=== PATIENT | male | born 1990 | race Caucasian/White ===

== ENCOUNTER 2016-11-19 07:01 | Day surgery (SDC) | payer OTHER ==
[2016-11-19] MEDS ORDERED: LACTATED RINGERS 1,000 ML IV SCH ×2 (07:49→08:00)
[2016-11-19 07:57] VITALS: RESP 16; TEMP 97.6
[2016-11-19] MEDS ORDERED: LIDOCAINE 1% 20 ML VIAL (10MG/ML) FOR IV START INTRADERMA ONE (07:59)
[2016-11-19] MEDS ORDERED: TRIAMCINOLONE ACETONIDE 40 MG/ML 1 ML VIAL ONE (08:04)
[2016-11-19] MEDS ORDERED: fentaNYL (PF) 50 MCG/ML 2 ML AMP ONE (08:04)
[2016-11-19] MEDS ORDERED: BUPIVACAINE (PF) 0.25% 30 ML VIAL ONE (08:04)
[2016-11-19] MEDS ORDERED: MIDAZOLAM 2 MG/2 ML VIAL ONE (08:04)
[2016-11-19] MEDS ORDERED: IOHEXOL 180 MG/ML 1 ML ML ONE (08:04)
--- NOTE | 2016-11-19 08:25 | P.PCN ---
Date of Procedure: 11/19/16 Preoperative Diagnosis: Left lumbar radiculopathy Postoperative Diagnosis: Left lumbar radiculopathy Procedure(s) Performed: Lumbar epidural steroid injection under fluoroscopic guidance Anesthesia: MAC Surgeon: Rex Mcgrath Pathology: none sent Condition: stable Disposition: PACU Description of Procedure: The patient was seen in preop holding area consent was obtained then he was brought into the procedure room and placed in prone position. Skin was prepped with Betadine 3 and draped in a sterile manner. Lidocaine 1% was used to numb the skin above the target point that was at the L4 5 level in the left paramedian approach. I used 20-gauge 3-1/2 inch ToAllFreed epidural needle with loss -of-resistance to air to identify the epidural space. There was positive loss- of-resistance to air at about 9 cm from skin negative aspiration for any CSF or blood negative paresthesia. I then injected 1 mL of Isovue which showed typical epidurogram with AP and lateral views of fluoroscopy after that I injected 80 mg of Kenalog +2 MLS of Marcaine 0.25% +4 MLS of posterior free normal saline to a total volume of 7 MLS in epidural space. Pt tolerated procedure well. For his next procedure I think we should use the longer epidural needle ( a 5 or 6 inch needle).
[2016-11-19] MEDS ORDERED: IV FLUID CONTINUATION 1,000 ML IV ONE (08:31)
--- NOTE | 2016-11-19 08:32 | FL ---
EXAMINATION TYPE: FL guided pain mgmt statistic DATE OF EXAM: 11/19/2016 8:26 AM HISTORY: Flouroscopy time 6 seconds of fluoroscopy provided. IMPRESSION: 1. Fluoroscopy time.
[2016-11-19 09:03] VITALS: BP 105/68; PULSE 74
--- NOTE | 2016-11-22 17:42 | CDI ---
Dear Dr. Mcgrath, Per your procedure note MAC sedation is documented. The Pain Procedure Record, however, has nothing marked under Anesthesia Plan and Versed/Fentanyl with times documented in the section below. This is conflicting documentation that needs clarification for proper reporting purposes. Please clarify if the anesthesia provided for Odette Camejo was MAC (Monitored Anesthesia Care) or Conscious/Moderate Sedation> Please document this clarification on an addendum to the procedure note. Thank you for your time Evelin Abdi,[facility] Outpatient [employer] Architect Patricia Smith Liveroof [email or web address]
--- NOTE | 2017-01-02 11:43 | CE ---
ADDENDUM: Moderate sedation provided instead of MAC sedation.
== END 2016-11-19 09:04 | disposition home or self-care (01) ==
LOC: ORPAIN 07:01
PROVIDERS: ATTEND Anesthesiology
DX: M54.16 Radiculopathy, lumbar region (principal)
CPT/HCPCS: 62323; 99152; J2250; J3301; Q9965; J3010

== ENCOUNTER 2017-01-29 07:44 | Day surgery (SDC) | payer OTHER ==
[2017-01-26 15:10] VITALS: BMI 39.3
[~2017-01-29 07:44] MED LIST: LACTATED RINGERS 1,000 ML IV SCH
[2017-01-29 08:07] VITALS: RESP 16; TEMP 96.7
[2017-01-29] MEDS ORDERED: LIDOCAINE 1% 20 ML VIAL (10MG/ML) FOR IV START SQ ONE (08:16)
[2017-01-29] MEDS ORDERED: fentaNYL (PF) 50 MCG/ML 2 ML AMP ONE (09:06)
[2017-01-29] MEDS ORDERED: TRIAMCINOLONE ACETONIDE 40 MG/ML 1 ML VIAL ONE (09:06)
[2017-01-29] MEDS ORDERED: MIDAZOLAM 2 MG/2 ML VIAL ONE (09:06)
[2017-01-29] MEDS ORDERED: IOHEXOL 180 MG/ML 1 ML ML ONE (09:06)
[2017-01-29] MEDS ORDERED: IV FLUID CONTINUATION 1,000 ML IV ONE (09:32)
--- NOTE | 2017-01-29 09:32 | P.PCN ---
Date of Procedure: 01/29/17 Procedure(s) Performed: PREOPERATIVE DIAGNOSIS: 1- Lumbar Degenerative Disc Diseases 2-Lumbar radiculopathy. 3-lumbar disc herniation POSTOPERATIVE DIAGNOSIS: Same as preoperative diagnosis PROCEDURE 1. Lumbar epidural steroid injection under fluoroscopic guidance at the L4-5 level. 2. Lumbar epidurogram. ANESTHESIA: Local with 1% lidocaine 3 ml and IV sedation with Versed 2 mg , and [id number] Mcg EBL: Minimal PROCEDURE INDICATION: The patient with low back pain and radiculitis symptoms unresponsive to conservative treatment. Fluoroscopy was used to optimize visualization of the needle placement and to maximize safety. PROCEDURE DESCRIPTION / TECHNIQUE: The patient was seen and identified in the preoperative area. Risks, benefits , complications including but not limited to infections ,bleeding ,allergic reaction to the medications ,nerve damage and not complete pain releife , and alternatives were discussed with the patient. The patient agreed to proceed with the procedure and signed the consent. IV was started, and vital signs were stable. Patient was taken to the OR and time out was completed. The patient was placed in the prone position on procedure table and a pillow was placed under the abdomen to reduce lumbar lordosis. The lumbosacral area was prepped and draped in the usual sterile fashion.ere closely monitored during the procedure. Conscious sedation was used during the procedure to decrease patients anxiety. Vital signs was monitered during the entire procedure. Using anterior-posterior fluoroscopy, the L4-5 interlaminar space was identified and the skin over this site was marked and then infiltrated with 1% lidocaine subcutaneously. Subsequently, a 20-gauge Tuohy epidural needle was inserted and advanced toward the epidural space using the ``Loss of resistance technique and guided by AP and lateral fluoroscopy. The correct needle position in the epidural space was verified with the injection of 2 mL of the water soluble contrast dye Omnipaque 180 contrast and observing an excellent epidurogram with the epidural spread of the dye, after negative aspiration for blood and CSF and in the absence of paresthesias. Again after negative aspiration, a 6 ml mixture containing 80 mg of Kenalog and 2 ml of preservative free Normal Saline, and 2 ml of preservative free lidocaine 1% solution was injected and a washout of epidurogram was seen. Needle was withdrawn intact, skin was cleansed, and bandages were applied. COMPLICATIONS: None DISPOSITION / PLANS: The patient was placed in a supine position and transferred to the recovery area in a stable condition for observation. There was no evidence of lower extremity motor or sensory deficit after the procedure. Patient was discharged from the recovery room after meeting discharge criteria. Home discharge instructions were given to the patient by the staff. The patient was reexamined prior to discharge. The patient will schedule a follow up in the clinic in 2-4 weeks.
[2017-01-29 09:52] VITALS: BP 121/72; PULSE 87
--- NOTE | 2017-01-29 10:21 | FL ---
Fluoroscopy HISTORY: Pain 3 seconds fluoroscopy time supplied to the referring clinician. 1 intraoperative C-arm images docume nt the procedure. See dictated report from anesthesia.
== END 2017-01-29 10:11 | disposition home or self-care (01) ==
LOC: ORPAIN 07:44
PROVIDERS: ATTEND Specialist
DX: M51.16 Intervertebral disc disorders with radiculopathy, lumbar region (principal); Z91.030 Bee allergy status
CPT/HCPCS: 62323; J2250; J3301; Q9965; J3010

== ENCOUNTER → 2017-03-06 | Outpatient (CLI) | payer OTHER | END | disposition home or self-care (01) | LOC: LABWHC1 09:19 | PROVIDERS: ATTEND Psychiatry & Neurology Psychiatry | DX: Z51.81 Encounter for therapeutic drug level monitoring (principal); Z79.899 Other long term (current) drug therapy | CPT/HCPCS: 80306 ==

== ENCOUNTER → 2017-07-16 | Outpatient (CLI) | payer OTHER ==
[2017-07-16 12:57] VITALS: RESP 16
[2017-07-16 13:08] VITALS: BP 122/79; PULSE 84
--- NOTE | 2017-07-16 14:10 | P.CONS ---
History of Present Illness - Reason for Consult Consult date: 07/16/17 - History of Present Illness This is. This 26 years old male with a chronic history of severe low back pain, with lumbar herniated disc disease and lumbar disc desiccation and lumbar facet degeneration, we have done lumbar epidural steroid injection patient reported that he had some benefit but currently is complaining of increased severe low back and mid back pain, with radiation to the lower extremity associated with some numbness and tingling sensation with occasional weakness in the lower extremity, reported that occasionally he would lose control over his lower extremity , and also he is complaining of severe mid back pain localized in the mid back area, pain intensity increases with any movement Past Medical History Past Medical History: Asthma, Musculoskeletal Disorder Additional Past Medical History / Comment(s): HERNIATED DISCS, back pain radiates marissa legs History of Any Multi-Drug Resistant Organisms: None Reported Additional Past Surgical History / Comment(s): EAR TUBES. Pain Procedures. Past Anesthesia/Blood Transfusion Reactions: Motion Sickness Past Psychological History: ADD/ADHD, Bipolar, Depression Smoking Status: Former smoker Past Alcohol Use History: None Reported Additional Past Alcohol Use History / Comment(s): started smoking at age 14; quit 2 months ago; uses electric cigs with nicotine Past Drug Use History: None Reported - Past Family History Mother Family Medical History: No Reported History Son(s) Family Medical History: Cancer Father Family Medical History: Deep Vein Thrombosis (DVT) Medications and Allergies Home Medications Medication Instructions Recorded Confirmed Type Albuterol Inhaler [Ventolin 2 puff INHALATION Q4HR PRN 04/26/14 07/16/17 History Inhaler] Albuterol Nebulized [Ventolin 2.5 mg INHALATION QID PRN 04/26/14 07/16/17 History Nebulized] Beclomethasone Dipropionate [Qvar 2 puff INHALATION BID 04/26/14 07/16/17 History 80 mcg/puff] Fluticasone Propionate [Flonase] 1 spray EA NOSTRIL BID 04/26/14 07/16/17 History Ranitidine HCl [Zantac] 150 mg PO TID 04/26/14 07/16/17 History Naproxen [Naprosyn] 500 mg PO Q12HR #24 tab 05/17/14 07/16/17 Rx SUMAtriptan SUCCINATE [Imitrex] 100 mg PO DIRECTED PRN 02/27/15 10/05/17 History ARIPiprazole [Abilify] 5 mg PO DAILY 07/01/15 07/16/17 History Cyclobenzaprine [Flexeril] 10 mg PO BID PRN #60 tab 08/11/16 07/16/17 Rx Gabapentin [Neurontin] 400 mg PO TID #90 cap 10/01/16 07/16/17 Rx Lisdexamfetamine Dimesylate 1 tab PO DAILY 10/01/16 07/16/17 History [Vyvanse] lamoTRIgine [LaMICtal] 150 mg PO BID 01/26/17 07/16/17 History HYDROcodone/APAP 10-325MG [Walnut 1 tab PO BID PRN 07/16/17 07/16/17 History 10-325] traZODone HCL [TraZODone HCl] 200 mg PO HS PRN 07/16/17 07/16/17 History Allergies Allergy/AdvReac Type Severity Reaction Status Date / Time venom-honey bee Allergy extensive Verified 07/16/17 12:43 [bee venom (honey bee)] burning and itching mosquito bites Allergy Swelling Uncoded 07/16/17 12:43 Physical Exam Vitals: Vital Signs Pulse Resp BP Pulse Ox 07/16/17 12:47 84 16 122/79 97 Intake and Output 07/15/17 07/16/17 07/16/17 22:59 06:59 14:59 Other: Weight 127.006 kg Patient Weight 07/17/17 06:59 Weight 127.006 kg Physical Examinations : 1-Constitutiona : Cooperative , not in acute distress . 2-HEENT : nech ; supple , no Lymphadenopathy , normal thyroid size . eyes : no ptosis , no icterus, no photophobia . ENT : normal of hearing , normal oropharynx , no Thrush . 3- Respiratory : Chest clear to auscultations Bilaterally , no wheezing , no Rhonchi . 4- Cardiovascular : regular rate and rhythem , S1 , S2 , no S3 , no S4. 5- Gastrointestinal : abdomen soft no tenderness , bowel sounds positive all four quadrents , no organomegally . 6- Genitourinary : Defferred . 7- neurologic : Cranial nerve II to XII intact , no focal neurological deffecit . 8-psychatric : alert , oriented X 3 , appropriate affect , intact judgment and insight . 9-Lymphatic : no Lymphadenopathy . 10- musculoskeltal : Thoracic spine = flexion and extension of the mid back associated with severe pain Positive facet loading test thoracic area Positive anadenia in the thoracic area right side T7 -to T9 , Lumber spine = normal moter stegnth lower extremities ,thigh and legs .5/5 deep tendon reflexes : normal Knee Jerk , normal ankle Jerk . positive lumber facet Loading Test strait leg raising test positive at 30 degree , RT ,LT , Fabere test positive RT and positive LT . Assessment and Plan Plan: Assessment and plan= chronic low back pain secondary to lumbar degenerative disc disease , lumbar spondylosis with lumbar facet arthropathy , lumbar herniated disc disease Patient had a new complaint/mid back pain mostly secondary to thoracic herniated disc disease Status post lumbar epidural steroid injections patient continues to have severe low back pain and also mid back pain chronic and current use of high-risk medication (opioids) Patient denies any side effects of the current pain medication and the current treatment/medication ML and the patient to do activity of daily living , Diagnoses, prognosis, treatment options, including but not limited to physical therapy, medication management, interventional therapies, and surgery, were discussed with the patient All the questions answered Patient signed the narcotic agreement, and he was orally counseled, not to overuse, not to abuse, not to Divert , not tp sell pain medication, and to take it as prescribed only, Patient was counseled not to drive or operate heavy equipment while using narcotic medication, and advised not to use alcohol or any Illicit drugs while using the narcotis, the patient's verbalized understanding that lack of compliance with any of the above instructions and will likely to cause discharge from the pain service, not to renew his narcotic prescriptions Medication managements= patient will be given prescription refills for 1-Walnut every 6 hours dispense 30 with one refil Intervention = patient for reffered to have thoracic spine MRI and lumbar spine MRI to identify the etiology that causing the pain , Time with Patient: Less than 30
== END | disposition home or self-care (01) ==
LOC: PNWHC3 12:31
PROVIDERS: ATTEND Specialist
DX: M51.26 Other intervertebral disc displacement, lumbar region (principal); M51.36 Other intervertebral disc degeneration, lumbar region; M47.816 Spondylosis without myelopathy or radiculopathy, lumbar region; M46.86 Other specified inflammatory spondylopathies, lumbar region; Z79.899 Other long term (current) drug therapy; Z79.1 Long term (current) use of non-steroidal anti-inflammatories (NSAID); Z91.030 Bee allergy status; Z87.891 Personal history of nicotine dependence
CPT/HCPCS: 99211

== ENCOUNTER 2017-07-31 01:17 | Emergency (ER) | payer OTHER ==
[2017-07-31 01:31] VITALS: BP 158/91; PULSE 95; RESP 16; TEMP 98.3
[2017-07-31] MEDS ORDERED: SULFAMETH-TMP DS STARTER PACK 2 TAB BTL PO STA (01:38)
--- NOTE | 2017-07-31 01:57 | ED ---
Extremity Problem HPI - General Chief complaint: Extremity Problem,Nontraumatic Stated complaint: Poss infection left foot Time Seen by Provider: 07/31/17 01:33 Source: patient, RN notes reviewed, old records reviewed Mode of arrival: ambulatory Limitations: no limitations - History of Present Illness Initial comments: 26-year-old male presents emergency Department chief complaint of after great toe infection. Patient reports that he thought he had an ingrown toenail last week and did try to partially remove his nail. Patient reports that he seemed to get the majority of the suction out over the past 2 days it seemed to recur. At he reports it got worse after he wears boots. Patient reports that previous ingrown toenails. Patient states he's never saw a employment office clerk before. He's had ingrown toenails removed by his primary care physician. At this time patient states he is not diabetic. He has not been on any recent antibiotics. Denies any fever or chills, or difficulty with range of motion of his foot or toes. Denies any peripheral paresthesias. - Related Data Home Medications Medication Instructions Recorded Confirmed Albuterol Inhaler [Ventolin 2 puff INHALATION Q4HR PRN 04/26/14 07/16/17 Inhaler] Albuterol Nebulized [Ventolin 2.5 mg INHALATION QID PRN 04/26/14 07/16/17 Nebulized] Beclomethasone Dipropionate [Qvar 2 puff INHALATION BID 04/26/14 07/16/17 80 mcg/puff] Fluticasone Propionate [Flonase] 1 spray EA NOSTRIL BID 04/26/14 07/16/17 Ranitidine HCl [Zantac] 150 mg PO TID 04/26/14 07/16/17 SUMAtriptan SUCCINATE [Imitrex] 100 mg PO DIRECTED PRN 12/08/14 07/16/17 ARIPiprazole [Abilify] 5 mg PO DAILY 07/01/15 07/16/17 Lisdexamfetamine Dimesylate 1 tab PO DAILY 10/01/16 07/16/17 [Vyvanse] lamoTRIgine [LaMICtal] 150 mg PO BID 01/26/17 07/16/17 HYDROcodone/APAP 10-325MG [Sherman 1 tab PO BID PRN 07/16/17 07/16/17 10-325] traZODone HCL [TraZODone HCl] 200 mg PO HS PRN 07/16/17 07/16/17 Previous Rx's Medication Instructions Recorded Naproxen [Naprosyn] 500 mg PO Q12HR #24 tab 05/17/14 Cyclobenzaprine [Flexeril] 10 mg PO BID PRN #60 tab 08/11/16 Gabapentin [Neurontin] 400 mg PO TID #90 cap 10/01/16 Sulfamethox-Tmp 800-160Mg [Bactrim 2 tab PO Q12HR #40 tab 07/31/17 DS 800-160 mg] Allergies Allergy/AdvReac Type Severity Reaction Status Date / Time venom-honey bee Allergy extensive Verified 07/31/17 01:31 [bee venom (honey bee)] burning and itching mosquito bites Allergy Swelling Uncoded 07/31/17 01:31 Review of Systems ROS Statement: Those systems with pertinent positive or pertinent negative responses have been documented in the HPI. ROS Other: All systems not noted in ROS Statement are negative. Past Medical History Past Medical History: Asthma, Musculoskeletal Disorder Additional Past Medical History / Comment(s): HERNIATED DISCS, back pain radiates marissa legs History of Any Multi-Drug Resistant Organisms: None Reported Additional Past Surgical History / Comment(s): EAR TUBES. Pain Procedures. Past Anesthesia/Blood Transfusion Reactions: Motion Sickness Past Psychological History: ADD/ADHD, Bipolar, Depression Smoking Status: Former smoker Past Alcohol Use History: None Reported Past Drug Use History: None Reported - Past Family History Mother Family Medical History: No Reported History Son(s) Family Medical History: Cancer Father Family Medical History: Deep Vein Thrombosis (DVT) General Exam - General Exam Comments Initial Comments: 26-year-old male. No acute distress. Limitations: no limitations General appearance: alert, in no apparent distress Head exam: Present: atraumatic, normocephalic, normal inspection Eye exam: Present: normal appearance, PERRL, EOMI. Absent: scleral icterus, conjunctival injection, periorbital swelling ENT exam: Present: normal exam, mucous membranes moist Neck exam: Present: normal inspection. Absent: tenderness, meningismus, lymphadenopathy Respiratory exam: Present: normal lung sounds bilaterally. Absent: respiratory distress, wheezes, rales, rhonchi, stridor Cardiovascular Exam: Present: regular rate, normal rhythm, normal heart sounds. Absent: systolic murmur, diastolic murmur, rubs, gallop, clicks GI/Abdominal exam: Present: soft, normal bowel sounds. Absent: distended, tenderness, guarding, rebound, rigid Extremities exam: Present: normal inspection, full ROM, normal capillary refill. Absent: tenderness, pedal edema, joint swelling, calf tenderness Left Foot/Toe exam: Present: tenderness, swelling, erythema (Is tenderness swelling and erythema over the medial aspect of his great toenail. Evidence of a skin flap area. There is pus draining from the toenail.). Absent: normal inspection Neurovascular tendon exam: Present: no vascular compromise Gait: observed and normal Back exam: Present: normal inspection Neurological exam: Present: alert, oriented X3, CN II-XII intact Psychiatric exam: Present: normal affect, normal mood Course Vital Signs 07/31/17 01:28 Temperature 98.3 F Pulse Rate 95 Respiratory 16 Rate Blood Pressure 158/91 O2 Sat by Pulse 98 Oximetry Medical Decision Making - Medical Decision Making 26-year-old male since emergency Department chief complaint infected left toenail. He did try to remove the toenail one week ago. He was doing okay for the first few days but then over the past after wearing the bleeding became worse. Patient is not diabetic. He does have some pus draining from the medial aspect of the toenail. Aerobic wound culture obtained. I discussed that the toenail is be removed. He reports he does not have the toenail removed tonight. Patient's wound was somewhat open and there was pus draining from it. I discussed doing Epsom salts soaks. I will place the patient on Bactrim DS. Given first dose in emergency department. Discussed close follow- up with his primary care physician to have the toenail removed when he is okay with this. Patient advised to call paged primary care provider tomorrow. Patient nurse's treatment plan will comply. Return parameters were discussed. Disposition Clinical Impression: Ingrowing toenail with infection Disposition: HOME SELF-CARE Condition: Good Instructions: Ingrown Nail (ED) Additional Instructions: Is to do frequent Epsom salts soaks with the toe. Follow-up with her primary care provider. Call them tomorrow for an appointment for toenail removal. Return to the emergency department if any alarming signs or symptoms occur. Prescriptions: Sulfamethox-Tmp 800-160Mg [Bactrim DS 800-160 mg] 2 tab PO Q12HR #40 tab Referrals: Regina Martin MD [Primary Care Provider] - 1-2 days Raza Campbell DPM [STAFF PHYSICIAN] - 1-2 days Time of Disposition: 01:56
== END 2017-07-31 02:08 | disposition home or self-care (01) ==
LOC: EC 01:17
DX: L60.0 Ingrowing nail (principal); J45.909 Unspecified asthma, uncomplicated; F90.9 Attention-deficit hyperactivity disorder, unspecified type; F32.9 Major depressive disorder, single episode, unspecified; Z87.891 Personal history of nicotine dependence; Z79.51 Long term (current) use of inhaled steroids; Z79.899 Other long term (current) drug therapy; Z91.030 Bee allergy status; Z91.038 Other insect allergy status
CPT/HCPCS: 87070; 87077; 87186; 87205; 99284

== ENCOUNTER → 2017-08-27 | Outpatient (CLI) | payer OTHER ==
[2017-08-27 12:24] VITALS: BP 139/64; PULSE 90; RESP 20
--- NOTE | 2017-08-27 19:48 | P.PN ---
Subjective Progress Note Date: 08/27/17 This is a follow-up visit for this 27 years old male with a chronic history of severe low back pain, nausea with lumbar degenerative disc disease and lumbar spondylosis with lumbar facet arthropathy without myelopathy, lumbar epidural steroid injection in the past patient had short-term benefit from it, he continued to have severe low back pain, no radiation to the lower extremity but most of the pain localized in the low back area, the patient complaining of severe mid/upper back pain and we ordered MRI of the lumbar spine and annual MRI of the thoracic spine, the thoracic spine showed patient had herniated disc disease at T5 6, rile the lumbar spine showed patient had lumbar facet arthropathy and lumbar degenerative disc disease, he should continue to use the Neurontin 400 mg 3 times a day and [place] 10/[id number] 12 hours and Flexeril 10 mg twice a day he denies any side effect of the medication, he denies any excessive drowsiness or sleepiness and he denies any motor or sensory deficit Objective - Vital Signs Vital signs: Vital Signs Temp Pulse 90 08/27/17 12:18 Resp 20 08/27/17 12:18 BP 139/64 08/27/17 12:18 Pulse Ox 97 08/27/17 12:18 Intake & Output 08/27/17 08/27/17 08/28/17 06:59 18:59 06:59 Weight 129.727 kg - Exam Physical Examinations : 1-Constitutiona : Cooperative , not in acute distress . 2-HEENT : nech ; supple , no Lymphadenopathy , normal thyroid size . eyes : no ptosis , no icterus, no photophobia . ENT : normal of hearing , normal oropharynx , no Thrush . 3- Respiratory : Chest clear to auscultations Bilaterally , no wheezing , no Rhonchi . 4- Cardiovascular : regular rate and rhythem , S1 , S2 , no S3 , no S4. 5- Gastrointestinal : abdomen soft no tenderness , bowel sounds positive all four quadrents , no organomegally . 6- Genitourinary : Defferred . 7- neurologic : Cranial nerve II to XII intact , no focal neurological deffecit . 8-psychatric : alert , oriented X 3 , appropriate affect , intact judgment and insight . 9-Lymphatic : no Lymphadenopathy . 10- musculoskeltal : cervical spine = motor stregnth in the deltoid and biceps, motor stregnth biceps and the wrist extensors (C6) . motor stregnth in the triceps muscle . deep tendon reflexes normal at the biceps , normal at Brachioradialis , normal at the Triceps positive cervical facet loading test . Thoracic spine= positive facet loading test upper thoracic area at T5 6/ to T8 , Lumber spine = normal moter stegnth lower extremities ,thigh and legs .5/5 deep tendon reflexes : normal Knee Jerk , normal ankle Jerk . positive lumber facet Loading Test strait leg raising test positive at 30 degree , RT ,LT , Fabere test positive RT and positive LT . Assessment and Plan Plan: Assessment and plan= chronic low back pain secondary to lumbar degenerative disc disease , lumbar spondylosis with lumbar facet arthropathy , Upper/mid back pain secondary to thoracic herniated disc disease had partial and short-term benefit after the lumbar epidural steroid injections chronic and current use of high-risk medication (opioids) Patient denies any side effects of the current pain medication and the current treatment/medication ML and the patient to do activity of daily living , Diagnoses, prognosis, treatment options, including but not limited to physical therapy, medication management, interventional therapies, and surgery, were discussed with the patient All the questions answered Patient signed the narcotic agreement, and he was orally counseled, not to overuse, not to abuse, not to Divert , not tp sell pain medication, and to take it as prescribed only, Patient was counseled not to drive or operate heavy equipment while using narcotic medication, and advised not to use alcohol or any Illicit drugs while using the narcotis, the patient's verbalized understanding that lack of compliance with any of the above instructions and will likely to cause discharge from the pain service, not to renew his narcotic prescriptions Medication managements= patient will be given prescription refills for 1-Neurontin 400 mg 3 times a day (from PCP ) 2-Flexeril 10 mg twice a day 3-[place] 10/325 2 Interventional pain management= Will schedule patient to have diagnostic medial branch block lumbar area is L3-4 /L4 5/L5-S1 and successful request we will proceed with the radiofrequency ablation of the medial branch lumbar area Refferal = S with the patient the option of referring him for surgical evaluation patient reported that he doesn't want to have surgery,, does not want to have any surgery at this age and is concerned about the side effects of the surgery Follow-up= medications refill in 2 months , Time with Patient: Less than 30
== END | disposition home or self-care (01) ==
LOC: PNWHC3 11:56
PROVIDERS: ATTEND Specialist
DX: M51.36 Other intervertebral disc degeneration, lumbar region (principal); M51.24 Other intervertebral disc displacement, thoracic region; M47.816 Spondylosis without myelopathy or radiculopathy, lumbar region; M46.86 Other specified inflammatory spondylopathies, lumbar region
CPT/HCPCS: 99211

== ENCOUNTER 2017-10-01 06:09 | Day surgery (SDC) | payer OTHER ==
[2017-09-29 15:24] VITALS: BMI 38.0
[2017-10-01 06:48] VITALS: RESP 16; TEMP 97.1
[2017-10-01] MEDS ORDERED: LACTATED RINGERS 1,000 ML IV ONE (06:54)
[2017-10-01] MEDS ORDERED: LACTATED RINGERS 1,000 ML IV SCH (07:15)
--- NOTE | 2017-10-01 08:01 | P.PCN ---
Date of Procedure: 10/01/17 Surgeon: Terence Lopez Pathology: none sent Condition: stable Disposition: PACU Description of Procedure: PREOPERATIVE DIAGNOSIS: Lumbar spondylosis without myelopathy and facet arthropathy. POSTOPERATIVE DIAGNOSIS: Lumbar spondylosis without myelopathy and facet arthropathy. PROCEDURE DESCRIPTION: Patient presents for L3-L4, L4-L5 and L5-S1 diagnostic medial branch blocks under fluoroscopic guidance. The procedure is performed using fluoroscopic guidance during needle placement to assure proper position and maximize safety. ANESTHESIA: Local with 1% lidocaine; conscious sedation EBL: Minimal PROCEDURE INDICATION: Patient with lumbar facet arthropathy signs and symptoms, failed conservative tx, here for diagnostic medial branch block #1 today. Pt does not take any blood thinning medications. PROCEDURE DESCRIPTION: The patient was seen and identified in the preoperative area. Risks, benefits, complications, and alternatives were discussed with the patient (including but not limited to incomplete pain relief, bleeding, infection, nerve damage, and allergies to medications), the patient agreed to proceed with the procedure and signed the consent after all questions were answered. Patient was taken to the OR and time out was completed to verify proper patient, position, laterality of pain, and allergies. Pt was placed in the prone position and a pillow was placed under the abdomen to reduce lumbar lordosis. The lumbosacral area was prepped and draped in the usual sterile fashion. Using oblique fluoroscopy, the eye of the "Jose dog" of right L4 vertebral body, which corresponds to the path of the medial branch originating from the level above, which is L3 in this case, was identified. Subsequently, a 22-gauge 3.5-inch spinal needle was inserted under fluoroscopic guidance toward the eye of the "Jose dog" of the right L4 vertebral body, corresponding to the junction of the superior articular process and the transverse process of the pedicle of the same level. After needle tip confirmation on lateral view and after negative aspiration for CSF and blood and without paresthesias, 1 mL of a 6 ml solution of 0.5% preservative-free bupivacaine and 40 mg Kenalog was injected. Subsequently the needle was withdrawn intact and the same procedure was repeated for the right L4, right L5, left L3, left L4, and left L5 medial branches which together with right L3 medial branch correspond to the sensory innervation of the bilateral L3-L4, L4-L5, and L5-S1 facet joints. Needle was withdrawn intact after each injection. At the end of the procedure, the skin was cleansed and bandages were applied. COMPLICATIONS: None. DISPOSITION/PLAN: The patient taken to the recovery area after the procedure in a stable condition for observation. Patient was reexamined prior to discharge and there were no issues. Patient was discharged home, accompanied by an adult, after meeting discharged criteria. Discharge instructions were give to the patient by the staff. Patient was specifically instructed not to drive today and to rest for the rest of the day. Patient will follow up for repeat LMBB in approximately 4 weeks.
[2017-10-01] MEDS ORDERED: IV FLUID CONTINUATION 1,000 ML IV ONE (08:05)
--- NOTE | 2017-10-01 08:24 | FL ---
EXAMINATION TYPE: FL guided pain mgmt statistic DATE OF EXAM: 10/01/2017 HISTORY: Flouroscopy time 19 seconds of fluoroscopy provided. IMPRESSION: 1. Fluoroscopy time.
[2017-10-01 08:58] VITALS: BP 133/63; PULSE 68
== END 2017-10-01 09:08 | disposition home or self-care (01) ==
LOC: ORPAIN 06:09
PROVIDERS: ATTEND Anesthesiology
DX: G89.29 Other chronic pain (principal); M51.16 Intervertebral disc disorders with radiculopathy, lumbar region; M47.26 Other spondylosis with radiculopathy, lumbar region; M46.96 Unspecified inflammatory spondylopathy, lumbar region; F31.9 Bipolar disorder, unspecified; Z91.030 Bee allergy status; Z79.891 Long term (current) use of opiate analgesic; Z79.1 Long term (current) use of non-steroidal anti-inflammatories (NSAID); Z79.51 Long term (current) use of inhaled steroids; Z79.899 Other long term (current) drug therapy
CPT/HCPCS: 64493; 64494; 64495; J2250; J3301; J3010; 99152

== ENCOUNTER 2017-11-03 07:39 | Day surgery (SDC) | payer OTHER ==
[2017-11-02 08:34] VITALS: BMI 38.0
[2017-11-03 08:54] VITALS: TEMP 97.6
[2017-11-03] MEDS ORDERED: LIDOCAINE 1% 20 ML VIAL (10MG/ML) FOR IV START INTRADERMA ONE (08:54)
[2017-11-03] MEDS ORDERED: KETOROLAC 30 MG/ML 1 ML VIAL IVP STA (09:32)
[2017-11-03 09:38] VITALS: RESP 18
--- NOTE | 2017-11-03 09:39 | P.PN ---
Progress Note - Text Progress Note Date: 11/03/17 PREOPERATIVE DIAGNOSIS: Lumbar spondylosis without myelopathy and facet arthropathy. POSTOPERATIVE DIAGNOSIS: Lumbar spondylosis without myelopathy and facet arthropathy. PROCEDURE DESCRIPTION: Patient presents for L3-L4, L4-L5 and L5-S1 diagnostic medial branch blocks under fluoroscopic guidance. The procedure is performed using fluoroscopic guidance during needle placement to assure proper position and maximize safety. ANESTHESIA: Local with 1% lidocaine; conscious sedation EBL: Minimal PROCEDURE INDICATION: Patient with lumbar facet arthropathy signs and symptoms, failed conservative tx, here for diagnostic medial branch block #2 today after 3 -4 days' near-complete relief from first procedure. Pt does not take any blood thinning medications. PROCEDURE DESCRIPTION: The patient was seen and identified in the preoperative area. Risks, benefits, complications, and alternatives were discussed with the patient (including but not limited to incomplete pain relief, bleeding, infection, nerve damage, and allergies to medications), the patient agreed to proceed with the procedure and signed the consent after all questions were answered. Patient was taken to the OR and time out was completed to verify proper patient, position, laterality of pain, and allergies. Pt was placed in the prone position and a pillow was placed under the abdomen to reduce lumbar lordosis. The lumbosacral area was prepped and draped in the usual sterile fashion. Using oblique fluoroscopy, the eye of the "Jose dog" of right L4 vertebral body, which corresponds to the path of the medial branch originating from the level above, which is L3 in this case, was identified. Subsequently, a 22-gauge 3.5-inch spinal needle was inserted under fluoroscopic guidance toward the eye of the "Jose dog" of the right L4 vertebral body, corresponding to the junction of the superior articular process and the transverse process of the pedicle of the same level. After needle tip confirmation on lateral view and after negative aspiration for CSF and blood and without paresthesias, 1 mL of a 6 ml solution of 0.5% preservative-free bupivacaine and 40 mg Kenalog was injected. Subsequently the needle was withdrawn intact and the same procedure was repeated for the right L4, right L5, left L3, left L4, and left L5 medial branches which together with right L3 medial branch correspond to the sensory innervation of the bilateral L3-L4, L4-L5, and L5-S1 facet joints. Needle was withdrawn intact after each injection. At the end of the procedure, the skin was cleansed and bandages were applied. COMPLICATIONS: None. DISPOSITION/PLAN: The patient taken to the recovery area after the procedure in a stable condition for observation. Patient was reexamined prior to discharge and there were no issues. Patient was discharged home, accompanied by an adult, after meeting discharged criteria. Discharge instructions were give to the patient by the staff. Patient was specifically instructed not to drive today and to rest for the rest of the day. Patient will follow up in clinic in approximately 3-4 weeks to discuss efficacy.
[2017-11-03 09:50] VITALS: BP 102/63; PULSE 66
[2017-11-03] MEDS ORDERED: IV FLUID CONTINUATION 1,000 ML IV ONE (10:19)
--- NOTE | 2017-11-03 11:16 | FL ---
EXAMINATION TYPE: FL guided pain mgmt statistic DATE OF EXAM: 11/03/2017 HISTORY: Flouroscopy time 10 seconds of fluoroscopy provided. IMPRESSION: 1. Fluoroscopy time.
== END 2017-11-03 10:21 | disposition home or self-care (01) ==
LOC: ORPAIN 07:39
PROVIDERS: ATTEND Anesthesiology
DX: G89.29 Other chronic pain (principal); M47.816 Spondylosis without myelopathy or radiculopathy, lumbar region; Z91.030 Bee allergy status; F32.9 Major depressive disorder, single episode, unspecified
CPT/HCPCS: 64493; 64494; 64495; J2250; J3301; J2001; J3010; 99152

== ENCOUNTER 2017-11-11 01:19 | Emergency (ER) | payer OTHER ==
[2017-11-11 01:34] VITALS: RESP 16
[2017-11-11] MEDS ORDERED: ACETAMINOPHEN TAB 325 MG TAB PO STA (01:34)
--- NOTE | 2017-11-11 01:41 | ED ---
ENT HPI - General Chief complaint: ENT Stated complaint: sore throat Time Seen by Provider: 11/11/17 01:29 Source: patient Mode of arrival: ambulatory Limitations: no limitations - History of Present Illness Initial comments: 27-year-old male patient presented to the emergency department today for evaluation of sore throat and cough. Patient states that sore throat started approximately 3 days ago with a scratchy sensation. He states that over the last couple of days the pain has been increasing. He states that he has painful swallowing. He states the pain is mostly located on the right side. He states he is also coughing with clear sputum production. He denies any shortness of breath or wheezing. He states he has been taking naproxen twice a day for chronic pain issues. He states this medication does not help his sore throat. He denies any fever or chills. Denies any nausea or vomiting. Patient denies any recent rash, chest pain, abdominal pain, diarrhea, constipation, back pain, numbness, tingling, dizziness, weakness, hematuria, dysuria, urinary urgency, urinary frequency, headache, visual changes, or any other complaints. - Related Data Home Medications Medication Instructions Recorded Confirmed Albuterol Inhaler [Ventolin 2 puff INHALATION Q4HR PRN 04/26/14 11/03/17 Inhaler] Albuterol Nebulized [Ventolin 2.5 mg INHALATION QID PRN 04/26/14 11/03/17 Nebulized] Beclomethasone Dipropionate [Qvar 2 puff INHALATION BID 04/26/14 11/03/17 80 mcg/puff] Fluticasone Propionate [Flonase] 1 spray EA NOSTRIL BID 04/26/14 11/03/17 Ranitidine HCl [Zantac] 150 mg PO BID 04/26/14 11/03/17 ARIPiprazole [Abilify] 5 mg PO DAILY 07/01/15 11/03/17 Lisdexamfetamine Dimesylate 40 mg PO DAILY 10/01/16 11/03/17 [Vyvanse] lamoTRIgine [LaMICtal] 150 mg PO BID 01/26/17 11/03/17 traZODone HCL [TraZODone HCl] 200 mg PO HS PRN 07/16/17 11/03/17 Loratadine [Claritin] 10 mg PO DAILY 11/02/17 11/03/17 Previous Rx's Medication Instructions Recorded Naproxen [Naprosyn] 500 mg PO Q12HR #24 tab 05/17/14 Gabapentin [Neurontin] 400 mg PO TID #90 cap 10/01/16 Cyclobenzaprine [Flexeril] 10 mg PO BID PRN #60 tab 08/27/17 HYDROcodone/APAP 10-325MG [[place] 1 tab PO Q6H PRN #30 tab 08/27/17 10-325] Allergies Allergy/AdvReac Type Severity Reaction Status Date / Time venom-honey bee Allergy extensive Verified 11/11/17 01:29 [bee venom (honey bee)] burning and itching mosquito bites Allergy Swelling Uncoded 11/11/17 01:29 Review of Systems ROS Statement: Those systems with pertinent positive or pertinent negative responses have been documented in the HPI. ROS Other: All systems not noted in ROS Statement are negative. Past Medical History Past Medical History: Asthma, Musculoskeletal Disorder Additional Past Medical History / Comment(s): HERNIATED DISCS, back pain radiates marissa legs, lingrown toenail left foot ( infected ) History of Any Multi-Drug Resistant Organisms: None Reported Additional Past Surgical History / Comment(s): EAR TUBES. Pain Procedures. Past Anesthesia/Blood Transfusion Reactions: Motion Sickness Past Psychological History: ADD/ADHD, Bipolar, Depression Smoking Status: Current every day smoker Past Alcohol Use History: Occasional Past Drug Use History: None Reported - Past Family History Mother Family Medical History: No Reported History Son(s) Family Medical History: Cancer Father Family Medical History: Deep Vein Thrombosis (DVT) General Exam Limitations: no limitations General appearance: alert, in no apparent distress, other (Physical well- developed, well-nourished adult male patient in no acute distress. Vital signs upon presentation are temperature 98.8F, pulse 82, respirations 16, blood pressure 154/89, pulse ox 98% on room air.) Eye exam: Present: normal appearance, PERRL, EOMI. Absent: scleral icterus, conjunctival injection, periorbital swelling ENT exam: Present: normal exam, mucous membranes moist, TM's normal bilaterally , other (Tonsils appears similar in size). Absent: normal oropharynx ( Oropharyngeal erythema, bilateral tonsillar hypertrophy, no tonsillar exudate) Respiratory exam: Present: normal lung sounds bilaterally. Absent: respiratory distress, wheezes, rales, rhonchi, stridor Cardiovascular Exam: Present: regular rate, normal rhythm, normal heart sounds. Absent: systolic murmur, diastolic murmur, rubs, gallop, clicks GI/Abdominal exam: Present: soft, normal bowel sounds. Absent: distended, tenderness, guarding, rebound, rigid Neurological exam: Present: alert, oriented X3, CN II-XII intact Psychiatric exam: Present: normal affect, normal mood Skin exam: Present: warm, dry, intact, normal color. Absent: rash Course Vital Signs 11/11/17 01:24 Temperature 98.8 F Pulse Rate 82 Respiratory 16 Rate Blood Pressure 154/89 O2 Sat by Pulse 98 Oximetry Medical Decision Making - Medical Decision Making 27-year-old male patient percents to the emergency department today with complaints of sore throat and cough. Physical examination did reveal oropharyngeal erythema and mild tonsillar hypertrophy. There is no tonsillar exudate noted, tonsils are similar in size. There is no lymphadenopathy or neck swelling noted. Chest x-ray showed no acute cardiopulmonary process. Patient was negative for strep and influenza. I did discuss findings with the patient and informed him he is most likely suffering from a viral upper respiratory including pharyngitis. He is instructed to continue taking anti- inflammatory pain medications. He is educated regarding nonpharmacological pain measures. He is instructed to follow-up with his primary care physician for recheck in 1-2 days. He is instructed to return here immediately for any new, worsening, or concerning symptoms. He verbalizes understanding and agrees with this - Lab Data Lab Results 11/11/17 11/11/17 Range/Units 01:59 01:59 Influenza Type A RNA Not Detected (Not Detectd) Influenza Type B (PCR) Not Detected (Not Detectd) Group A Strep Rapid Negative (Negative) - Radiology Data Radiology results: report reviewed, image reviewed Two-view x-ray of the chest shows a heart and mediastinum are normal. Lungs are clear. Diaphragm is normal. Bony thorax is intact. Impression by Dr. Kirby shows normal chest with no change. Disposition Clinical Impression: Viral pharyngitis Disposition: HOME SELF-CARE Condition: Good Instructions: Pharyngitis (ED) Additional Instructions: Gargle with warm saltwater solutions. Continue taking home pain medications as directed. Eat soothing foods like warm teas, broths, or cool foods like ice creams. Follow-up with your primary care physician for recheck in 1-2 days. Return here immediately for any new, worsening, or concerning symptoms. Referrals: Regina Martin MD [Primary Care Provider] - 1-2 days Time of Disposition: 02:35
--- NOTE | 2017-11-11 02:23 | XR ---
EXAMINATION TYPE: XR chest 2V DATE OF EXAM: 11/11/2017 COMPARISON: 07/01/2012 HISTORY: Sore throat TECHNIQUE: Frontal and lateral views of the chest are obtained. FINDINGS: The heart and mediastinum are normal. Lungs are clear. Diaphragm is normal. Bony thorax is intact. IMPRESSION: Normal chest. No change.
[2017-11-11 03:17] VITALS: BP 146/71; PULSE 72; TEMP 99
== END 2017-11-11 03:17 | disposition home or self-care (01) ==
LOC: EC 01:19
DX: J02.9 Acute pharyngitis, unspecified (principal); J45.909 Unspecified asthma, uncomplicated; F90.9 Attention-deficit hyperactivity disorder, unspecified type; F31.9 Bipolar disorder, unspecified; F17.200 Nicotine dependence, unspecified, uncomplicated; Z79.51 Long term (current) use of inhaled steroids; Z79.899 Other long term (current) drug therapy; Z91.030 Bee allergy status; Z91.038 Other insect allergy status
CPT/HCPCS: 71046; 87081; 87430; 87502; 99283

== ENCOUNTER → 2017-12-07 | Outpatient (CLI) | payer OTHER ==
[2017-12-07 12:23] VITALS: BP 113/73; PULSE 75; RESP 16
--- NOTE | 2017-12-07 13:05 | P.PN ---
Subjective Progress Note Date: 12/07/17 This is follow-up visit for this patient with a history of severe and chronic low back pain secondary to lumbar degenerative disc disease, lumbar facet arthropathy, we have done diagnostic medial branch block lumbar area x2 , and he got more than 70% decrease in his pain level after each diagnostic medial branch block , and he reported that his functional Mobility improved after each block , and he is here today to discuss the results of the block and also to discuss with him the next step , patient currently on [place] 7.5/325 when necessary Patient denies any side effects of the medication, denies excessive drowsiness or sleepiness, denies suicidal ideation, and reports that the current pain medication is NOT helping To control the pain and improve activity of daily living . Patient denies any motor or sensory deficit, denies change in bowel movement or urination, patient denies any fever or night sweats and patient here for follow-up visit and medication refill Objective - Vital Signs Vital signs: Vital Signs Temp Pulse 75 12/07/17 12:16 Resp 16 12/07/17 12:16 BP 113/73 12/07/17 12:16 Pulse Ox 97 12/07/17 12:16 Intake & Output 12/06/17 12/07/17 12/07/17 18:59 06:59 18:59 Weight 129.274 kg - Exam Physical Examinations : 1-Constitutiona : Cooperative , not in acute distress . 2-HEENT : nech ; supple , no Lymphadenopathy , normal thyroid size . eyes : no ptosis , no icterus, no photophobia . ENT : normal of hearing , normal oropharynx , no Thrush . 3- Respiratory : Chest clear to auscultations Bilaterally , no wheezing , no Rhonchi . 4- Cardiovascular : regular rate and rhythem , S1 , S2 , no S3 , no S4. 5- Gastrointestinal : abdomen soft no tenderness , bowel sounds positive all four quadrents , no organomegally . 6- Genitourinary : Defferred . 7- neurologic : Cranial nerve II to XII intact , no focal neurological deffecit . 8-psychatric : alert , oriented X 3 , appropriate affect , intact judgment and insight . 9-Lymphatic : no Lymphadenopathy . 10- musculoskeltal : , Lumber spine = normal moter stegnth lower extremities ,thigh and legs .5/5 deep tendon reflexes : normal Knee Jerk , normal ankle Jerk . lumber facet Loading Test positive Assessment and Plan Plan: Assessment and plan= chronic low back pain secondary to , lumbar spondylosis with lumbar facet arthropathy , he had excellent pain relief after the diagnostic medial branch block which was done on 2 different occasions chronic and current use of high-risk medication (opioids) Patient denies any side effects of the current pain medication and the current treatment/medication ML and the patient to do activity of daily living , Diagnoses, prognosis, treatment options, including but not limited to physical therapy, medication management, interventional therapies, and surgery, were discussed with the patient All the questions answered Patient signed the narcotic agreement, and he was orally counseled, not to overuse, not to abuse, not to Divert , not tp sell pain medication, and to take it as prescribed only, Patient was counseled not to drive or operate heavy equipment while using narcotic medication, and advised not to use alcohol or any Illicit drugs while using the narcotis, the patient's verbalized understanding that lack of compliance with any of the above instructions and will likely to cause discharge from the pain service, not to renew his narcotic prescriptions Medication managements= patient will be given prescription refills for [place] 7.5/325 every 6 hours when necessary dispensed 30 with one refill. The patient could benefit from radiofrequency ablation of the medial branch lumbar area is L 3-4 /L4 5/L5-S1 with fluoroscopy guidance , and if it is approved by his insurance,. we can do both sides at the same time because patient had consent about taking times off work . , Time with Patient: Less than 30
== END | disposition home or self-care (01) ==
LOC: PNWHC3 11:56
PROVIDERS: ATTEND Specialist
DX: G89.29 Other chronic pain (principal); M54.5 Low back pain; M51.36 Other intervertebral disc degeneration, lumbar region; M46.86 Other specified inflammatory spondylopathies, lumbar region; Z79.891 Long term (current) use of opiate analgesic
CPT/HCPCS: 99211

== ENCOUNTER 2018-01-04 08:54 | Day surgery (SDC) | payer OTHER ==
[2017-12-30 13:44] VITALS: BMI 38.9
[2018-01-04] MEDS: LACTATED RINGERS 1,000 ML IV SCH ×2 (10:46→10:47)
--- NOTE | 2018-01-04 11:25 | P.PCN ---
Date of Procedure: 01/04/18 Surgeon: Rex Mcgrath Description of Procedure: PREOPERATIVE DIAGNOSIS: Lumbar spondylosis without myelopathy, morbid obesity POSTOPERATIVE DIAGNOSIS: Lumbar spondylosis without myelopathy,morbid obesity PROCEDURES : Bilateral Radiofrequency thermocoagulation L3-L4, L4-L5, and L5- S1 medial branch, with fluoroscopic guidance ANESTHESIA: IV moderate conscious sedation with versed and fentanyl and local infiltration with lidocaine 1% 5 ml EBL: Minimal PROCEDURE INDICATION: The patient with low back pain secondary to lumbar facet arthropathy who had more than 50% relief of her pain with previous diagnostic lumbar medial branch block with bupivacaine. PROCEDURE DESCRIPTION / TECHNIQUE: The patient was seen and identified in the preoperative area. Risks, benefits, complications, including but not limited to risk of infection ,bleeding , allergic reactions to the medications and no complete pain relief , and alternatives were discussed with the patient, the patient agreed to proceed with the procedure and signed the consent. IV was started. Vital signs remained stable throughout the procedure. The patient requested to have both sides done at the same time because of his inability to take time off work easily. Patient was taken to the OR and time out was completed. The patient was placed in the prone position on the procedure table. The lumber area was prepped and draped in the usual sterile fashion. . Vital signs were closely monitored during the procedure .IV sedation was used during the procedure to decrease patients anxiety. The target points were identified as follows: For the L5-S1 level which corresponds to the dorsal ramus of L5 the target point was at the superior medial aspect of the sacral ala on both sides of the spine on the AP view of fluoroscopy and for the L3, and L4 medial branches the target points were at the connection between the transverse process and the superior articular process of L4, and L5 vertebra respectively on the left oblique view of fluoroscopy. skin was marked, and localized with 1% lidocaineat these points. Subsequently, an 18 -lq radiofrequency needles with a 10-mm curved active tips were advanced guided by fluoroscopy to each of the target points mentioned above in a superior medial direction to get the active tips as parallel as possible to the medial branches tracks. AP, oblique, and lateral views of fluoroscopy were used to verify needle tips position. Each level then underwent motor testing at 2.5 Hz and 0 to 3 volt with local stimulation, but no radicular symptoms down the legs. Thereafter radiofrequency thermocoagulation at 80 degrees celsius for 90 seconds after injecting 1 ml of PF Marcaine 0.5%(3 mls) with 20 mg of Kenalog. The same procedure was repeated on the right side using 20 mg of Kenalog. At the end of the procedure, the skin was cleansed and bandages were applied. COMPLICATIONS: No acute complications. DISPOSITION / PLANS: The patient was placed in a supine position and transferred to the recovery area in a stable condition for observation and was discharged from the recovery room after meeting discharge criteria. Home discharge instructions given to the patient by the staff. The patient was reexamined prior to discharge. The patient will schedule a follow up in the clinic in 2-4 weeks.
[2018-01-04 11:39] VITALS: RESP 16
[2018-01-04 11:56] VITALS: BP 116/67; PULSE 59
[2018-01-04] MEDS ORDERED: IV FLUID CONTINUATION 1,000 ML IV ONE (11:56)
--- NOTE | 2018-01-04 14:00 | FL ---
Fluoroscopy HISTORY: Pain 41 seconds fluoroscopy time supplied to the referring clinician. 2 intraoperative C-arm images docum ent the procedure. See dictated report from anesthesia.
== END 2018-01-04 12:08 | disposition home or self-care (01) ==
LOC: ORPAIN 08:54
PROVIDERS: ATTEND Anesthesiology
DX: M47.816 Spondylosis without myelopathy or radiculopathy, lumbar region (principal); E66.01 Morbid (severe) obesity due to excess calories; Z68.38 Body mass index [BMI] 38.0-38.9, adult
CPT/HCPCS: 64635; 64636 ×2; J2250; J3301; J3010; 99152; 99153

== ENCOUNTER → 2018-02-01 | Outpatient (CLI) | payer BC ==
[2018-02-01 12:38] VITALS: BP 125/82; PULSE 72; RESP 16
--- NOTE | 2018-02-01 13:30 | P.PN ---
Subjective Progress Note Date: 02/01/18 This is follow-up visit for this patient with a history of severe and chronic low back pain secondary to lumbar degenerative spondylosis with lumbar facet arthropathy, we have done The frequency ablation of the median branch lumbar area , and the pain improved significantly after the radiofrequency patient currently on [place] 10/325 every 6 hours and he uses 1 tablet every 2-3 days , Neurontin 400 mg 3 times a day , Flexeril 10 mg twice a day Patient denies any side effects of the medication, denies excessive drowsiness or sleepiness, denies suicidal ideation, and reports that the current pain medication is NOT helping To control the pain and improve activity of daily living . Patient denies any motor or sensory deficit, denies change in bowel movement or urination, patient denies any fever or night sweats and patient here for follow-up visit and medication refill Objective - Vital Signs Vital signs: Vital Signs Temp Pulse 72 02/01/18 12:29 Resp 16 02/01/18 12:29 BP 125/82 02/01/18 12:29 Pulse Ox Intake & Output 01/31/18 02/01/18 02/01/18 18:59 06:59 18:59 Weight 130.181 kg - Exam Physical Examinations : 1-Constitutiona : Cooperative , not in acute distress . 2-HEENT : nech ; supple , no Lymphadenopathy , normal thyroid size . eyes : no ptosis , no icterus, no photophobia . ENT : normal of hearing , normal oropharynx , no Thrush . 3- Respiratory : Chest clear to auscultations Bilaterally , no wheezing , no Rhonchi . 4- Cardiovascular : regular rate and rhythem , S1 , S2 , no S3 , no S4. 5- Gastrointestinal : abdomen soft no tenderness , bowel sounds positive all four quadrents , no organomegally . 6- Genitourinary : Defferred . 7- neurologic : Cranial nerve II to XII intact , no focal neurological deffecit . 8-psychatric : alert , oriented X 3 , appropriate affect , intact judgment and insight . 9-Lymphatic : no Lymphadenopathy . 10- musculoskeltal : , Lumber spine = normal moter stegnth lower extremities ,thigh and legs .5/5 Assessment and Plan Plan: Assessment and plan= chronic low back pain secondary to lumbar spondylosis with lumbar facet arthropathy , status post radiofrequency ablation of the medial branch lumbar area Name Jaye significantly after the radiofrequency chronic and current use of high-risk medication (opioids) Patient denies any side effects of the current pain medication and the current treatment/medication ML and the patient to do activity of daily living , Diagnoses, prognosis, treatment options, including but not limited to physical therapy, medication management, interventional therapies, and surgery, were discussed with the patient All the questions answered Patient signed the narcotic agreement, and he was orally counseled, not to overuse, not to abuse, not to Divert , not tp sell pain medication, and to take it as prescribed only, Patient was counseled not to drive or operate heavy equipment while using narcotic medication, and advised not to use alcohol or any Illicit drugs while using the narcotis, the patient's verbalized understanding that lack of compliance with any of the above instructions and will likely to cause discharge from the pain service, not to renew his narcotic prescriptions Medication managements= patient will be given prescription refills for [place] 10/325 every 6 hours dispensed 30 with 2 refills Patient will continue to use the Neurontin 400 mg 3 times a day and Flexeril 10 mg twice a day she is getting prescription refills from his primary care , Time with Patient: Less than 30
== END | disposition home or self-care (01) ==
LOC: PNWHC3 12:21
PROVIDERS: ATTEND Specialist
DX: G89.29 Other chronic pain (principal); M47.816 Spondylosis without myelopathy or radiculopathy, lumbar region; M46.96 Unspecified inflammatory spondylopathy, lumbar region; Z98.890 Other specified postprocedural states; Z79.891 Long term (current) use of opiate analgesic; Z79.899 Other long term (current) drug therapy
CPT/HCPCS: 99211

== ENCOUNTER → 2018-08-04 | Outpatient (CLI) | payer BC ==
[2018-08-04 12:06] VITALS: BP 136/87; PULSE 65; RESP 14
--- NOTE | 2018-08-04 13:41 | P.PAINPG ---
Subjective Progress Note Date: 08/04/18 This is follow-up visit for this patient with a history of severe and chronic low back pain secondary to lumbar degenerative disc disease, lumbar facet arthropathy, We have done an interventional pain procedure radiofrequency ablation of the medial branch lumbar area L3 to S1 bilaterally which was done in December 2017 The patient currently on the [place] 10/325 every 6 hours when necessary, naproxen 500 mg every 12 when necessary, Neurontin 400 mg 3 times a day Patient denies any side effect of the medication , patient denies any excessive drowsiness or sleepiness, patient denies any suicidal ideation, Patient reported that the current medication is helping to control the pain and improve the activity of daily livings, Patient denies any motor or sensory deficit, denies any change in the bowel movement or urination, patient denies any fever or night sweats. Patient here today for follow-up visit and medication refill Objective - Vital Signs Vital signs: Vital Signs Temp Pulse 65 08/04/18 11:59 Resp 14 08/04/18 11:59 BP 136/87 08/04/18 11:59 Pulse Ox 96 08/04/18 11:59 Intake & Output 08/03/18 08/04/18 08/04/18 18:59 06:59 18:59 Weight 131.542 kg - Exam Physical Examinations : 1-Constitutiona : Cooperative , not in acute distress . 2-HEENT : nech ; supple , no Lymphadenopathy , normal thyroid size . eyes : no ptosis , no icterus, no photophobia . ENT : normal of hearing , normal oropharynx , no Thrush . 3- Respiratory : Chest clear to auscultations Bilaterally , no wheezing , no Rhonchi . 4- Cardiovascular : regular rate and rhythem , S1 , S2 , no S3 , no S4. 5- Gastrointestinal : abdomen soft no tenderness , bowel sounds , no organomegally . 6- Genitourinary : Defferred . 7- neurologic : Cranial nerve II to XII intact , no focal neurological deffecit . 8-psychatric : alert , oriented X 3 , appropriate affect , intact judgment and insight . 9-Lymphatic : no Lymphadenopathy . 10- musculoskeltal : Lumber spine moter stegnth lower extremities , thigh and legs 5/5 Right side , 5/5 Left side deep tendon reflexes : normal Knee Jerk , normal ankle Jerk positive lumber facet Loading Test Assessment and Plan Plan: Assessment and plan= chronic low back pain secondary to lumbar degenerative disc disease , lumbar spondylosis with lumbar facet arthropathy . Pain improved significantly after we did the radiofrequency ablation medial branch lumbar area in December 2017 chronic and current use of high-risk medication (opioids) Patient denies any side effects of the current pain medication and the current treatment/medication helping the patient to do activity of daily living , Diagnoses, prognosis, treatment options, including but not limited to physical therapy, medication management, interventional therapies, and surgery, were discussed with the patient All the questions answered The narcotic consent was signed and patient agreed and understood the side effects and complications of opioid treatment. Patient signed the narcotic agreement, and was orally counseled, not to overuse, not to abuse, not to Divert , not tp sell pain medication, and to take it as prescribed only, Patient was counseled not to drive or operate heavy equipment while using narcotic medication, and advised not to use alcohol or any Illicit drugs while using the narcotis. understanding that lack of compliance with any of the above instructions, will likely to cause discharge from, the pain service, not to renew his narcotic prescriptions MAPS Reviwed and it was apropriate . Medication managements= patient will be given prescription refills for [place] 10/325 every 6 hours dispense 30 with 2 refills He will follow up with the pain clinic in 3 months, Next visit if he continued to have pain we will consider doing a repeat radiofrequency ablation of the medial branch lumbar area , Time with Patient: Less than 30 PQRS Measure Charge Sheet Measure #130: Documentation of Current Meds in Medical Chart: Patient's medications documented in chart Measure #226: Tobacco Use: Screen & Cessation Intervention: Pt screened for tobacco use AND intervention given Measure #111: Pneumonia Vaccination: Pneumococcal vaccine NOT administered or previously given Measure #47: Advance Care Plan: Advance care planning discussed & documented, pt chose/unable to give Measure #412: Opioid Treatment Agreement: Documented signed opioid trtmnt agreemnt min once during opioid trtmnt Measure #408: Opioid Therapy Follow-up Evaluation: Patient had f/u eval minimum every 3 months during opioid therapy Measure #317: Preventitive Care & Scrn High Bld Press & F/U: Normal blood pressure, f/u not required Measure #128: Body Mass Index (BMI) Screening & Follow-up: BMI documented ABOVE normal parameters - f/u documented Measure #131: Pain Assessment & Follow-up: Pain positive & plan documented, Follow-up scheduled Measure #431: Unhealthy Alcohol Use Preventative Care & Scrn: Patient not identified as an unhealthy alcohol user PQRS Narrative: Smoking Status Current every day smoker Do You Want the Pneumonia No Vaccine AT THIS TIME? Narcotic Agreement Date Signed 02/01/18 Blood Pressure 136/87 Pain Intensity [Lower Back] 0 Scale Used Numeric (1 - 10) Hx Alcohol Use (MH) No Home Medications: Ambulatory Orders Albuterol Inhaler [Ventolin Inhaler] 2 puff INHALATION Q4HR PRN 04/26/14 Albuterol Nebulized [Ventolin Nebulized] 2.5 mg INHALATION QID PRN 04/26/14 Beclomethasone Dipropionate [Qvar 80 mcg/puff] 2 puff INHALATION BID 04/26/14 Fluticasone Propionate [Flonase] 1 spray EA NOSTRIL BID 04/26/14 Ranitidine HCl [Zantac] 150 mg PO BID 04/26/14 Naproxen [Naprosyn] 500 mg PO Q12HR #24 tab 05/17/14 Gabapentin [Neurontin] 400 mg PO TID #90 cap 10/01/16 lamoTRIgine [LaMICtal] 150 mg PO BID 01/26/17 Loratadine [Claritin] 10 mg PO DAILY 11/02/17 HYDROcodone/APAP 10-325MG [[place] 10-325] 1 tab PO Q6H PRN #30 tab 02/01/18 Controlled Substance Measures - Controlled Substance Measures Is patient prescribed a controlled substance at discharge?: Yes When asked, does pt state using other controlled substances?: No If prescribed controlled substance>3 days was MAPS reviewed?: Yes If Rx opioid, was Start Talking consent form obtained?: Yes If opioid is for acute pain is fill amount 7 days or less?: No Was information provided regarding opioid addiction?: Yes
== END | disposition home or self-care (01) ==
LOC: PNWHC3 11:42
PROVIDERS: ATTEND Specialist
DX: G89.29 Other chronic pain (principal); M51.36 Other intervertebral disc degeneration, lumbar region; M47.816 Spondylosis without myelopathy or radiculopathy, lumbar region; M46.96 Unspecified inflammatory spondylopathy, lumbar region; F17.200 Nicotine dependence, unspecified, uncomplicated; Z79.899 Other long term (current) drug therapy; Z79.1 Long term (current) use of non-steroidal anti-inflammatories (NSAID); Z79.891 Long term (current) use of opiate analgesic
CPT/HCPCS: 99211

== ENCOUNTER → 2018-10-27 | Outpatient (CLI) | payer BC ==
[2018-10-27 13:45] VITALS: BP 120/78; PULSE 68; RESP 18
--- NOTE | 2018-10-27 13:53 | P.PN ---
Progress Note - Text Progress Note Date: 10/27/18 Patient returns for followup for chronic back pain with radiation to LLE, patient had recent radio frequency ablation bilateral L3-L4, L4-L5, L5-S1 in December 2017. He noted excellent relief for greater than 8 months of greater than 80%. VAS today is a 4-10 in severity at its worse and gets about a 7-8 out of 10 in severity. He takes medication when necessary and rarely runs out of prescription. Pain is worse with movement exercise and work. It's better with rest and medication. Patient is interested in repeating radio frequency ablation because of excellent results. No complications with medication Today, pt denies new-onset weakness, bowel/bladder incontinence, or any other signs or symptoms of cauda equina syndrome. There are no signs of acute intoxication, and no indications of medication diversion or overuse. In addition to above, 13-point review of systems is also negative for chest pain , shortness of breath, changes in vision, changes in hearing, new onset weakness , abdominal pain, diarrhea, extreme fatigue, malaise, fever, skin changes, homicidal or suicidal ideation, or bowel or bladder incontinence. Vital Signs: Reviewed in EMR Gen: WDWN, AAOx3, NAD, obese HEENT: NCAT, EOMI, hearing grossly normal Pulm: resp unlabored Abd: soft, NT, ND Neck: supple, trachea midline Lumbar paravertebral tenderness: + Facet loading: + +left side> right side SI joint tenderness: + L side Gerry's test: + L > R Straight leg raise: + LLE at 35 degrees Neuro: No sensory or muscle strength deficits Imaging: Reviewed in EMR Assessment: 1. lumbar herniated disc 2. lumbar radiculopathy 3. lumbar spondylosis without myelopathy Plan: 1. Medications: No medication returns today. 2. Investigation: Maps reviewed and appropriate with patient's history. 3. Intervention: We'll schedule patient for lumbar radio frequency ablation L3- L4, L4-L5, L5-S1. 4. Disposition: Return to clinic for radio frequency ablation PQRS measures: 1-Patient's medications are documented in the chart. 2-Tobacco use is positive, counseling given 3-Patient has not had a pneumococcal vaccine. 4-Advanced care planning discussed, patient unable to give. 5-Opioid contract signed with the patient. 6-Pain positive, follow-up visit or procedure scheduled 7-Patient's blood pressure measured and documented, and patient will follow up with the primary care due to hypertension. 8-Patient's weight was measured, and body mass index ABOVE the normal limits, and counseling was done. Patient instructed to follow up with PCP. 9-Patient WAS NOT identified as an unhealthy alcohol user.
== END | disposition home or self-care (01) ==
LOC: PNWHC3 12:19
PROVIDERS: ATTEND Anesthesiology
DX: G89.29 Other chronic pain (principal); M51.16 Intervertebral disc disorders with radiculopathy, lumbar region; M47.26 Other spondylosis with radiculopathy, lumbar region; Z98.890 Other specified postprocedural states
CPT/HCPCS: 99211

== ENCOUNTER 2018-11-08 08:54 | Day surgery (SDC) | payer BC ==
[~2018-11-08 08:54] MED LIST changes: -LACTATED RINGERS 1,000 ML IV SCH; +SODIUM CHLORIDE 0.9% 500 ML 500 ML IV SCH
[2018-11-08 09:42] VITALS: RESP 18; TEMP 98.2
[2018-11-08] MEDS ORDERED: LACTATED RINGERS 1,000 ML IV ONE (09:53)
[2018-11-08] MEDS ORDERED: LIDOCAINE 1% 20 ML VIAL (10MG/ML) FOR IV START INTRADERMA ONE (09:54)
--- NOTE | 2018-11-08 10:55 | P.PCN ---
Date of Procedure: 11/08/18 Procedure(s) Performed: PREOPERATIVE DIAGNOSIS: 1-Lumbar Spondylosis with Facet Arthropathy without myelopathy. POSTOPERATIVE DIAGNOSIS: 1- Lumbar Spondylosis with Facet Arthropathy without myelopathy. PROCEDURES : Right Radiofrequency thermocoagulation, L3-L4, L4-L5, and L5-S1 medial branch, with fluoroscopic guidance. ANESTHESIA: Moderate sedation with intravenous versed 2 mg and fentaneyl 100 mcg, and local infiltration with Ropivacaine 0.5 % . EBL: Minimal PROCEDURE INDICATION: The patient with low back pain secondary to lumbar facet arthropathy who had more than 50% relief of her pain with previous diagnostic lumbar medial branch block with bupivacaine. PROCEDURE DESCRIPTION / TECHNIQUE: The patient was seen and identified in the preoperative area. Risks, benefits, complications, including but not limited to risk of infection ,bleeding , allergic reactions to the medications and no complete pain releife , and alternatives were discussed with the patient, the patient agreed to proceed with the procedure and signed the consent. IV was started. Vital signs remained stable throughout the procedure. Patient was taken to the OR and time out was completed. The patient was placed in the prone position on the procedure table. The lumber area was prepped and draped in the usual sterile fashion. . Vital signs were closely monitored during the procedure .IV sedation was used during the procedure to decrease patients anxiety. Using AP and then oblique fluoroscopy, the ``eye of the Jose dog corresponding to the connection between the superior and transverse articular processes of right L3, L4, and L5 were identified, marked, and localized with 1% lidocaine. Subsequently, a 18 -hz radiofrequency cannula with a 10- mm active tip was advanced guided by fluoroscopy to each of the``eyes of the Jose dog at right L3, L4, and L5. Each site then underwent sensory testing at 50 Hz and 0 to 1 volt and motor testing at 2.5 Hz and 0 to 3 volt with local stimulation, but no radicular symptoms down the legs. Thereafter the right L3-4, L4-5, and L5-S1 sites underwent radiofrequency thermocoagulation at 80 degrees celsius for 90 seconds after injecting 0.5 ml of PF Ropivacaine 1ml, then after the thermocoagulation done , 1 ml of the block solution containing Depo-medrol 40 mg and 3 ml of Ropivacaine 0.5% was injected at the right L3-4 , L4-5 , and L5-S1, levels after negative aspiration of CSF and blood and with no paresthesias. Cannulas were retracted while injecting lidocaine 1% until the needle is out. At the end of the procedure, the skin was cleansed and bandages were applied. COMPLICATIONS: No acute complications. DISPOSITION / PLANS: The patient was placed in a supine position and transferred to the recovery area in a stable condition for observation and was discharged from the recovery room after meeting discharge criteria. Home discharge instructions given to the patient by the staff. The patient was reexamined prior to discharge. The patient will schedule a follow up in the clinic in 2-4 weeks.
--- NOTE | 2018-11-08 11:01 | FL ---
EXAMINATION TYPE: FL guided pain mgmt statistic DATE OF EXAM: 11/08/2018 HISTORY: Flouroscopy time 28 seconds of fluoroscopy provided. IMPRESSION: 1. Fluoroscopy time.
[2018-11-08] MEDS ORDERED: IV FLUID CONTINUATION 1,000 ML IV ONE (11:02)
[2018-11-08 11:08] VITALS: PULSE 54
[2018-11-08 11:23] VITALS: BP 117/66
== END 2018-11-08 11:50 | disposition home or self-care (01) ==
LOC: ORPAIN 08:54
PROVIDERS: ATTEND Specialist
DX: M47.816 Spondylosis without myelopathy or radiculopathy, lumbar region (principal)
CPT/HCPCS: 64636 ×2; 64635; J2250; J1030; J3010; 99152; 99153

== ENCOUNTER 2018-11-30 08:18 | Day surgery (SDC) | payer BC ==
[2018-11-30] MEDS ORDERED: LACTATED RINGERS 1,000 ML IV ONE (08:36)
[2018-11-30 08:37] VITALS: RESP 18; TEMP 98.9
[2018-11-30] MEDS ORDERED: LIDOCAINE 1% 20 ML VIAL (10MG/ML) FOR IV START INTRADERMA ONE (08:37)
--- NOTE | 2018-11-30 09:14 | P.PCN ---
Date of Procedure: 11/30/18 Anesthesia: MAC (Conscious sedation) Description of Procedure: PREOPERATIVE DIAGNOSIS: Lumbar Facet Arthropathy. POSTOPERATIVE DIAGNOSIS: Lumbar Facet Arthropathy. PROCEDURES : LEFT Radiofrequency thermocoagulation, L3, L4, medial branch, with fluoroscopic guidance- L5-S1 is not visualized secondary to sacralization of the L5 vertebra and was not attempted ANESTHESIA: IV sedation with versed 2 mg and fentanyl 100 g and local infiltration with lidocaine 1% 10 ml EBL: Minimal PROCEDURE INDICATION: The patient with low back pain secondary to lumbar facet arthropathy who had more than 50% relief of pain with previous diagnostic lumbar medial branch block with local anesthetic. PROCEDURE DESCRIPTION / TECHNIQUE: The patient was seen and identified in the preoperative area. Risks, benefits, complications, including but not limited to risk of infection ,bleeding , allergic reactions to the medications and no complete pain relief , and alternatives were discussed with the patient, the patient agreed to proceed with the procedure and signed the consent. IV was started. Vital signs remained stable throughout the procedure. Patient was taken to the OR and time out was completed. The patient was placed in the prone position on the procedure table. The lumber area was prepped and draped in the usual sterile fashion. . Vital signs were closely monitored during the procedure .IV sedation was used during the procedure to decrease patient anxiety. Using AP and then oblique fluoroscopy, the eye of the Jose dog corresponding to the connection between the superior and transverse articular processes of left L3, L4, and L5 were identified, marked, and localized with 1% lidocaine. Subsequently, a 20 [id number] radiofrequency cannula with a 10-mm active tip was advanced guided by fluoroscopy to each of the eyes of the Jose dog at L3 , L4, and L5. Each site then underwent sensory testing at 50 Hz and 0 to 1 volt and motor testing at 2.5 Hz and 0 to 3 volt with local stimulation, but no radicular symptoms down the legs. Thereafter the L3, L4, and L5 sites underwent radiofrequency thermocoagulation at 80 degrees celsius for 90 seconds after injecting 0.5 ml of PF lidocaine 1%. Then after the thermocoagulation was done , 1 ml of the block solution containing marcaine 0.5 % was injected at the left L3 , L4 , and L5, levels after negative aspiration of CSF and blood and with no paresthesias. Cannulas were retracted. At the end of the procedure, the skin was cleansed and bandages were applied. COMPLICATIONS: No acute complications. DISPOSITION / PLANS: The patient was placed in a supine position and transferred to the recovery area in a stable condition for observation and was discharged from the recovery room after meeting discharge criteria. Home discharge instructions given to the patient by the staff. The patient was reexamined prior to discharge. Follow-up in the clinic in one week for medication refill
[2018-11-30] MEDS ORDERED: IV FLUID CONTINUATION 875 ML IV ONE (09:18)
--- NOTE | 2018-11-30 09:27 | FL ---
EXAMINATION TYPE: FL guided pain mgmt statistic DATE OF EXAM: 11/30/2018 HISTORY: Flouroscopy time 23 seconds of fluoroscopy provided. IMPRESSION: 1. Fluoroscopy time.
[2018-11-30 09:39] VITALS: BP 123/77; PULSE 76
== END 2018-11-30 09:56 | disposition home or self-care (01) ==
LOC: ORPAIN 08:18
PROVIDERS: ATTEND Hospitalist
DX: M47.816 Spondylosis without myelopathy or radiculopathy, lumbar region (principal)
CPT/HCPCS: 64635; 64636; J2250; J3010; 99152

== ENCOUNTER → 2018-12-08 | Outpatient (CLI) | payer BC ==
[2018-12-08 12:25] VITALS: BP 131/93; PULSE 92; RESP 16
--- NOTE | 2018-12-08 12:42 | P.PN ---
Subjective Progress Note Date: 12/08/18 This is follow-up visit for this patient with a history of severe and chronic low back pain secondary to lumbar spondylosis with facet arthropathy, We have done interventional pain procedures radiofrequency ablation of the medial branch lumbar area L3 to S1, and the procedure helped his low back pain significantly Patients currently on [place] 10/325 every 6 hours when necessary , he used the pain medication very rarely, he prescription for 30 tablets per months Patient denies any side effects of the medication, denies excessive drowsiness or sleepiness, denies suicidal ideation, and reports that the current pain medication is helping to control the pain ,and improve activity of daily living , 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 Patient denies any motor or sensory deficit , patient denies any fever or night sweats, denies any change in the bowel movements or urination Physical Examinations : -Constitutional : Cooperative , not in acute distress . -HEENT : nech ; supple , no Lymphadenopathy , no Thyromegaly , normal thyroid size . eyes : no ptosis , no icterus, no photophobia . - Musculoskeltal : exams of the Lumber spine =motor strength lower extremities ,thigh and legs .02/13 Assessment and plan = Chronic low back pain secondary to lumbar spondylosis with facet arthropathy without myelopathy Pain improved after the radiofrequency ablation of the medial branch lumbar area L3 to S1 chronic and current use of high-risk medication (Opioids). The patient was counseled about risk of opioid use, psychological risk associated with opioids and was orally counseled to not overuse , divert,or sell dictations to take medications as prescribed only , and to restore medication in safe location , the patient counseled against driving while using narcotic medications , and also not to use alcohol or any illicit recreational drugs, patient's verbalized understanding that the lack of compliance will result in failure to renew narcotic prescription and possible discharge from the clinic - diagnoses, prognosis, and treatment options including but not limited to physical therapy, surgical interventions, interventional therapies , and medication management including narcotics and adjuvant medication were discussed with the patient and all the questions answered MAPS reviewed and it was apropriate Prescription refill for [place] 10/325 every 6 hours dispensed 30 with 1 refill and he will follow up with the pain clinic in 3 months - PQRS measures = - Patient's medications are documented in the chart. -Tobacco use is positive ,and counseling.Given.( Electronic cigarette ) -Patient's has not received pneumococcal vaccine. -Advanced care planning discussed, patient not eligible. -Opiate contract signed. -Pain positive and follow-up visit/procedure is scheduled. -Patient's blood pressure measured [ 131/93 ] , and documented in the record ,and patient will follow up with the primary care. -Patient's weight was measured and body mass index [43.4 ] above the, and patient instructed to follow-up with the primary care physician. -Patient was not identified as an unhealthy alcohol user Objective - Vital Signs Vital signs: Vital Signs Temp Pulse 92 12/08/18 12:17 Resp 16 12/08/18 12:17 BP 131/93 12/08/18 12:17 Pulse Ox 96 12/08/18 12:17 Intake & Output 12/07/18 12/08/18 12/08/18 18:59 06:59 18:59 Weight 145.15 kg
== END ==
LOC: PNWHC3 12:09
PROVIDERS: ATTEND Specialist
DX: G89.29 Other chronic pain (principal); M47.816 Spondylosis without myelopathy or radiculopathy, lumbar region; M46.96 Unspecified inflammatory spondylopathy, lumbar region; Z79.891 Long term (current) use of opiate analgesic; Z79.899 Other long term (current) drug therapy
CPT/HCPCS: 99211

== ENCOUNTER → 2018-12-29 | Outpatient (CLI) | payer BC ==
--- NOTE | 2018-12-29 14:14 | CT ---
EXAMINATION TYPE: CT abdomen pelvis w con DATE OF EXAM: 12/29/2018 COMPARISON: None. HISTORY: Abdominal pain, nausea and vomiting x2 weeks. Rule out appendicitis per order. CT DLP: 2456. 6 mGycm, Automated Exposure Control for Dose Reduction was Utilized. CONTRAST: CT scan of the abdomen and pelvis is performed with oral and with IV Contrast, patient injected with 100ml mL of Isovue 300. FINDINGS: LUNG BASES: No significant abnormality is appreciated. LIVER/GB: No significant abnormality is appreciated. PANCREAS: No significant abnormality is seen. SPLEEN: No significant abnormality is seen. ADRENALS: No significant abnormality is seen. KIDNEYS: No significant abnormality is seen. BOWEL: Oral contrast reaches level of terminal ileum. There is no suspicious small or large bowel dil atation present. Evaluation of distal bowel is slightly suboptimal due to lack of enteric contrast. M ild wall thickening in the transverse and left colon extending through sigmoid colon is present. Find ing presumed product of nondistention, mild colitis should be excluded clinically. Base of cecum appe ndix is not well visualized but no inflammatory changes present to suggest acute appendicitis. Portio n of normal-appearing appendix likely present coronal image 57. PROSTATE/SEMINAL VESICLES: No gross abnormality seen. LYMPH NODES: No greater than 1cm abdominal or pelvic lymph nodes are appreciated. OSSEOUS STRUCTURES: Transitional-type vertebra lumbosacral junction is identified sacralized on the l eft. Mild facet arthropathy lower lumbar spine is seen. OTHER: No significant additional abnormality is seen. IMPRESSION: No convincing evidence for acute appendicitis. No significant acute finding is definitive ly seen to account for patient's clinical symptoms.
== END | disposition home or self-care (01) ==
LOC: RADCTMAIN 12:11
PROVIDERS: ATTEND Family Medicine
DX: K35.30 Acute appendicitis with localized peritonitis, without perforation or gangrene (principal)
CPT/HCPCS: 74177; Q9967

== ENCOUNTER → 2019-01-17 | Day surgery (SDC) | payer BC ==
[2019-01-14 12:54] VITALS: BMI 44.7
[~2019-01-17] MED LIST changes: +LACTATED RINGERS 1,000 ML IV SCH; +LIDOCAINE 1% 20 ML VIAL (10MG/ML) FOR IV START INTRADERMA ONE; +LIDOCAINE 1% INJ 10MG/ML (20 ML MDV) ONE; +PROPOFOL 10 MG/ML 20 ML VIAL IV ONE; -SODIUM CHLORIDE 0.9% 500 ML 500 ML IV SCH
[2019-01-17 09:27] VITALS: TEMP 97.5
--- NOTE | 2019-01-17 10:00 | P.GSHP ---
History of Present Illness H&P Date: 01/17/19 Chief Complaint: Diarrhea This a 28-year-old male referred from Josee Isaac PA-C. Patient rents today for colonoscopy. He's had issues with diarrhea. Past Medical History Past Medical History: Asthma, Musculoskeletal Disorder Additional Past Medical History / Comment(s): HERNIATED DISCS, back pain radiates marissa legs, recent abd. pain-CT scan showed some colitis per pt. History of Any Multi-Drug Resistant Organisms: None Reported Additional Past Surgical History / Comment(s): EAR TUBES. Pain Procedures. Past Anesthesia/Blood Transfusion Reactions: No Reported Reaction, Motion Sickness Additional Past Anesthesia/Blood Transfusion Reaction / Comment(s): says tends to need alot of anesthesia to be put out Smoking Status: Current every day smoker - Past Family History Mother Family Medical History: No Reported History Son(s) Family Medical History: Cancer Father Family Medical History: Deep Vein Thrombosis (DVT) Medications and Allergies Home Medications Medication Instructions Recorded Confirmed Type Albuterol Inhaler [Ventolin 2 puff INHALATION Q4HR PRN 04/26/14 01/17/19 History Inhaler] Albuterol Nebulized [Ventolin 2.5 mg INHALATION QID PRN 04/26/14 01/17/19 History Nebulized] Beclomethasone Dipropionate [Qvar 2 puff INHALATION BID 04/26/14 01/17/19 History 80 mcg/puff] Fluticasone Propionate [Flonase] 1 spray EA NOSTRIL BID 04/26/14 01/17/19 History Ranitidine HCl [Zantac] 150 mg PO BID 04/26/14 01/17/19 History Gabapentin [Neurontin] 400 mg PO TID #90 cap 10/01/16 01/17/19 Rx lamoTRIgine [LaMICtal] 150 mg PO BID 01/26/17 01/17/19 History HYDROcodone/APAP 10-325MG [[place] 1 tab PO Q6H PRN #30 tab 02/01/18 01/17/19 Rx 10-325] Cyclobenzaprine [Flexeril] 10 mg PO BID 12/08/18 01/17/19 History Naproxen [Naprosyn] 500 mg PO Q12HR PRN 01/14/19 01/17/19 History Allergies Allergy/AdvReac Type Severity Reaction Status Date / Time venom-honey bee Allergy extensive Verified 01/14/19 12:38 [bee venom (honey bee)] burning and itching mosquito bites Allergy Swelling Uncoded 01/14/19 12:38 Surgical - Exam Vital Signs Temp Pulse Resp BP Pulse Ox 97.5 F L 81 16 140/80 98 01/17/19 09:26 01/17/19 09:26 01/17/19 09:26 01/17/19 09:26 01/17/19 09:26 - General well developed, well nourished, no distress - Eyes PERRL - ENT normal pinna - Neck no masses - Respiratory normal expansion - Cardiovascular Rhythm: regular - Abdomen Abdomen: soft, non tender Assessment and Plan Assessment: Diarrhea. We'll perform colonoscopy.
--- NOTE | 2019-01-17 10:12 | P.OP ---
Date of Procedure: 01/17/19 Preoperative Diagnosis: Diarrhea Postoperative Diagnosis: Colitis, sigmoid colon biopsy pending Procedure(s) Performed: Colonoscopy Anesthesia: MAC Surgeon: Edmond Swift Pathology: other (Sigmoid colon biopsy) Condition: stable Disposition: PACU Description of Procedure: The patient's placed on the endoscopy table in the lateral position. He received IV sedation. Digital rectal exam was performed which revealed no rebound. The flexible colonoscope was then placed patient anus and passed throughout the entire colon. The ileocecal valve was visualized. Cecum, ascending and transverse colon appeared normal. The descending colon was normal. In the sigmoid colon there were some mild erythematous changes. This area was biopsied. The scope was then brought back the rectum and this appeared normal. Scope was withdrawn for patient.
[2019-01-17 10:40] VITALS: BP 127/73; PULSE 70; RESP 18
== END | disposition home or self-care (01) ==
LOC: ORWHC2ENDO 09:08
PROVIDERS: ATTEND Surgery
DX: K52.9 Noninfective gastroenteritis and colitis, unspecified (principal); F17.200 Nicotine dependence, unspecified, uncomplicated; J45.909 Unspecified asthma, uncomplicated; Z79.899 Other long term (current) drug therapy; Z79.51 Long term (current) use of inhaled steroids; Z91.030 Bee allergy status; Z91.048 Other nonmedicinal substance allergy status
CPT/HCPCS: 88305; 45380; J2001; J2704

== ENCOUNTER → 2019-02-05 | Outpatient (CLI) | payer BC ==
--- NOTE | 2019-02-05 13:29 | NM ---
EXAMINATION TYPE: NM hepatobiliary w EF DATE OF EXAM: 02/05/2019 COMPARISON: CT 12/29/2018 HISTORY: Abdomen pain TECHNIQUE: After the intravenous administration of 4.77 mCi Tc 99m Mebrofenin hepatobiliary scintigra phy is performed. Immediate images post injection. FINDINGS: There is satisfactory initial accumulation of tracer by the liver. The gallbladder is visualized wit hin 6 minutes. The small bowel activity is noted within 18 minutes. At one hour 8 ounces of oral en sure plus is given to mimic CCK and gallbladder ejection fraction is calculated at 76 %, in the delaney l range. Therefore there is no scintigraphic evidence of cystic or common bile duct obstruction to s uggest acute cholecystitis or gallbladder dyskinesia. IMPRESSION: Exam is within normal limits.
== END | disposition home or self-care (01) ==
LOC: RADNMMAIN 08:56
PROVIDERS: ATTEND Family Medicine
DX: R10.84 Generalized abdominal pain (principal); R19.7 Diarrhea, unspecified; R11.0 Nausea
CPT/HCPCS: 78226; A9537

== ENCOUNTER 2019-03-14 08:43 | Day surgery (SDC) | payer BC ==
[2019-03-10 14:37] VITALS: BMI 42.0
[~2019-03-14 08:43] MED LIST changes: +DEXAMETHASONE SOD PHOSPHATE 10 MG/ML 1 ML VIAL IV ONE; +HEPARIN SODIUM,PORCINE 5,000 UNIT/ML 1 ML VIAL SQ ONE; -LIDOCAINE 1% 20 ML VIAL (10MG/ML) FOR IV START INTRADERMA ONE; +LIDOCAINE 1% 20 ML VIAL (10MG/ML) FOR IV START INTRADERMA PRN; -LIDOCAINE 1% INJ 10MG/ML (20 ML MDV) ONE; +MIDAZOLAM 2 MG/2 ML VIAL IV PRN; -PROPOFOL 10 MG/ML 20 ML VIAL IV ONE; +ceFAZolin 3 GM in SODIUM CHLORIDE 0.9% 100 ML IVPB ONE; +fentaNYL (PF) 50 MCG/ML 2 ML AMP IV PRN
[2019-03-14] MEDS ORDERED: ONDANSETRON 4 MG/2 ML VIAL IVP ONE (09:22)
[2019-03-14] MEDS ORDERED: DEXAMETHASONE SOD PHOS (MDV) 100 MG/10 ML VIAL IVP ONE (09:22)
--- NOTE | 2019-03-14 09:56 | P.GSHP ---
History of Present Illness H&P Date: 03/14/19 Chief Complaint: Right upper quadrant pain This is a 28-year-old male who presents today for laparoscopic cholecystectomy. Patient complaints of right quadrant pain. His recent HIDA scan shows an elevated ejection fraction. Patient describes pain when eating greasy and fried foods. Past Medical History Past Medical History: Asthma, GERD/Reflux, Musculoskeletal Disorder Additional Past Medical History / Comment(s): HERNIATED DISCS, back pain radiates marissa legs, recent abd. pain, colitis History of Any Multi-Drug Resistant Organisms: None Reported Additional Past Surgical History / Comment(s): myringotomy & tubes, epidural pain procedures Past Anesthesia/Blood Transfusion Reactions: No Reported Reaction, Motion Sickness Additional Past Anesthesia/Blood Transfusion Reaction / Comment(s): says tends to need alot of anesthesia to be put out Smoking Status: Current every day smoker - Past Family History Mother Family Medical History: No Reported History Son(s) Family Medical History: Cancer Father Family Medical History: Deep Vein Thrombosis (DVT) Medications and Allergies Home Medications Medication Instructions Recorded Confirmed Type Albuterol Inhaler [Ventolin 2 puff INHALATION Q4HR PRN 04/26/14 03/14/19 History Inhaler] Albuterol Nebulized [Ventolin 2.5 mg INHALATION QID PRN 04/26/14 03/14/19 History Nebulized] Beclomethasone Dipropionate [Qvar 2 puff INHALATION BID 04/26/14 03/14/19 History 80 mcg/puff] Fluticasone Propionate [Flonase] 1 spray EA NOSTRIL BID 04/26/14 03/14/19 History Gabapentin [Neurontin] 400 mg PO TID #90 cap 10/01/16 03/14/19 Rx lamoTRIgine [LaMICtal] 150 mg PO QAM 01/26/17 03/14/19 History HYDROcodone/APAP 10-325MG [[place] 1 tab PO Q6H PRN #30 tab 02/01/18 03/14/19 Rx 10-325] Cyclobenzaprine [Flexeril] 10 mg PO BID 12/08/18 03/14/19 History Naproxen [Naprosyn] 500 mg PO Q12HR PRN 01/14/19 03/14/19 History Omeprazole [PriLOSEC] 20 mg PO DAILY 03/10/19 03/14/19 History lamoTRIgine [LaMICtal] 175 mg PO HS 03/10/19 03/14/19 History Allergies Allergy/AdvReac Type Severity Reaction Status Date / Time venom-honey bee Allergy extensive Verified 03/14/19 09:20 [bee venom (honey bee)] burning and itching mosquito bites Allergy Swelling Uncoded 03/14/19 09:20 Surgical - Exam Vital Signs Temp Pulse Resp BP Pulse Ox 98.1 F 75 16 146/85 98 03/14/19 09:10 03/14/19 09:10 03/14/19 09:10 03/14/19 09:10 03/14/19 09:10 - General well developed, well nourished, no distress - Eyes PERRL - ENT normal pinna - Neck no masses - Respiratory normal expansion - Cardiovascular Rhythm: regular - Abdomen Abdomen: soft, non tender Assessment and Plan Assessment: Chronic cholecystitis We'll perform laparoscopic cholecystectomy.
[2019-03-14] MEDS ORDERED: KETOROLAC 30 MG/ML 1 ML VIAL ONE (10:04)
[2019-03-14] MEDS ORDERED: fentaNYL (PF) 50 MCG/ML 2 ML AMP ONE (10:04)
[2019-03-14] MEDS ORDERED: MIDAZOLAM 2 MG/2 ML VIAL ONE (10:04)
[2019-03-14] MEDS ORDERED: GLYCOPYRROLATE 0.2 MG/ML 2 ML VIAL ONE (10:04)
[2019-03-14] MEDS ORDERED: ROCURONIUM BROMIDE 10 MG/ML 10 ML VIAL IV ONE (10:04)
[2019-03-14] MEDS ORDERED: SUCCINYLCHOLINE CHLORIDE 100 MG/5 ML SYR IV ONE (10:04)
[2019-03-14] MEDS ORDERED: diphenhydrAMINE 50 MG/ML 1 ML VIAL ONE (10:04)
[2019-03-14] MEDS ORDERED: LIDOCAINE 1% INJ 10MG/ML (20 ML MDV) ONE (10:04)
[2019-03-14] MEDS ORDERED: HYDROmorphone (PF) 1 MG/ML ONE (10:04)
[2019-03-14] MEDS ORDERED: PROPOFOL 10 MG/ML 20 ML VIAL IV ONE (10:04)
[2019-03-14] MEDS ORDERED: NEOSTIGMINE 1 MG/ML 10 ML VIAL ONE (10:04)
[2019-03-14] MEDS ORDERED: BUPIVACAIN-EPI 0.25%-1:200,000 30 ML VIAL SQ ONE (10:31)
--- NOTE | 2019-03-14 10:46 | P.OP ---
Date of Procedure: 03/14/19 Preoperative Diagnosis: Cholecystitis Postoperative Diagnosis: Cholecystitis Procedure(s) Performed: Laparoscopic cholecystectomy Anesthesia: MAC Surgeon: Edmond Swift Estimated Blood Loss (ml): 5 Pathology: other (Gallbladder) Disposition: PACU Description of Procedure: The patient was placed on the operating table. The patient received a general endotracheal tube anesthesia. The patients abdomen was prepped and draped in the usual sterile fashion. Through an infraumbilical stab incision, the fascia of the anterior abdominal wall was grasped with a pair of Kochers and then the Veress needle was placed in the peritoneal cavity. Position of the Veress needle was confirmed with positive drop test. The abdomen was then insufflated. After adequate insufflation, the 10 mm trocar was placed in the peritoneal cavity. Following this the laparoscope was placed in the peritonea l cavity. The patient was placed in the head-up, right side up position and then a 5 mm trocar was placed in the right lateral and right subcostal position under direct visualization. A 8 mm trocar was placed in the epigastric position. The gallbladder was grasped in the fundus and infundibulum. Traction on the gallbladder was placed in the lateral and the cephalad positions. The triangle of Calot was visualized.. The cystic duct was bluntly dissected until the union of the cystic duct and common bile duct was seen. A critical view of safety was achieved. The cystic duct was then divided and sealed with the Harmonic scissors. A PDS Endoloop was then placed throughout the cystic duct stump. The cystic artery divided and sealed with the Harmonic scissors. The gallbladder was then removed from the liver bed using Harmonic scissors. The gallbladder was then extracted through the epigastric port site. Operative field was checked for any bleeding spots and Harmonic scissors was used to coagulate the liver bed. The abdomen was irrigated. The trocars were removed. The skin was closed using interrupted 3-0 Vicryl suture. Dermabond dressing were applied. The patient tolerated the procedure well.
[2019-03-14 11:14] VITALS: TEMP 97.9
[2019-03-14 11:58] VITALS: RESP 18
[2019-03-14 12:25] VITALS: BP 122/65; PULSE 63
== END 2019-03-14 12:58 | disposition home or self-care (01) ==
LOC: OR 08:43
PROVIDERS: ATTEND Surgery
DX: K81.1 Chronic cholecystitis (principal); K21.9 Gastro-esophageal reflux disease without esophagitis; F17.200 Nicotine dependence, unspecified, uncomplicated; Z79.51 Long term (current) use of inhaled steroids; Z79.899 Other long term (current) drug therapy; M54.10 Radiculopathy, site unspecified; K52.9 Noninfective gastroenteritis and colitis, unspecified; E66.9 Obesity, unspecified; Z68.41 Body mass index [BMI] 40.0-44.9, adult; J45.909 Unspecified asthma, uncomplicated; R73.03 Prediabetes; Z79.1 Long term (current) use of non-steroidal anti-inflammatories (NSAID); Z79.891 Long term (current) use of opiate analgesic; Z91.030 Bee allergy status; Z91.038 Other insect allergy status
CPT/HCPCS: 88304; 47562; J2250; J1200; J1644; J2710; J0690; J2405; J2001; J3010; J1885; J1170; J1100; J0330; J2704

== ENCOUNTER → 2020-04-26 | Outpatient (CLI) | payer BC ==
[2020-04-26 13:44] VITALS: BP 129/82; PULSE 71; RESP 16
--- NOTE | 2020-04-26 14:30 | P.PAINPG ---
Subjective Progress Note Date: 04/26/20 This is follow-up visit for this patient with a history of severe and chronic low back pain secondary to lumbar degenerative disc disease, lumbar facet arthropathy, We have done an interventional pain procedure radiofrequency ablation of the medial branch lumbar area L3 to S1 bilaterally which was done in October 2018, he gets excellent pain relief The patient currently on the [place] 10/325 every 6 hours when necessary, naproxen 500 mg every 12 when necessary, Neurontin 400 mg 3 times a day , F lexeril 10 mg 3 times a day He is getting prescription refills from his primary care Patient denies any side effect of the medication , patient denies any excessive drowsiness or sleepiness, patient denies any suicidal ideation,Patient reported that the current medication is helping to control the pain and improve the activity of daily livings,Patient denies any motor or sensory deficit, denies any change in the bowel movement or urination, patient denies any fever or night sweats. 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 -HEENT : nech : supple , no Lymphadenopathy , normal thyroid size . : eyes : no ptosis , no icterus, no photophobia . - neurologic : Cranial nerve II to XII intact , no focal neurological deffecit . -psychatric : alert , oriented X 3 , appropriate affect , intact judgment and insight . -Lymphatic : no Lymphadenopathy . - musculoskeltal : Thoracic spine: Positive facet loading test mid thoracic area, multiple trigger point identified in the thoracic paraspinal muscles right side T7 to T10 Lumber spine moter stegnth lower extremities ,thigh and legs 5/5 Right side , 5/5 Left side deep tendon reflexes : normal Knee Jerk , normal ankle Jerk lumber facet Loading Test =positive Right , positive Left Range of motion of the lumbar spine Flexion 60 degrees, extension 30 degrees strait leg raising test = negative bilaterally Fabere test= negative bilaterally. Assessment and Plan Plan: Assessment and plan=1-lumbar spondylosis with lumbar facet arthropathy. Patient had excellent pain relief after RFA of the medial branch lumbar area done October 2018 He will be good candidate for repeat RFA of the medial branch at L3, L4, L5 (target the facet joint L4-5 ,L5-S1) bilaterally 2-mid back pain secondary to thoracic myofascial pain syndrome versus thoracic spondylosis Patient will be good candidate to have right side trigger point injections T7 to T10 right paraspinal muscles If patient continued to have severe mid back pain after the trigger point injection then we will consider ordering an MRI of the thoracic spine, Patient will continue to use his current medication naproxen 500 mg twice a [place] 10/325 every 6 hours when necessary, Flexeril 10 mg 3 times a day and Neurontin 400 mg 3 times a day as prescribed by his primary care Time with Patient: Less than 30 PQRS Measure Charge Sheet Measure #130: Documentation of Current Meds in Medical Chart: Patient's medications documented in chart Measure #226: Tobacco Use: Screen & Cessation Intervention: Pt screened for tobacco use AND intervention given Measure #111: Pneumonia Vaccination: Pneumococcal vaccine administered or previously received Measure #47: Advance Care Plan: Advance care planning discussed & documented, pt chose/unable to give Measure #412: Opioid Treatment Agreement: No documentation of signed opioid treatment agreement Measure #408: Opioid Therapy Follow-up Evaluation: Patient had NO f/u eval minimum every 3 months during opioid therapy Measure #317: Preventitive Care & Scrn High Bld Press & F/U: Normal blood pressure, f/u not required Measure #128: Body Mass Index (BMI) Screening & Follow-up: BMI documented ABOVE normal parameters - f/u documented Measure #131: Pain Assessment & Follow-up: Pain positive & plan documented, Follow-up scheduled Measure #431: Unhealthy Alcohol Use Preventative Care & Scrn: Patient not identified as an unhealthy alcohol user PQRS Narrative: Smoking Status Current every day smoker Narcotic Agreement Date Signed 02/01/18 Blood Pressure 129/82 Pain Intensity [Back] 3 Scale Used Numeric (1 - 10) Hx Alcohol Use (MH) Yes: social Home Medications: Ambulatory Orders Albuterol Inhaler (Mhu) [Ventolin Inhaler] 2 puff INHALATION Q4HR PRN 04/26/14 Albuterol Nebulized [Ventolin Nebulized] 2.5 mg INHALATION QID PRN 04/26/14 Beclomethasone Dipropionate [Qvar 80 mcg/puff] 2 puff INHALATION BID PRN 04/26/14 Fluticasone Propionate [Flonase] 1 spray EA NOSTRIL BID 04/26/14 Gabapentin [Neurontin] 400 mg PO TID #90 cap 10/01/16 lamoTRIgine [LaMICtal] 200 mg PO BID 01/26/17 HYDROcodone/APAP 10-325MG [[place] 10-325] 1 tab PO Q6H PRN #30 tab 02/01/18 Cyclobenzaprine [Flexeril] 10 mg PO TID PRN 12/08/18 Naproxen [Naprosyn] 500 mg PO Q12HR 01/14/19 Omeprazole [PriLOSEC] 20 mg PO DAILY 03/10/19 ARIPiprazole [Abilify] 15 mg PO DAILY 04/20/20 Loratadine [Claritin] 10 mg PO DAILY 04/20/20 Sertraline [Zoloft] 50 mg PO DAILY 04/20/20 predniSONE 10 mg PO DIRECTED 04/20/20 Controlled Substance Measures - Controlled Substance Measures Is patient prescribed a controlled substance at discharge?: No
== END | disposition home or self-care (01) ==
LOC: PNWHC3 13:23
PROVIDERS: ATTEND Specialist
DX: M47.816 Spondylosis without myelopathy or radiculopathy, lumbar region (principal); M46.96 Unspecified inflammatory spondylopathy, lumbar region; F17.210 Nicotine dependence, cigarettes, uncomplicated; Z79.899 Other long term (current) drug therapy; Z79.891 Long term (current) use of opiate analgesic
CPT/HCPCS: 99211

== ENCOUNTER → 2020-05-17 | Day surgery (SDC) | payer BC ==
[2020-05-11 14:16] VITALS: BMI 34.5
[~2020-05-17] MED LIST changes: -DEXAMETHASONE SOD PHOSPHATE 10 MG/ML 1 ML VIAL IV ONE; -HEPARIN SODIUM,PORCINE 5,000 UNIT/ML 1 ML VIAL SQ ONE; +IV FLUID CONTINUATION 1,000 ML IV ONE; -LIDOCAINE 1% 20 ML VIAL (10MG/ML) FOR IV START INTRADERMA PRN; +LIDOCAINE 1% INJ 10MG/ML (20 ML MDV) ONE; +LIDOCAINE 4% (PF) 5 ML AMP ONE; -MIDAZOLAM 2 MG/2 ML VIAL IV PRN; +MIDAZOLAM 2 MG/2 ML VIAL ONE; +ROPIVACAINE 5MG/ML 20ML VIAL ONE; -ceFAZolin 3 GM in SODIUM CHLORIDE 0.9% 100 ML IVPB ONE; -fentaNYL (PF) 50 MCG/ML 2 ML AMP IV PRN; +fentaNYL (PF) 50 MCG/ML 2 ML AMP ONE
[2020-05-17 09:10] VITALS: TEMP 97.4
--- NOTE | 2020-05-17 10:15 | P.PCN ---
Date of Procedure: 05/17/20 Description of Procedure: PREOPERATIVE DIAGNOSIS: Lumbar Spondylosis POSTOPERATIVE DIAGNOSIS: Same PROCEDURES: Radiofrequency ablation of the L3, L4, L5 medial branches with fluoroscopic guidance bilaterally and bilateral thoracic paraspinal muscle trigger point injections x 4 total injections SURGEON: Mykel England MD. ANESTHESIA: Lidocaine 1% 5 mL, Moderate sedation with intravenous 3mg Versed and 150 mcg fentanyl, sedation time 40min EBL: Minimal Fluoroscopy was used for the procedure and images were saved in the radiology portion of the chart. PROCEDURE INDICATION: The patient with low back pain secondary to lumbar facet arthropathy who had more than 50% relief of pain with previous diagnostic lumbar medial branch block X2. PROCEDURE DESCRIPTION / TECHNIQUE: The patient was seen and identified in the preoperative area. Risks, benefits, complications, including but not limited to risk of infection ,bleeding , allergic reactions to the medications and incomplete pain relief , and alternatives were discussed with the patient, the patient agreed to proceed with the procedure and signed the consent. IV was started. The operative site was marked. Patient was taken to the OR and time out was completed. The patient was placed in the prone position on the procedure table. The lumbar area was prepped and draped in the usual sterile fashion. . Vital signs were closely monitored during the procedure .IV sedation was used during the procedure to decrease patients anxiety. Using AP and then oblique fluoroscopy, the "eye of the Jose dog" corresponding to the connection between the superior and transverse articular processes of the [] L4 and L5 as well as the sacral ala were identified, marked, and localized with 1% lidocaine. Subsequently, an 18 guage 100mm radiofrequency cannula with a 10-mm active tip was advanced guided by fluoroscopy to the identified target at each site. Needle positioning was confirmed on AP, oblique and lateral fluoroscopy. Motor testing at 2.5 Hz was done with paraspinal muscle stimulation only, and no radicular symptoms down the legs. Then 1 mL of 4% lidocaine was injected in each site. Radiofrequency thermocoagulation at 80 degrees celsius for 90 seconds was then performed. [place] were removed. Procedure was repeated on the other side Sterile dressings were applied. Of note patient does have lumbarized S1 segment. I then turned my attention to the thoracic paraspinal muscles. 2 trigger point injections were performed on each side for a total of 4 trigger point injections. Each injection had 1 mL of 0.5% ropivacaine. Prior each injection aspiration was negative for any blood. COMPLICATIONS: No acute complications. DISPOSITION / PLANS: The patient was placed in a supine position and transferred to the recovery area in a stable condition for observation and was discharged from the recovery room after meeting discharge criteria. Home discharge instructions given to the patient by the staff. The patient will follow up in clinic in 8 weeks.
[2020-05-17 10:19] VITALS: PULSE 67
[2020-05-17 10:31] VITALS: BP 112/74; RESP 18
--- NOTE | 2020-05-17 10:31 | FL ---
EXAMINATION TYPE: FL guided pain mgmt statistic DATE OF EXAM: 05/17/2020 HISTORY: Fluoroscopy time 35 seconds of fluoroscopy provided. IMPRESSION: 1. Fluoroscopy time.
== END ==
LOC: ORPAIN 08:56
PROVIDERS: ATTEND Anesthesiology
DX: M47.816 Spondylosis without myelopathy or radiculopathy, lumbar region (principal)
CPT/HCPCS: 20553; 64635; 64636; J2001 ×2; J2250; J3010; J2795; 99152; 99153

== ENCOUNTER → 2021-07-15 | Outpatient (CLI) | payer BC ==
--- NOTE | 2021-07-16 08:40 | XR ---
Cervical spine HISTORY: M 25.519 5 views of the cervical spine There is spondylosis noted at multiple levels, loss of disc height is greatest at C5-6, C2-3 and C3-4 . Cervical vertebral bodies show preserved height, alignment, and bone mineralization. Prevertebral s oft tissues are normal. There are facet arthropathy changes. Oblique images show some foraminal encro achment at C3-4, C5-6, C4-5 bilaterally. IMPRESSION: Degenerative disc disease and facet arthropathy.
--- NOTE | 2021-07-16 08:43 | XR ---
Right shoulder HISTORY: M 25.519 3 views of the right shoulder, comparison to previous exam 05/31/2012 Distal acromion is slightly downturned. Joint spaces, alignment, bone mineralization are stable. Ques tionable sclerosis present along the lateral margin of the scapula. No fracture or dislocation. IMPRESSION: Correlate for impingement. Sclerosis involving the lateral scapula is indeterminate but n ot changed. Alternate imaging may be of benefit.
== END | disposition home or self-care (01) ==
LOC: RADXRMAIN 16:29
PROVIDERS: ATTEND Physician Assistant
DX: M50.320 Other cervical disc degeneration, mid-cervical region, unspecified level (principal); M47.812 Spondylosis without myelopathy or radiculopathy, cervical region
CPT/HCPCS: 72050

== ENCOUNTER → 2021-07-24 | Outpatient (CLI) | payer BC ==
[2021-07-24 11:08] VITALS: BP 134/82; PULSE 82; RESP 18
--- NOTE | 2021-07-24 15:41 | P.PN ---
Subjective Progress Note Date: 07/24/21 This is follow-up visit for this patient with a history of severe and chronic low back pain secondary to lumbar degenerative disc disease, lumbar facet arthropathy, We have done an interventional pain procedure radiofrequency ablation of the medial branch lumbar area , done last year, he gets excellent pain relief Description currently complaining of severe right shoulder pain which she started 2 weeks ago, denies any initiating event and he reported that the pain mostly localized in the right shoulder with radiation to the cervical spine mainly on the right side and the shoulder blade area, feels some weakness in the right upper extremity and he feels some numbness and tingling sensation in the humerus area, he has decreased ability to abduct the right upper extremity The patient currently on the [place] 10/325 every 6 hours when necessary, naproxen 500 mg every 12 when necessary, Neurontin 400 mg 3 times a day , Flexeril 10 mg 3 times a day He is getting prescription refills from his primary care Patient denies any side effect of the medication , patient denies any excessive drowsiness or sleepiness, patient denies any suicidal ideation,Patient reported that the current medication is helping to control the pain and improve the activity of daily livings,Patient denies any motor or sensory deficit, denies any change in the bowel movement or urination, patient denies any fever or night sweats. 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 -HEENT : nech : supple , no Lymphadenopathy , normal thyroid size . : eyes : no ptosis , no icterus, no photophobia . - neurologic : Cranial nerve II to XII intact , no focal neurological deffecit . -psychatric : alert , oriented X 3 , appropriate affect , intact judgment and insight . -Lymphatic : no Lymphadenopathy . - musculoskeltal : Cervical Spine motor stregnth in the deltoid and biceps, normal right side , normal Left side motor stregnth biceps and the wrist extensors normal right side ,normal left side . motor stregnth in the triceps muscle . normal Right side , normal Left side deep tendon reflexes normal at the biceps , normal at Brachioradialis , normal at triceps. cervical facet loading test: Positive Bilaterally Spurling test= positive Right . Neck distraction test= positive Right . Lotus sign= positive right, Severe pain with lateral rotation of the right upper extremity Severe pain with abduction of the right upper extremity Decreased ability to abduct the right upper extremity to 60 Lumber spine moter stegnth lower extremities ,thigh and legs 5/5 Right side , 5/5 Left side Assessment and Plan-lumbar spondylosis with lumbar facet arthropathy. Patient had excellent pain relief after RFA of the medial branch lumbar area done last year -The right shoulder pain mostly secondary to right rotator cuff syndrome Patient will be referred for evaluation by orthopedic surgery Patient will continue to use his current medication naproxen 500 mg twice a [place] 10/325 every 6 hours when necessary, F lexeril 10 mg 3 times a day and Neurontin 400 mg 3 times a day as prescribed by his primary care Time with Patient: Less than 30 PQRS Measure Charge Sheet Measure #130: Documentation of Current Meds in Medical Chart: Patient's medications documented in chart Measure #226: Tobacco Use: Screen & Cessation Intervention: Pt screened for tobacco use AND intervention given Measure #111: Pneumonia Vaccination: Pneumococcal vaccine administered or previously received Measure #47: Advance Care Plan: Advance care planning discussed & documented, pt chose/unable to give Measure #412: Opioid Treatment Agreement: No documentation of signed opioid treatment agreement Measure #408: Opioid Therapy Follow-up Evaluation: Patient had NO f/u eval minimum every 3 months during opioid therapy Measure #317: Preventitive Care & Scrn High Bld Press & F/U: Normal blood pressure, f/u not required Measure #128: Body Mass Index (BMI) Screening & Follow-up: BMI documented ABOVE normal parameters - f/u documented Measure #131: Pain Assessment & Follow-up: Pain positive & plan documented, Follow-up scheduled Measure #431: Unhealthy Alcohol Use Preventative Care & Scrn: Patient not identified as an unhealthy alcohol user PQRS Narrative: Objective - Vital Signs Vital signs: Vital Signs Temp Pulse 82 07/24/21 10:49 Resp 18 07/24/21 10:49 BP 134/82 07/24/21 10:49 Pulse Ox 97 07/24/21 10:49
== END ==
LOC: PNWHC3 10:35
PROVIDERS: ATTEND Specialist
DX: M47.816 Spondylosis without myelopathy or radiculopathy, lumbar region (principal); M75.101 Unspecified rotator cuff tear or rupture of right shoulder, not specified as traumatic; F17.200 Nicotine dependence, unspecified, uncomplicated; Z91.030 Bee allergy status; Z91.038 Other insect allergy status
CPT/HCPCS: 99211

== ENCOUNTER → 2021-10-02 | Outpatient (CLI) | payer BC ==
--- NOTE | 2021-10-02 11:30 | CONS ---
CONSULTATION DATE OF SERVICE: 10/02/2021 This 31-year-old gentleman has been evaluated in [facility] for excessive daytime sleepiness and possible obstructive sleep apnea-hypopnea syndrome. Patient also has symptoms of restless legs. 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 until between 3 and 5 p.m. Sometimes he has problems falling asleep. He has a TV set in the bedroom. He sleeps in different positions. According to his , he snores and he wakes up from sleep up to 6 times with up to 4 episodes of nocturia. Positive history of restless legs and sweating. No history of hypnagogic hallucinations, sleep paralysis or cataplexy. After sleep, the patient wakes up tired, has difficulties paying attention, falling asleep, worrying about his sleep. He has problems with memory, concentration, irritability and depression. [place] Sleepiness Scale is in extremely high range at 20. PAST MEDICAL HISTORY: Asthma, back problems related to herniated disk, acid reflux, COVID-19 about 1-1/2 months ago, bipolar. PAST SURGICAL HISTORY: Cholecystectomy, radiofrequency ablation of the lumbar area for pain. MEDICATIONS: 1. Naproxen 500 mg twice a day. 2. Neurontin 400 mg 3 times a day. 3. Flexeril 10 mg 3 times a day. 4. Lamictal 200 mg twice a day. 5. Zoloft. 6. Abilify. 7. [place] 10/375 mg as needed q.6 hours. 8. Albuterol as needed. 9. Omeprazole twice a day. SOCIAL HISTORY: Negative for smoking nicotine. Positive for smoking vape. Alcohol consumption occasional. FAMILY HISTORY: Hypertension, epilepsy, cancer, diabetes, liver problems, sleep apnea. REVIEW OF SYSTEMS: Multiple awakenings from sleep, sleepiness, pain in the back. No fevers. No double vision. No recent chest pain. No shortness of breath. No abdominal pain. No bleeding episodes. No blood in the urine. No seizure episodes. PHYSICAL EXAMINATION: GENERAL: Pleasant gentleman without distress. VITAL SIGNS: BP 117/75, HR 72, RR 14, height 5 feet 10-1/2 inches, weight 252.2 pounds, body mass index 35.6, temperature 98.0, oxygen saturation at room air 96%. HEENT: PERRLA, EOMI, evaluation of oropharynx showed tongue protrudes midline. Low position of soft palate; Mallampati III. NECK: Supple, no JVD. Thyroid is not palpable. Wide neck; 18 inches in circumference. LUNGS: Clear to percussion and to auscultation. Good air exchange. No wheezing or rhonchi. HEART: S1, S2 regular. No murmurs, gallops, or rubs. ABDOMEN: Soft and nontender. Bowel sounds are present. No organomegaly appreciated. EXTREMITIES: No clubbing or cyanosis. 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 Cranial nerves 2 to 7 intact. There is no fasciculation or atrophy. noted. No focal deficits observed. IMPRESSION: 1. Snoring, multiple awakenings from sleep, low position of soft palate, Mallampati III, wide neck, 18 inches in circumference, sleepiness by [place] Sleepiness Scale; obstructive sleep apnea-hypopnea syndrome. 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 3. Very high level of [place] Sleepiness Scale at 20, dictating necessity to include narcolepsy and hypersomnia in differential diagnosis. 4. Obesity. BMI 35.6. 5. History of restless leg symptoms. 6. Patient is on opioids for pain, which may increase risk for central sleep apnea. 7. Back problems related to herniated disk pain in the back. 8. Acid reflux. 9. Status post COVID-19 1-1/2 months ago. 10.Bipolar disorder. 11.Status post cholecystectomy. 12.Status post radiofrequency ablation of lumbar area of for pain in the back. PLAN: 1. Home sleep apnea test for evaluation of patient's breathing during sleep. 2. Sleep hygiene with regular time in bed for at least 7-1/2 to 8 hours. 3. Precautions related to driving. No driving if feeling sleepiness. 4. I will maintain all necessary prescription for PAP supplies including mask, tube, filters. 5. Watching weight. 6. Follow-up visit in 6 months or earlier if patient has any problems. Thank you very much for referring this patient for consultation. Sincerely, Josep Rice MD, PhD, FAASM Diplomat of [place] [employer] Sleep Medicine Board of [place] [employer] [facility] [place] MMODL / IJN: [id number] /
== END ==
LOC: SLEEP 09:53
PROVIDERS: ATTEND Internal Medicine
DX: G47.33 Obstructive sleep apnea (adult) (pediatric) (principal); E66.9 Obesity, unspecified; G25.81 Restless legs syndrome; M53.80 Other specified dorsopathies, site unspecified; K21.9 Gastro-esophageal reflux disease without esophagitis; F31.9 Bipolar disorder, unspecified; F17.290 Nicotine dependence, other tobacco product, uncomplicated; Z86.16 Personal history of COVID-19; Z68.35 Body mass index [BMI] 35.0-35.9, adult; Z79.891 Long term (current) use of opiate analgesic; Z90.49 Acquired absence of other specified parts of digestive tract; Z98.890 Other specified postprocedural states; Z79.899 Other long term (current) drug therapy; Z91.030 Bee allergy status
CPT/HCPCS: 99211

== ENCOUNTER → 2022-01-02 | Outpatient (CLI) | payer BC ==
--- NOTE | 2022-01-02 08:09 | P.PN ---
Subjective Progress Note Date: 01/02/22 Principal diagnosis: A 31 yr old male with a history of severe and chronic neck & R shoulder pain secondary to cervical degenerative disc diseases with facet arthropathy presents today for neck and right shoulder pain evaluation. Pain extends from the base of his neck to the right side and shoots down the right upper extremity. It is 4 out of 10 in intensity, dull, achy with a shooting character as it descends down the right upper extremity. Pain is provoked by extension of the neck and overhead reaching which provokes the pain to 8 out of 10 in intensit y. Pain is alleviated with medications, Biofreeze, physical therapy that ended in 09/01, home exercise regimen, repositioning and rest. Interventional pain procedures completed include lumbar RFA Patient is currently on [place] 10/, Celebrex. Patient denies any side effects of the medication(s), denies excessive drowsiness or sleepiness, denies suicidal ideation and reports that the current pain medication is helping to control the pain and improve activities of daily living. Patient denies any motor or sensory deficits. Patient denies any fever or night sweats, denies any change in the bowel movements or urination. Physical Examination: -Constitutional: Cooperative. Not in acute distress . -HEENT: Neck is supple. No lymphadenopathy. No thyromegaly. Normal thyroid size. Eyes: No ptosis , no icterus, no photophobia. ENT: No auditory deficits. Normal oropharynx. No Thrush. - Respiratory: Chest clear to auscultations bilaterally. No wheezing. No rhonchi. - Cardiovascular: Regular rate and rhythm. S1 / S2 , no S3 , no S4. - Gastrointestinal: Abdomen soft no tenderness. Bowel sounds positive in all four quadrants. No organomegaly. - Genitourinary: Deferred. - Neurologic: Cranial nerve II to XII intact. No focal neurological deficits. - Psychatric: Alert & oriented x 3. Matching mood & appropriate affect. Judgment and insight intact. - Lymphatic: No Lymphadenopathy. - Musculoskeletal: Cervical spine: Muscle bulk/ tone/ strength in the bilateral upper extremities normal. Spurling test positive Distraction test positive Facet loading test cervical area positive over the right Lumbar spine: Motor bulk/ tone/ strength lower extremities , thigh and legs : 5/5 Deep tendon reflexes : Normal Knee Jerk. Normal Ankle Jerk . Vertebral body tenderness to palpation over Lumbar Facet Loading Test positive Straight Leg Raise: positive at 30 degrees right side/ left side Gaenslen's Test positive Sacral spine : Severe tenderness over the Sacroiliac joint: right side / left side Range of motion: Flexion of the lumbar spine <60 degrees Range of motion: Extension of the lumbar spine <20 degrees Gaenslen's Test positive Vannesa test: positive right side / left side Assessment and plan: Chronic neck & R shoulder pain secondary to cervical degenerative disc disease with facet arthropathy without myelopathy MRIs without contrast ordered for the cervical spine in the right shoulder as there are none on file. Patient is to follow-up with us within 4 weeks for a plan of care. All patient questions answered MAPS reviewed and it was appropriate. I have spent 31 minutes on patient care today. Dr Sidhu was available by phone for the evaluation of this patient. The time was used to review the medical records including relevant urine studies and Prescription history (MAPs), review of the available imaging, evaluation and examination of the patient, coordination of care with the medical staff and if applicable referring physicians, as well as creation of the medical record PQRS Measure Charge Sheet PQRS Narrative: Smoking Status Current every day smoker Narcotic Agreement Date Signed 02/01/18 Hx Alcohol Use (MH) Yes: social Home Medications: Ambulatory Orders Albuterol Inhaler (Mhu) [Ventolin Inhaler] 2 puff INHALATION Q4HR PRN 04/26/14 Albuterol Nebulized [Ventolin Nebulized] 2.5 mg INHALATION QID PRN 04/26/14 Beclomethasone Dipropionate [Qvar 80 mcg/puff] 2 puff INHALATION BID PRN 04/26/14 Gabapentin [Neurontin] 400 mg PO TID #90 cap 10/01/16 lamoTRIgine [LaMICtal] 200 mg PO BID 01/26/17 HYDROcodone/APAP 10-325MG [[place] 10-325] 1 tab PO Q6H PRN #30 tab 02/01/18 Cyclobenzaprine [Flexeril] 10 mg PO BID PRN 12/08/18 Naproxen [Naprosyn] 500 mg PO Q12HR 01/14/19 Omeprazole [PriLOSEC] 20 mg PO BID 03/10/19 ARIPiprazole [Abilify] 15 mg PO DAILY 04/20/20 Sertraline [Zoloft] 50 mg PO DAILY 04/20/20 Prednisone Unkown 07/22/21
[2022-01-02 08:35] VITALS: BP 119/77; PULSE 75; RESP 18; TEMP 98.2
== END ==
LOC: PNWHC3 07:28
PROVIDERS: ATTEND Specialist
DX: M50.30 Other cervical disc degeneration, unspecified cervical region (principal); M47.812 Spondylosis without myelopathy or radiculopathy, cervical region; G89.29 Other chronic pain; F17.200 Nicotine dependence, unspecified, uncomplicated; Z91.030 Bee allergy status; Z91.038 Other insect allergy status
CPT/HCPCS: 99211

== ENCOUNTER → 2022-03-11 | Day surgery (SDC) | payer BC ==
[~2022-03-11] MED LIST changes: +FAMOTIDINE 20 MG/2 ML VIAL IVP ONE; -IV FLUID CONTINUATION 1,000 ML IV ONE; +LACTATED RINGERS 1,000 ML IV ONE; +LIDOCAINE 1% (10MG/ML) FOR IV START INTRADERMA PRN; -LIDOCAINE 1% INJ 10MG/ML (20 ML MDV) ONE; +LIDOCAINE 2% INJ 20 MG/ML (2 ML VIAL) ONE; -LIDOCAINE 4% (PF) 5 ML AMP ONE; -MIDAZOLAM 2 MG/2 ML VIAL ONE; +ONDANSETRON 4 MG/2 ML VIAL ONE; +PROPOFOL 10 MG/ML 20 ML VIAL IV ONE; -ROPIVACAINE 5MG/ML 20ML VIAL ONE; -fentaNYL (PF) 50 MCG/ML 2 ML AMP ONE
[2022-03-11 10:56] VITALS: TEMP 97.3
--- NOTE | 2022-03-11 11:59 | P.GSHP ---
History of Present Illness H&P Date: 03/11/22 Chief Complaint: GERD 31-year-old male here today for upper endoscopy. Patient states he is here because he has been coughing up blood and has chronic reflux. History of H. pylori as an . He has not seen pulmonary. No dysphagia. Past Medical History Past Medical History: Asthma, GERD/Reflux, Musculoskeletal Disorder Additional Past Medical History / Comment(s): HERNIATED DISCS, back pain radiates marissa legs, recent abd. pain, colitis History of Any Multi-Drug Resistant Organisms: None Reported Past Surgical History: Cholecystectomy Additional Past Surgical History / Comment(s): myringotomy & tubes, epidural pain procedures Past Anesthesia/Blood Transfusion Reactions: No Reported Reaction, Motion Sickness Additional Past Anesthesia/Blood Transfusion Reaction / Comment(s): says tends to need alot of anesthesia to be put out Smoking Status: Former smoker, Vaper - Past Family History Mother Family Medical History: No Reported History Son(s) Family Medical History: Cancer Father Family Medical History: Deep Vein Thrombosis (DVT) Medications and Allergies Home Medications Medication Instructions Recorded Confirmed Type Albuterol Nebulized [Ventolin 2.5 mg INHALATION QID PRN 04/26/14 03/11/22 History Nebulized] Beclomethasone Dipropionate [Qvar 2 puff INHALATION BID PRN 04/26/14 03/11/22 History 80 mcg/puff] Gabapentin [Neurontin] 400 mg PO TID #90 cap 10/01/16 03/11/22 Rx lamoTRIgine [LaMICtal] 200 mg PO BID 01/26/17 03/11/22 History HYDROcodone/APAP 10-325MG [[place] 1 tab PO Q6H PRN #30 tab 02/01/18 03/11/22 Rx 10-325] Cyclobenzaprine [Flexeril] 10 mg PO BID PRN 12/08/18 03/11/22 History Omeprazole [PriLOSEC] 20 mg PO BID 03/10/19 03/11/22 History ARIPiprazole [Abilify] 15 mg PO DAILY 04/20/20 03/11/22 History Sertraline [Zoloft] 50 mg PO DAILY 04/20/20 03/11/22 History Celecoxib [CeleBREX] 50 mg PO 03/11/22 History Allergies Allergy/AdvReac Type Severity Reaction Status Date / Time venom-honey bee Allergy extensive Verified 03/11/22 10:44 [bee venom (honey bee)] burning and itching mosquito bites Allergy Swelling Uncoded 03/11/22 10:44 Surgical - Exam Vital Signs Temp Pulse Resp BP Pulse Ox 97.3 F L 70 16 113/61 98 03/11/22 10:56 03/11/22 10:56 03/11/22 10:56 03/11/22 10:56 03/11/22 10:56 Physical exam: General: Well-developed, well-nourished HEENT: Normocephalic, sclerae nonicteric Abdomen: Nontender, nondistended Extremities: No edema Neuro: Alert and oriented Assessment and Plan (1) GERD (gastroesophageal reflux disease) Narrative/Plan: Will proceed with upper endoscopy Current Visit: Yes Status: Acute Code(s): K21.9 - GASTRO-ESOPHAGEAL REFLUX DISEASE WITHOUT ESOPHAGITIS SNOMED Code(s): 661452547
--- NOTE | 2022-03-11 12:06 | P.PCN ---
Date of Procedure: 03/11/22 Procedure(s) Performed: Preoperative Dx: GERD Postoperative Dx: Mild gastritis, small hiatal hernia Procedure: EGD with Bx Anesthesia: Sedation Endoscopist: Dr. Crowell Specimens: Antrum Endoscopic Procedure: The patient was on the endoscopy table in the left decubitus position. The Olympus gastroscope was inserted into the oropharynx and passed under direct visualization to the region of the third portion of the duodenum. From that point the scope was slowly withdrawn inspecting all surfaces carefully. There were no neoplastic inflammatory or polypoid lesions throughout the duodenum. The pylorus was widely patent. The stomach was carefully inspected. There was mild gastritis present. A biopsy of the antrum took place to rule out H. pylori. Retroflexion revealed a small and sed rate are hiatal hernia. The esophagus was then carefully examined. There were no neoplastic inflammatory or polypoid lesions throughout the visualized esophagus. The patient was then taken to the recovery room in stable condition per anesthesia guidelines. Recommendations: Continue antiacid therapy. Continue workup for patient's complaints of hemoptysis. Await biopsy results.
[2022-03-11 12:58] VITALS: BP 119/65; PULSE 65; RESP 18
== END ==
LOC: ORWHC2ENDO 10:32
PROVIDERS: ATTEND Surgery
DX: K29.50 Unspecified chronic gastritis without bleeding (principal); K44.9 Diaphragmatic hernia without obstruction or gangrene; K21.00 Gastro-esophageal reflux disease with esophagitis, without bleeding; J45.909 Unspecified asthma, uncomplicated; Z79.1 Long term (current) use of non-steroidal anti-inflammatories (NSAID); Z87.891 Personal history of nicotine dependence; Z90.49 Acquired absence of other specified parts of digestive tract; Z91.030 Bee allergy status
CPT/HCPCS: 43239; 88305; J2405; J2704; J2001

== ENCOUNTER 2022-03-14 17:13 | Emergency (ER) | payer BC ==
[2022-03-14 17:34] VITALS: BP 125/76; PULSE 88; RESP 20; TEMP 97.6
--- NOTE | 2022-03-14 18:18 | ED ---
General Adult HPI - General Chief complaint: Upper Respiratory Infection Stated complaint: hemoptysis Time Seen by Provider: 03/14/22 18:04 Source: patient, RN notes reviewed, old records reviewed Mode of arrival: ambulatory Limitations: no limitations - History of Present Illness Initial comments: This is a well-appearing 31-year-old male that presents to the emergency room with complaints of coughing up blood for one month. Patient states that he has seen his PCP and was referred to surgery. He had a recent stomach biopsy on March 11. He states that he was taking Naprosyn daily for chronic back pain and the doctor took him off and put him on Celexa related to his hemoptysis. He was supposed to follow up with Dr. Crowell but has not because he states he does not have a phone. He states he did have one episode of coughing up blood again today which is why he came to ER. He denies any other abnormal bleeding. He has been taking omeprazole twice a day as directed. Patient does have a history of asthma, GERD, colitis. He smokes "a lot of weed" and vapes. -: month(s) (1) Severity scale (1-10): 0 Associated Symptoms: cough (hempotysis) Treatments Prior to Arrival: other (Omeprazole) - Related Data Home Medications Medication Instructions Recorded Confirmed Albuterol Nebulized [Ventolin 2.5 mg INHALATION QID PRN 04/26/14 03/11/22 Nebulized] Beclomethasone Dipropionate [Qvar 2 puff INHALATION BID PRN 04/26/14 03/11/22 80 mcg/puff] lamoTRIgine [LaMICtal] 200 mg PO BID 01/26/17 03/11/22 Cyclobenzaprine [Flexeril] 10 mg PO BID PRN 12/08/18 03/11/22 Omeprazole [PriLOSEC] 20 mg PO BID 03/10/19 03/11/22 ARIPiprazole [Abilify] 15 mg PO DAILY 04/20/20 03/11/22 Sertraline [Zoloft] 50 mg PO DAILY 04/20/20 03/11/22 Celecoxib [CeleBREX] 50 mg PO 03/11/22 Previous Rx's Medication Instructions Recorded Gabapentin [Neurontin] 400 mg PO TID #90 cap 12/21/16 HYDROcodone/APAP 10-325MG [[place] 1 tab PO Q6H PRN #30 tab 02/01/18 10-325] Allergies Allergy/AdvReac Type Severity Reaction Status Date / Time venom-honey bee Allergy extensive Verified 03/14/22 17:34 [bee venom (honey bee)] burning and itching mosquito bites Allergy Swelling Uncoded 03/14/22 17:34 Review of Systems ROS Statement: Those systems with pertinent positive or pertinent negative responses have been documented in the HPI. ROS Other: All systems not noted in ROS Statement are negative. Past Medical History Past Medical History: Asthma, GERD/Reflux, Musculoskeletal Disorder Additional Past Medical History / Comment(s): HERNIATED DISCS, back pain radiates marissa legs, recent abd. pain, colitis History of Any Multi-Drug Resistant Organisms: None Reported Past Surgical History: Cholecystectomy Additional Past Surgical History / Comment(s): myringotomy & tubes, epidural pain procedures Past Anesthesia/Blood Transfusion Reactions: No Reported Reaction, Motion Sickness Additional Past Anesthesia/Blood Transfusion Reaction / Comment(s): says tends to need alot of anesthesia to be put out Past Psychological History: ADD/ADHD, Bipolar, Depression Smoking Status: Former smoker, Vaper - Past Family History Mother Family Medical History: No Reported History Son(s) Family Medical History: Cancer Father Family Medical History: Deep Vein Thrombosis (DVT) General Exam Limitations: no limitations General appearance: alert, in no apparent distress Eye exam: Present: normal appearance. Absent: scleral icterus, conjunctival injection ENT exam: Present: normal oropharynx, mucous membranes moist Expanded Mouth exam: Present: tongue normal, tongue elevation. Absent: drooling, trismus, muffled voice Throat exam: tonsillomegaly Neck exam: Present: full ROM. Absent: tenderness, meningismus Respiratory exam: Present: normal lung sounds bilaterally. Absent: respiratory distress, accessory muscle use Cardiovascular Exam: Present: regular rate, normal rhythm GI/Abdominal exam: Present: soft. Absent: distended Back exam: Absent: tenderness, CVA tenderness (R), CVA tenderness (L) Neurological exam: Present: alert, oriented X3, normal gait Psychiatric exam: Present: normal affect, normal mood Skin exam: Present: warm, dry, normal color. Absent: cyanosis, diaphoretic, petechiae, pallor Course Vital Signs 03/14/22 17:28 Temperature 97.6 F Pulse Rate 88 Respiratory 20 Rate Blood Pressure 125/76 O2 Sat by Pulse 97 Oximetry Medical Decision Making - Medical Decision Making Patient presents with 1 month of hemoptysis. His primary care doctor has been seeing him for same and did draw blood recently. She did refer him to Dr Crowell and he had a stomach biopsy performed March 11. He states that he had one episode of hemoptysis again today. He has been taking omeprazole as prescribed and taking Celexa and not NSAIDs. He denies any other active bleeding. He denies any chest pain or difficulty in breathing, no shortness of breath. Vital signs are stable. On exam his abdomen is soft and nontender. He has had no hemoptysis while in the emergency room. Lung sounds are clear to He was offered labs and declinesd. Chest x-ray shows no consolidation or mass. He was instructed to follow-up with his primary care doctor and return to the emergency room with any new or concerning symptoms including difficulty breathing, chest pain, or worsening symptoms. Patient is agreeable to this plan of care Case discussed with Dr. Pickering. Disposition Clinical Impression: Cough Disposition: HOME SELF-CARE Condition: Good Instructions (If sedation given, give patient instructions): Coughing Up Blood (Hemoptysis) (ED) Additional Instructions: Follow-up with the primary care doctor and Dr. Crowell for continued hemoptysis. Return to the emergency room with any new or concerning symptoms including weakness, shortness of breath, difficulty in breathing or other abnormal bleeding. Stop smoking marijuana and vaping. Avoid aspirin, Motrin and Advil. Continue taking omeprazole as prescribed. Is patient prescribed a controlled substance at d/c from ED?: No Referrals: Mery Isaac PAC [Primary Care Provider] - 1-2 days Gordo Crowell MD [Medical Doctor] - 1-2 days Time of Disposition: 19:08
--- NOTE | 2022-03-14 18:54 | XR ---
EXAMINATION TYPE: XR chest 2V DATE OF EXAM: 03/14/2022 6:35 PM COMPARISON: 11/11/2017 TECHNIQUE: XR chest 2V Frontal and lateral views of the chest. CLINICAL INDICATION:Male, 31 years old with history of hemoptysis; FINDINGS: Lungs/Pleura: No evidence for mass. There is no evidence of pleural effusion, focal consolidation, or pneumothorax. Pulmonary vascularity: Unremarkable. Heart/mediastinum: Cardiomediastinal silhouette is unremarkable. Musculoskeletal: No acute osseous pathology. IMPRESSION: No definitive evidence for airspace consolidation or mass.
== END 2022-03-14 19:18 | disposition home or self-care (01) ==
LOC: EC 17:13
DX: R05.9 Cough, unspecified (principal); J45.909 Unspecified asthma, uncomplicated; K21.9 Gastro-esophageal reflux disease without esophagitis; Z87.891 Personal history of nicotine dependence; Z91.030 Bee allergy status; Z91.038 Other insect allergy status; Z79.899 Other long term (current) drug therapy
CPT/HCPCS: 71046; 99283

== ENCOUNTER → 2022-04-01 | Outpatient (CLI) | payer BC ==
--- NOTE | 2022-04-01 09:13 | CT ---
EXAMINATION TYPE: CT chest w con DATE OF EXAM: 04/01/2022 COMPARISON: No previous CT scan is available for comparison. HISTORY: hemoptysis CT DLP: 462.5 mGycm Automated exposure control for dose reduction was used. TECHNIQUE: CT scan of the chest is performed with IV Contrast, patient injected with 100 mL of Isovue 300. FINDINGS: LUNGS: The lungs are grossly clear, there is no concerning parenchymal mass or nodule identified. T here is no pleural effusion or pneumothorax seen. The tracheobronchial tree is patent. MEDIASTINUM: Scattered subcentimeter bilateral hilar and mediastinal lymph nodes. No pathologically e nlarged lymph nodes in the chest. No cardiomegaly. No pericardial effusion. Patent major mediastinal vessels. OTHER: Minimal gynecomastia changes. Tiny calcification within the left thyroid lobe. Questionable l eft renal 3 mm nonobstructing calculus. Mild degenerative changes of the thoracic spine. IMPRESSION: No significant pulmonary abnormality identified. Incidental findings as described above.
== END | disposition home or self-care (01) ==
LOC: RADCTMAIN 07:53
PROVIDERS: ATTEND Family Medicine
DX: E04.9 Nontoxic goiter, unspecified (principal); M47.812 Spondylosis without myelopathy or radiculopathy, cervical region
CPT/HCPCS: 71260; Q9967

== ENCOUNTER → 2022-04-10 | Outpatient (CLI) | payer BC ==
[2022-04-10 12:03] VITALS: BP 127/83; PULSE 74; RESP 18; TEMP 98
--- NOTE | 2022-04-10 14:52 | P.PAINPG ---
PQRS Measure Charge Sheet Comment: A 31 yr old male with a history of severe and chronic neck pain secondary to cervical degenerative disc diseases and spondylosis with facet arthropathy presents today for an evaluation. MRI of the cervical spine not completed yet. Pain level is 5/10 in intensity, R side of the cervical spine with radiation of pain down the RUE, burning and numbness to fingers. Pain is provoked by overhead reaching, hyperextension of the neck. Pain is alleviated with PT for the last 3 weeks currently integrated w massage, heat, laying supine, repositioning and rest. Patient is currently on DENIES Patient denies any side effects of the medication(s), denies excessive drowsiness or sleepiness, denies suicidal ideation and reports that the current pain medication is helping to control the pain and improve activities of daily living. Patient denies any motor or sensory deficits. Patient denies any fever or night sweats, denies any change in the bowel movements or urination. Physical Examination: -Constitutional: Cooperative. Not in acute distress . - Neurologic: Cranial nerve II to XII intact. No focal neurological deficits. - Psychatric: Alert & oriented x 3. Matching mood & appropriate affect. Judgment and insight intact. - Musculoskeletal: Cervical spine: Muscle bulk/ tone/ strength in the bilateral upper extremities normal Vertebral body tenderness to palpation over C4, C5, C6, C7 Spurling test positive Distraction test positive Facet loading test positive Thoracic spine Muscle bulk / tone/ strength in the bilateral paraspinal muscles normal Vertebral body tender to palpation over Facet loading test positive Lumbar spine: Motor bulk/ tone/ strength lower extremities , thigh and legs : 5/5 Deep tendon reflexes : Normal Knee Jerk. Normal Ankle Jerk . Vertebral body tenderness to palpation over Lumbar Facet Loading Test positive Straight Leg Raise: positive at 30 degrees right side/ left side Gaenslen's Test positive Sacral spine : Severe tenderness over the Sacroiliac joint: right side / left side Range of motion: Flexion of the lumbar spine <60 degrees Range of motion: Extension of the lumbar spine <20 degrees Gaenslen's Test positive Gerry's Test positive Vannesa test: positive right side / left side Thigh Thrust Test Sacral Thrust Test Assessment and plan: Chronic neck pain secondary to degenerative disc disease , spondylosis with facet arthropathy without myelopathy Recommendation to continue PT, as long as benefits outweigh the pain he experiences. MRI without contrast of the cervical spine M50.30 re issued. May return to our clinic within 4 wks for a re evaluation. Risks, benefits of procedure discussed and pt verbalized understanding. Denies anticoagulant use or medical history of diabetes. All patient questions answered MAPS reviewed and it was appropriate. I have spent less than 30 minutes on patient care today. Dr Sidhu was available by phone for the evaluation of this patient. The time was used to review the medical records including relevant urine studies and Prescription history (MAPs), review of the available imaging, evaluation and examination of the patient, coordination of care with the medical staff and if applicable referring physicians, as well as creation of the medical record PQRS Narrative: Smoking Status Current every day smoker Narcotic Agreement Date Signed 02/01/18 Hx Alcohol Use (MH) Yes: social Home Medications: Ambulatory Orders Albuterol Nebulized [Ventolin Nebulized] 2.5 mg INHALATION QID PRN 04/26/14 Beclomethasone Dipropionate [Qvar 80 mcg/puff] 2 puff INHALATION BID PRN 04/26/14 Gabapentin [Neurontin] 400 mg PO TID #90 cap 10/01/16 lamoTRIgine [LaMICtal] 200 mg PO BID 01/26/17 HYDROcodone/APAP 10-325MG [[place] 10-325] 1 tab PO Q6H PRN #30 tab 02/01/18 Cyclobenzaprine [Flexeril] 10 mg PO BID PRN 12/08/18 Omeprazole [PriLOSEC] 20 mg PO BID 03/10/19 ARIPiprazole [Abilify] 15 mg PO DAILY 04/20/20 Sertraline [Zoloft] 50 mg PO DAILY 04/20/20 Celecoxib [CeleBREX] 50 mg PO 03/11/22 Controlled Substance Measures - Controlled Substance Measures Is patient prescribed a controlled substance at discharge?: No
== END ==
LOC: PNWHC3 10:30
PROVIDERS: ATTEND Specialist
DX: M50.30 Other cervical disc degeneration, unspecified cervical region (principal); M47.812 Spondylosis without myelopathy or radiculopathy, cervical region; G89.29 Other chronic pain; F17.200 Nicotine dependence, unspecified, uncomplicated; Z91.030 Bee allergy status; Z91.038 Other insect allergy status
CPT/HCPCS: 99211

== ENCOUNTER → 2022-04-22 | Outpatient (CLI) | payer BC ==
--- NOTE | 2022-04-22 16:41 | XR ---
Cervical spine HISTORY: M 50.30 3 views of the cervical spine, correlation prior exam 07/15/2021 Cervical vertebral bodies show preserved height, alignment, and bone mineralization. Disc spaces are reduced at C3-4, C5-6, spondylosis has developed in the interval at C6-7 with some loss of disc heigh t. Prevertebral soft tissues are normal. IMPRESSION: Degenerative disc disease.
== END | disposition home or self-care (01) ==
LOC: RADXRMAIN 15:18
PROVIDERS: ATTEND Physician Assistant Medical
DX: M50.322 Other cervical disc degeneration at C5-C6 level (principal); M47.812 Spondylosis without myelopathy or radiculopathy, cervical region
CPT/HCPCS: 72040

== ENCOUNTER → 2022-05-01 | Outpatient (CLI) | payer BC ==
[2022-05-01 12:56] VITALS: BP 137/80; PULSE 70; RESP 18; TEMP 99.1
--- NOTE | 2022-05-01 12:57 | P.PAINPG ---
PQRS Measure Charge Sheet Comment: A 31 yr old male with a history of severe and chronic neck pain secondary to degenerative disc diseases and spondylosis with facet arthropathy presents today for evaluation of cervical pain and x-ray results. States he needs to complete his 6wk of PT until he can get an MRI of his cervical spine. Pain level is currently at 4/10 in intensity, constant, dull/ achy in the lower aspect of his cervical spine w shooting towards the RUE. Pain is provoked as high as 8/10 by standing/sitting or any position where his RUE is vertical. Pain is alleviated with PT of which he is currently in but only helps his ROM, medications, topicals, home stretching regimen, heat, repositioning and rest. Patient is currently on [place], Neurontin QID Patient denies any side effects of the medication(s), denies excessive drowsiness or sleepiness, denies suicidal ideation and reports that the current pain medication is helping to control the pain and improve activities of daily living. Patient denies any motor or sensory deficits. Patient denies any fever or night sweats, denies any change in the bowel movements or urination. Physical Examination: -Constitutional: Cooperative. Not in acute distress . - Neurologic: Cranial nerve II to XII intact. No focal neurological deficits. - Psychatric: Alert & oriented x 3. Matching mood & appropriate affect. Judgment and insight intact. - Musculoskeletal: Cervical spine: Muscle bulk/ tone/ strength in the bilateral upper extremities normal Vertebral body tenderness to palpation over C4, C5, C6 Spurling test positive Distraction test positive Facet loading test positive Thoracic spine Muscle bulk / tone/ strength in the bilateral paraspinal muscles normal Vertebral body tender to palpation over Facet loading test positive Lumbar spine: Motor bulk/ tone/ strength lower extremities , thigh and legs : 5/5 Deep tendon reflexes : Normal Knee Jerk. Normal Ankle Jerk . Vertebral body tenderness to palpation over Lumbar Facet Loading Test positive Straight Leg Raise: positive at 30 degrees right side/ left side Gaenslen's Test positive Sacral spine : Severe tenderness over the Sacroiliac joint: right side / left side Range of motion: Flexion of the lumbar spine <60 degrees Range of motion: Extension of the lumbar spine <20 degrees Gaenslen's Test positive Gerry's Test positive Vannesa test: positive right side / left side Thigh Thrust Test Sacral Thrust Test Imaging: Cervical spine x ray from 04/10/22 reviewed Assessment and plan: Chronic neck pain secondary to degenerative disc disease , spondylosis with facet arthropathy without myelopathy Recommendation of completion of PT, then follow through with MRI imaging. He may return to our clinic in 2-4 weeks for a re evaluation. Risks, benefits of procedure discussed and pt verbalized understanding. Denies anticoagulant use or medical history of diabetes. All patient questions answered MAPS reviewed and it was appropriate. I have spent less than 30 minutes on patient care today. Dr Sidhu was available by phone for the evaluation of this patient. The time was used to review the medical records including relevant urine studies and Prescription history (MAPs), review of the available imaging, evaluation and examination of t he patient, coordination of care with the medical staff and if applicable referring physicians, as well as creation of the medical record PQRS Narrative: Smoking Status Current every day smoker Narcotic Agreement Date Signed 02/01/18 Hx Alcohol Use (MH) Yes: social Home Medications: Ambulatory Orders Albuterol Nebulized [Ventolin Nebulized] 2.5 mg INHALATION QID PRN 04/26/14 Beclomethasone Dipropionate [Qvar 80 mcg/puff] 2 puff INHALATION BID PRN 04/26/14 Gabapentin [Neurontin] 400 mg PO TID #90 cap 10/01/16 lamoTRIgine [LaMICtal] 200 mg PO BID 01/26/17 HYDROcodone/APAP 10-325MG [[place] 10-325] 1 tab PO Q6H PRN #30 tab 02/01/18 Cyclobenzaprine [Flexeril] 10 mg PO BID PRN 12/08/18 Omeprazole [PriLOSEC] 20 mg PO BID 03/10/19 ARIPiprazole [Abilify] 15 mg PO DAILY 04/20/20 Sertraline [Zoloft] 50 mg PO DAILY 04/20/20 Celecoxib [CeleBREX] 50 mg PO 03/11/22 Controlled Substance Measures - Controlled Substance Measures Is patient prescribed a controlled substance at discharge?: No
== END ==
LOC: PNWHC3 12:30
PROVIDERS: ATTEND Specialist
DX: M50.30 Other cervical disc degeneration, unspecified cervical region (principal); G89.29 Other chronic pain; M47.812 Spondylosis without myelopathy or radiculopathy, cervical region; F17.200 Nicotine dependence, unspecified, uncomplicated; Z91.030 Bee allergy status; Z91.038 Other insect allergy status
CPT/HCPCS: 99211

== ENCOUNTER → 2022-05-16 | Outpatient (CLI) | payer BC ==
--- NOTE | 2022-05-17 05:26 | MR ---
EXAMINATION TYPE: MR cervical spine wo con DATE OF EXAM: 05/16/2022 COMPARISON: None HISTORY: Neck pain and numbness in right arm and fingers. Multiplanar multi echo imaging of the cervical spine with no contrast. The cervical vertebra show fairly normal alignment. There is large posterior disc herniation at C6-7 in the spinal canal. This extends to the right side more than the left. The spinal canal measures 6 m m at the narrowest point. There is small posterior disc bulging at C2-3 and C3-4 and C4-5 without any significant impingement on the spinal canal. The cervical spinal cord shows no edema. There is some effacement of the cord on the right side due to the disc herniation at C6-7. There is also posterior C5-6 disc herniation on the right side. There is extruded disc fragment along the posterior aspect of the C6 vertebral body on the right side. This probably also sequestered fragment extending along the posterior right side C5 vertebral body. The posterior elements are intact. Brainstem is intact. No evidence of a fracture. Facet joints are intact. IMPRESSION: Large posterior right-sided C6-7 cervical disc herniation with extruded fragment extending along the posterior aspect of L5 and C6 vertebral bodies on the right side. There is C5-6 and C6-7 right-sided neural foraminal impingement.
== END | disposition home or self-care (01) ==
LOC: RADMRIMAIN 18:50
PROVIDERS: ATTEND Physician Assistant Medical
DX: M50.323 Other cervical disc degeneration at C6-C7 level (principal); M99.71 Connective tissue and disc stenosis of intervertebral foramina of cervical region
CPT/HCPCS: 72141

== ENCOUNTER → 2022-05-21 | Outpatient (CLI) | payer BC ==
[2022-05-21 13:12] VITALS: BP 133/74; PULSE 68; RESP 18
--- NOTE | 2022-05-21 15:28 | P.PAINPG ---
PQRS Measure Charge Sheet Comment: A 31 yr old male with a history of severe and chronic neck pain secondary to degenerative disc diseases and spondylosis with facet arthropathy presents today for evaluation. Pain level is currently at 9/10 in intensity, localized in the R cervical spine, sore & achy in character, w radiation of pain towards the R shoulder & RUE. Pain is provoked by sitting/standing for periods of 30 min or more. Pain is alleviated with PT for 6 weeks completed in April 2022, massage integrated with PT, heat, home exercise regimen, medications ([place], Celebrex, Neurontin, Flexeril), repositioning and rest. Interventional pain procedures completed include LESIs, BL RFA L3-L5. Patient is currently on [place], Celebrex, Neurontin, Flexeril Patient denies any side effects of the medication(s), denies excessive drowsiness or sleepiness, denies suicidal ideation and reports that the current pain medication is helping to control the pain and improve activities of daily living. Patient denies any motor or sensory deficits. Patient denies any fever or night sweats, denies any change in the bowel movements or urination. Physical Examination: -Constitutional: Cooperative. Not in acute distress . - Neurologic: Cranial nerve II to XII intact. No focal neurological deficits. - Psychatric: Alert & oriented x 3. Matching mood & appropriate affect. Judgment and insight intact. - Musculoskeletal: Cervical spine: Muscle bulk/ tone/ strength in the bilateral upper extremities normal Vertebral body tenderness to palpation over C6, C7 Spurling test positive Distraction test positive Facet loading test positive Thoracic spine Muscle bulk / tone/ strength in the bilateral paraspinal muscles normal Vertebral body tender to palpation over Facet loading test positive Lumbar spine: Motor bulk/ tone/ strength lower extremities , thigh and legs : 5/5 Deep tendon reflexes : Normal Knee Jerk. Normal Ankle Jerk . Vertebral body tenderness to palpation over Lumbar Facet Loading Test positive Straight Leg Raise: positive at 30 degrees right side/ left side Gaenslen's Test positive Sacral spine : Severe tenderness over the Sacroiliac joint: right side / left side Range of motion: Flexion of the lumbar spine <60 degrees Range of motion: Extension of the lumbar spine <20 degrees Gaenslen's Test positive Gerry's Test positive Vannesa test: positive right side / left side Thigh Thrust Test Sacral Thrust Test Assessment and plan: Chronic neck pain secondary to cervical degenerative disc disease , spondylosis with facet arthropathy without myelopathy Recommendation of R paramedian EVANS C6-C7. May need a series of injections, up to 4 within a 12 mo period, for optimal pain relief. Pt has undergone PT for the last 6 weeks and still feels neck pain , though his ROM and strength has improved. He will return to work on a "trial basis" and will have his PCP fill out FMLA forms if he develops flare ups and needs time off from work. Risks, benefits of procedure discussed and pt verbalized understanding. Denies anticoagulant use or medical history of diabetes. All patient questions answered MAPS reviewed and it was appropriate. I have spent less than 30 minutes on patient care today. Dr Sidhu was available by phone for the evaluation of this patient. The time was used to review the medical records including relevant urine studies and Prescription history (MAPs), review of the available imaging, evaluation and examination of the patient, coordination of care with the medical staff and if applicable referring physicians, as well as creation of the medical record PQRS Narrative: Smoking Status Current every day smoker Narcotic Agreement Date Signed 02/01/18 Hx Alcohol Use (MH) Yes: social Home Medications: Ambulatory Orders Albuterol Nebulized [Ventolin Nebulized] 2.5 mg INHALATION QID PRN 04/26/14 Beclomethasone Dipropionate [Qvar 80 mcg/puff] 2 puff INHALATION BID PRN 04/26/14 lamoTRIgine [LaMICtal] 200 mg PO BID 01/26/17 HYDROcodone/APAP 10-325MG [[place] 10-325] 1 tab PO Q6H PRN #30 tab 02/01/18 Cyclobenzaprine [Flexeril] 10 mg PO BID PRN 12/08/18 Omeprazole [PriLOSEC] 20 mg PO BID 03/10/19 ARIPiprazole [Abilify] 15 mg PO DAILY 04/20/20 Sertraline [Zoloft] 50 mg PO DAILY 04/20/20 Celecoxib [CeleBREX] 50 mg PO DAILY 03/11/22 Gabapentin [Neurontin] 800 mg PO TID 05/01/22 Controlled Substance Measures - Controlled Substance Measures Is patient prescribed a controlled substance at discharge?: No
== END ==
LOC: PNWHC3 12:51
PROVIDERS: ATTEND Specialist
DX: G89.29 Other chronic pain (principal); M50.30 Other cervical disc degeneration, unspecified cervical region; M47.812 Spondylosis without myelopathy or radiculopathy, cervical region; F17.200 Nicotine dependence, unspecified, uncomplicated; Z91.030 Bee allergy status; Z91.09 Other allergy status, other than to drugs and biological substances
CPT/HCPCS: 99211

== ENCOUNTER 2022-05-29 17:41 | Emergency (ER) | payer BC, OTHER ==
[2022-05-29 17:47] VITALS: BP 136/89; PULSE 77; RESP 18; TEMP 98.6
--- NOTE | 2022-05-29 19:01 | XR ---
PROCEDURE: XR hand complete LT - 3V DATE AND TIME: 05/29/2022 6:39 PM CLINICAL INDICATION: Pain; injury TECHNIQUE: Department protocol COMPARISON: None FINDINGS: There is a complex comminuted fracture of the proximal phalanx of the left thumb, involving both its MCP and IP articulations. No other definite fractures. IMPRESSION: Left thumb fracture.
[2022-05-29] MEDS ORDERED: MORPHINE SULFATE 4 MG/ML SYRINGE IM ONE (19:21)
--- NOTE | 2022-05-29 19:38 | ED ---
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 Patient states he smashed his thumb. Reports significant pain over the thumb. Denies numbness and tingling. Denies other injury. Patient has pain contracts for low back pain. - Related Data Home Medications Medication Instructions Recorded Confirmed Albuterol Nebulized [Ventolin 2.5 mg INHALATION QID PRN 04/26/14 05/21/22 Nebulized] Beclomethasone Dipropionate [Qvar 2 puff INHALATION BID PRN 04/26/14 05/21/22 80 mcg/puff] lamoTRIgine [LaMICtal] 200 mg PO BID 01/26/17 05/21/22 Cyclobenzaprine [Flexeril] 10 mg PO BID PRN 12/08/18 05/21/22 Omeprazole [PriLOSEC] 20 mg PO BID 03/10/19 05/21/22 ARIPiprazole [Abilify] 15 mg PO DAILY 04/20/20 05/21/22 Sertraline [Zoloft] 50 mg PO DAILY 04/20/20 05/21/22 Celecoxib [CeleBREX] 50 mg PO DAILY 03/11/22 05/21/22 Gabapentin [Neurontin] 800 mg PO TID 05/01/22 05/21/22 Previous Rx's Medication Instructions Recorded HYDROcodone/APAP 10-325MG [[place] 1 tab PO Q6H PRN #30 tab 02/01/18 10-325] HYDROcodone/APAP 10-325MG [[place] 1 tab PO Q4H PRN 3 Days #18 tab 05/29/22 10-325] Allergies Allergy/AdvReac Type Severity Reaction Status Date / Time venom-honey bee Allergy extensive Verified 05/29/22 17:44 [bee venom (honey bee)] burning and itching mosquito bites Allergy Swelling Uncoded 05/29/22 17:44 Review of Systems ROS Statement: Those systems with pertinent positive or pertinent negative responses have been documented in the HPI. ROS Other: All systems not noted in ROS Statement are negative. Past Medical History Past Medical History: Asthma, GERD/Reflux, Musculoskeletal Disorder Additional Past Medical History / Comment(s): HERNIATED DISCS, back pain radiates marissa legs, recent abd. pain, colitis History of Any Multi-Drug Resistant Organisms: None Reported Past Surgical History: Cholecystectomy Additional Past Surgical History / Comment(s): myringotomy & tubes, epidural pa in procedures Past Anesthesia/Blood Transfusion Reactions: No Reported Reaction, Motion Sickness Additional Past Anesthesia/Blood Transfusion Reaction / Comment(s): says tends to need alot of anesthesia to be put out Past Psychological History: ADD/ADHD, Bipolar, Depression Smoking Status: Former smoker, Vaper Past Alcohol Use History: None Reported Past Drug Use History: None Reported - Past Family History Mother Family Medical History: No Reported History Son(s) Family Medical History: Cancer Father Family Medical History: Deep Vein Thrombosis (DVT) General Exam Limitations: no limitations General appearance: alert, in no apparent distress Head exam: Present: atraumatic, normocephalic, normal inspection Respiratory exam: Present: normal lung sounds bilaterally. Absent: respiratory distress, wheezes, rales, rhonchi, stridor Cardiovascular Exam: Present: regular rate, normal rhythm, normal heart sounds. Absent: systolic murmur, diastolic murmur, rubs, gallop, clicks GI/Abdominal exam: Present: soft, normal bowel sounds. Absent: distended, tenderness, guarding, rebound, rigid Extremities exam: Present: other (Moderate swelling of left thumb. No erythema, laceration, or abrasion. Neurovascularly intact. Range of motion limited due to pain.) Neurological exam: Present: alert, oriented X3, CN II-XII intact Psychiatric exam: Present: normal affect, normal mood Skin exam: Present: warm, dry, intact, normal color. Absent: rash Course Vital Signs 05/29/22 17:44 Temperature 98.6 F Pulse Rate 77 Respiratory 18 Rate Blood Pressure 136/89 O2 Sat by Pulse 97 Oximetry Procedures - Orthopedic Splinting/Casting Injury #1 Upper Extremity Injury Location: finger (left thumb) Upper Extremity Immobilizer: thumb spica Medical Decision Making - Medical Decision Making This is a 31-year-old who presents after injury of his left thumb. Thorough history and examination were performed. There is moderate swelling of left thumb. No erythema, laceration, or abrasion. Neurovascularly intact. Range of motion limited due to pain. Pain control with morphine. Left hand x-ray reveals a complex comminuted fracture of the proximal phalanx of the left thumb, involving both of its MCP and IP articulations. Results discussed with patient. He was placed in a thumb spica splint. Neurovascularly intact on my reevaluation. Patient follow- up with offender employment specialist further evaluation and management. Upon discharge patient does ask for paper [place] prescription. States he is out of his [place]. States if he gives paper [place] prescription to his pain clinic they will be able to fill it without requiring him to make an appointment for the prescription. MAPS reviewed. Patient given prescription. RICE education provided in detail. Dr. Hutchins is my attending. Disposition Clinical Impression: Fracture of thumb, left, closed Disposition: HOME SELF-CARE Condition: Good Instructions (If sedation given, give patient instructions): Thumb Fracture (ED) Additional Instructions: Rest, ice, and elevate the left thumb as much as possible. Take [place] prescription to pain clinic to fill as we discussed. Follow-up with offender employment specialist first thing in the morning. Return to the emergency department if you experience new, concerning, or worsening symptoms. Prescriptions: HYDROcodone/APAP 10-325MG [[place] 10-325] 1 tab PO Q4H PRN 3 Days #18 tab PRN Reason: pain Is patient prescribed a controlled substance at d/c from ED?: No Referrals: Regina Martin MD [Primary Care Provider] - 1-2 days Jessenia Fitzgerald DO [Doctor of Osteopathic Medicine] - 1-2 days Time of Disposition: 19:38
== END 2022-05-29 20:19 | disposition home or self-care (01) ==
LOC: EC 17:41
DX: S62.502A Fracture of unspecified phalanx of left thumb, initial encounter for closed fracture (principal); J45.909 Unspecified asthma, uncomplicated; K21.9 Gastro-esophageal reflux disease without esophagitis; F41.9 Anxiety disorder, unspecified; F31.9 Bipolar disorder, unspecified; F17.290 Nicotine dependence, other tobacco product, uncomplicated; Z91.030 Bee allergy status; Z91.038 Other insect allergy status; Z79.51 Long term (current) use of inhaled steroids; W23.0XXA Caught, crushed, jammed, or pinched between moving objects, initial encounter
CPT/HCPCS: 73130; 99283; 96372; J2270; 96374; 99284

== ENCOUNTER 2022-06-26 06:21 | Day surgery (SDC) | payer BC ==
[2022-06-25 10:23] VITALS: BMI 35.2
[~2022-06-26 06:21] MED LIST changes: -FAMOTIDINE 20 MG/2 ML VIAL IVP ONE; -LACTATED RINGERS 1,000 ML IV ONE; -LIDOCAINE 2% INJ 20 MG/ML (2 ML VIAL) ONE; -ONDANSETRON 4 MG/2 ML VIAL ONE; -PROPOFOL 10 MG/ML 20 ML VIAL IV ONE
[2022-06-26 07:05] VITALS: RESP 16; TEMP 97.9
[2022-06-26] MEDS ORDERED: MIDAZOLAM 2 MG/2 ML VIAL ONE (07:25)
[2022-06-26] MEDS ORDERED: fentaNYL (PF) 50 MCG/ML 2 ML AMP ONE (07:25)
[2022-06-26] MEDS ORDERED: IOPAMIDOL M200 10 ML VIAL ONE (07:25)
[2022-06-26] MEDS ORDERED: DEXAMETHASONE SOD PHOSPHATE 10 MG/ML 1 ML VIAL ONE (07:25)
--- NOTE | 2022-06-26 07:38 | P.PCN ---
Date of Procedure: 06/26/22 Procedure(s) Performed: . PROCEDURE 1. Cervical epidural steroid injection under fluoroscopic guidance, C6-7 (fluoroscopy images available in the radiology department ) 2. Cervical epidurogram. PREOPERATIVE DIAGNOSIS: 1- Cervical Degenerative Disc Diseases 2- Cervical radiculopathy., 3-cervical spondylosis with cervical Facet arthropathy without myelopathy.4-cervical spinal stenosis POSTOPERATIVE DIAGNOSIS: : 1- Cervical Degenerative Disc Diseases , 2- Cervical radiculopathy. 3-,cervical spondylosis with cervical Facet arthropathy without myelopathy. 4-cervical spinal stenosis ANESTHESIA: moderate sedation, with Versed 2 mg and Fentanyl 100 mcg. Sedation start time : 0 728 Sedation end time : 0 736 EBL 0 PROCEDURE INDICATION: The patient with neck pain and radiculitis unresponsive to conservative treatment consents for procedure. PROCEDURE DESCRIPTION / TECHNIQUE: The patient was seen and identified in the preoperative area. Risks, benefits, complications, including but not limited to infections ,bleeding , allergic reactions to the medications ,and not complete pain releife, and alternatives were discussed with the patient, the patient agreed to proceed with the procedure and signed the consent. Patient was taken to the OR and time out was completed. The patient was placed in the prone position on the procedure table. A pillow was placed under the patients chest to increase the cervical interlaminar space. The cervical area was prepped and draped in the usual sterile fashion. Vital signs were closely monitored during the procedure. Conscious sedation was used during the procedure to decrease patients anxiety. Using anterior-posterior fluoroscopy, the C6-7 interlaminar space was identified and the skin over this site was marked and then infiltrated with 1% lidocaine subcutaneously. Subsequently, a 20-gauge 3-1/2-inch Tuohy epidural needle was inserted and advanced toward the epidural space by means of the ``hanging-drop technique and guided by AP and lateral fluoroscopy. The correct needle position in the epidural space was verified with the injection of 2 mL of the water soluble contrast dye Isovue-200 and observing an excellent epidurogram with the epidural spread of the dye, after negative aspiration for blood and CSF and in the absence of paresthesias. then, mixture containing 20 mg Dexamethasone and 2 ml of preservative-free normal saline injected and a washout of epidurogram w as seen. Needle was withdrawn intact, skin was cleansed, and bandages were applied. Complications= none. Disposition= patient was placed in supine position and transferred to the recovery room area in stable condition and there was no evidence of upper or lower extremity motor or sensory deficit after the procedure patient was discharged from recovery room after discharge criteria met and home discharge instructions was given by the staff and patient will follow with the pain clinic in 2-4 weeks
[2022-06-26] MEDS ORDERED: IV FLUID CONTINUATION 1,000 ML IV ONE (07:40)
[2022-06-26 07:54] VITALS: BP 137/77; PULSE 70
--- NOTE | 2022-06-26 09:23 | FL ---
EXAMINATION TYPE: FL guided pain mgmt statistic DATE OF EXAM: 06/26/2022 HISTORY: Fluoroscopy time 2 seconds of fluoroscopy provided. IMPRESSION: 1. Fluoroscopy time.
== END 2022-06-26 08:06 | disposition home or self-care (01) ==
LOC: ORPAIN 06:21
PROVIDERS: ATTEND Specialist
DX: M50.123 Cervical disc disorder at C6-C7 level with radiculopathy (principal); M47.22 Other spondylosis with radiculopathy, cervical region; M48.02 Spinal stenosis, cervical region; F41.9 Anxiety disorder, unspecified
CPT/HCPCS: 62321; J2250; J1100; J3010; Q9966

== ENCOUNTER → 2022-12-29 | Outpatient (CLI) | payer BC, OTHER ==
[2022-12-29 11:47] VITALS: BP 125/81; PULSE 75; RESP 18; TEMP 98
--- NOTE | 2022-12-29 14:41 | P.PAINPG ---
PQRS Measure Charge Sheet Comment: A 32 yr old male with a history of severe and chronic neck pain x 1 1/2 yrs secondary to cervical DDD and spondylosis with facet arthropathy without myelopathy presents today for evaluation s/p KYRA C6-C7 #1 in Jun 2022. Pt states he experienced 50% pain relief x 2 mo s/p procedure. He states he did not timely follow up due to losing his medical insurance. Pain level is provoked at 6 /10 in intensity, constant, localized in the cervical spine, dull/ achy, tender in character w shooting towards the RUE. Pain is provoked by rotation, flexion, hyperextension, over head reaching. Pain is alleviated with Pt x 6 wks in May 2022, medications, topicals, heat, repositioning and rest. Interventional pain procedures completed include KYRA C6-C7, LESIs, BL RFA L3-L5, Lumbar TPIs Patient is currently on Neurontin, [place], Flexeril by his PCP Patient denies any side effects of the medication(s), denies excessive drowsiness or sleepiness, denies suicidal ideation and reports that the current pain medication is helping to control the pain and improve activities of daily living. Patient denies any motor or sensory deficits. Patient denies any fever or night sweats, denies any change in the bowel movements or urination. Physical Examination: -Constitutional: Cooperative. Not in acute distress . - Neurologic: Cranial nerve II to XII intact. No focal neurological deficits. - Psychatric: Alert & oriented x 3. Matching mood & appropriate affect. Judgment and insight intact. - Musculoskeletal: Cervical spine: Muscle bulk/ tone/ strength in the bilateral upper extremities normal Vertebral body tenderness to palpation over C6 Spurling test positive Distraction test positive Facet loading test positive TTP Thoracic spine Muscle bulk / tone/ strength in the bilateral paraspinal muscles normal Vertebral body tender to palpation over Facet loading test positive TTP Lumbar spine: Motor bulk/ tone/ strength lower extremities , thigh and legs : 5/5 Deep tendon reflexes : Normal Knee Jerk. Normal Ankle Jerk . Vertebral body tenderness to palpation over Lumbar Facet Loading Test positive Straight Leg Raise: positive at 30 degrees right side/ left side Gaenslen's Test positive Sacral spine : Severe tenderness over the Sacroiliac joint: right side / left side Range of motion: Flexion of the lumbar spine <60 degrees Range of motion: Extension of the lumbar spine <20 degrees Gaenslen's Test positive R / L Vannesa test: positive right side / left side Thigh Thrust Test positive R / L Sacral Thrust Test positive R/ L Assessment and plan: Chronic neck pain secondary to cervical DDD, spondylosis with facet arthropathy without myelopathy Recommendation of KYRA C6-C7 #2. May need a series of injections for opt imal pain relief. Risks, benefits of procedure discussed and pt verbalized understanding. Admits to anticoagulant use or medical history of diabetes. Protocol for discontinuation/ continuation of medications kishore procedure discussed. All questions answered. I have spent less than 30 minutes on patient care today. Dr Sidhu was available by phone for the evaluation of this patient. The time was used to review the medical records including relevant urine studies and Prescription history (MAPs), review of the available imaging, evaluation and examination of the patient, coordination of care with the medical staff and if applicable referring physicians, as well as creation of the medical record PQRS Narrative: Smoking Status Current every day smoker Narcotic Agreement Date Signed 02/01/18 Hx Alcohol Use (MH) Yes: social Home Medications: Ambulatory Orders Albuterol Nebulized [Ventolin Nebulized] 2.5 mg INHALATION QID PRN 04/26/14 Beclomethasone Dipropionate [Qvar 80 mcg/puff] 2 puff INHALATION BID PRN 04/26/14 lamoTRIgine [LaMICtal] 200 mg PO BID 01/26/17 Cyclobenzaprine [Flexeril] 10 mg PO BID PRN 12/08/18 Omeprazole [PriLOSEC] 20 mg PO BID 03/10/19 ARIPiprazole [Abilify] 15 mg PO DAILY 04/20/20 Sertraline [Zoloft] 50 mg PO DAILY 04/20/20 Celecoxib [CeleBREX] 50 mg PO DAILY 03/11/22 Gabapentin [Neurontin] 400 mg PO TID 05/01/22 HYDROcodone/APAP 10-325MG [[place] 10-325] 1 tab PO Q4-6H PRN 06/25/22 Controlled Substance Measures - Controlled Substance Measures Is patient prescribed a controlled substance at discharge?: No
== END ==
LOC: PNWHC3 08:30
PROVIDERS: ATTEND Specialist
DX: M50.30 Other cervical disc degeneration, unspecified cervical region (principal); M47.812 Spondylosis without myelopathy or radiculopathy, cervical region; G89.29 Other chronic pain; F17.200 Nicotine dependence, unspecified, uncomplicated; Z91.038 Other insect allergy status; Z91.030 Bee allergy status
CPT/HCPCS: 99211

== ENCOUNTER 2023-02-03 06:26 | Day surgery (SDC) | payer OTHER ==
[2023-01-28 14:40] VITALS: BMI 38.0
[2023-02-03 07:23] VITALS: TEMP 96.6
[2023-02-03] MEDS ORDERED: fentaNYL (PF) 50 MCG/ML 2 ML AMP ONE (07:47)
[2023-02-03] MEDS ORDERED: MIDAZOLAM 2 MG/2 ML VIAL ONE (07:47)
[2023-02-03] MEDS ORDERED: DEXAMETHASONE SOD PHOSPHATE 10 MG/ML 1 ML VIAL ONE (07:47)
[2023-02-03] MEDS ORDERED: IOPAMIDOL M200 10 ML VIAL ONE (07:47)
--- NOTE | 2023-02-03 07:59 | P.PCN ---
Date of Procedure: 02/03/23 Procedure(s) Performed: . PROCEDURE 1. Cervical epidural steroid injection under fluoroscopic guidance, C6-7 ( right paramedial ) (fluoroscopy images available in the radiology department ) 2. Cervical epidurogram. PREOPERATIVE DIAGNOSIS: 1- Cervical Degenerative Disc Diseases 2- Cervical radiculopathy., 3-cervical spondylosis with cervical Facet arthropathy without myelopathy.4-cervical spinal stenosis POSTOPERATIVE DIAGNOSIS: : 1- Cervical Degenerative Disc Diseases , 2- Cervical radiculopathy. 3-,cervical spondylosis with cervical Facet arthropathy without myelopathy. 4-cervical spinal stenosis ANESTHESIA: moderate sedation, with Versed 2 mg and Fentanyl 100 mcg. Sedation start time :0750 Sedation end time :0756 EBL 0 PROCEDURE INDICATION: The patient with neck pain and radiculitis unresponsive to conservative treatment consents for procedure. PROCEDURE DESCRIPTION / TECHNIQUE: The patient was seen and identified in the preoperative area. Risks, benefits, complications, including but not limited to infections ,bleeding , allergic reactions to the medications ,and not complete pain releife, and alternatives were discussed with the patient, the patient agreed to proceed with the procedure and signed the consent. Patient was taken to the OR and time out was completed. The patient was placed in the prone position on the procedure table. A pillow was placed under the patients chest to increase the cervical interlaminar space. The cervical area was prepped and draped in the usual sterile fashion. Vital signs were closely monitored during the procedure. Conscious sedation was used during the procedure to decrease patients anxiety. Using anterior-posterior fluoroscopy, the C6-7interlaminar space was identified and the skin over this site was marked and then infiltrated with 1% lidocaine subcutaneously. Subsequently, a 20-gauge 3-1/2-inch Tuohy epidural needle was inserted ( right paramedial )and advanced toward the epidural space by means of the ``hanging-drop technique and guided by AP and lateral fluoroscopy. The correct needle position in the epidural space was verified with the injection of 2 mL of the water soluble contrast dye Isovue-200 and observing an excellent epidurogram with the epidural spread of the dye, after negative aspiration for blood and CSF and in the absence of paresthesias. then, mixture containing 20 mg Dexamethasone and 2 ml of preservative-free normal saline injected and a washout of epidurogram was seen. Needle was withdrawn intact, skin was cleansed, and bandages were applied. Complications= none. Disposition= patient was placed in supine position and transferred to the recovery room area in stable condition and there was no evidence of upper or lower extremity motor or sensory deficit after the procedure patient was discharged from recovery room after discharge criteria met and home discharge instructions was given by the staff and patient will follow with the pain clinic in 2-4 weeks
[2023-02-03] MEDS ORDERED: IV FLUID CONTINUATION 850 ML IV ONE (08:01)
[2023-02-03 08:06] VITALS: RESP 16
[2023-02-03 08:20] VITALS: BP 110/76; PULSE 60
--- NOTE | 2023-02-03 08:40 | FL ---
EXAMINATION TYPE: FL guided pain mgmt statistic DATE OF EXAM: 02/03/2023 HISTORY: Fluoroscopy time Total dose area product (DAP) in ): 0.73800 mGym2 IMPRESSION: 1. Fluoroscopy time.
== END 2023-02-03 08:30 | disposition home or self-care (01) ==
LOC: ORPAIN 06:26
PROVIDERS: ATTEND Specialist
DX: M47.22 Other spondylosis with radiculopathy, cervical region (principal); M50.123 Cervical disc disorder at C6-C7 level with radiculopathy; M48.02 Spinal stenosis, cervical region; Z91.038 Other insect allergy status; Z91.030 Bee allergy status
CPT/HCPCS: 62321; J2250; J1100; J3010; Q9966

== ENCOUNTER → 2023-02-25 | Outpatient (CLI) | payer OTHER ==
[2023-02-25 09:21] VITALS: BP 128/86; PULSE 69; RESP 18; TEMP 98
--- NOTE | 2023-02-25 15:00 | P.PAINPG ---
PQRS Measure Charge Sheet Comment: A 32 yr old male with a history of severe and chronic neck painx 1 yr secondary to cervical DDD and spondylosis with facet arthropathy without myelopathy presents today for evaluation s/p R paramedian KYRA C6-7. Pt states he experienced 60% pain relief x 3 wks s/p procedure. Pain level is provoked at 7/10 in intensity, constant, localized in the L cervical spine, dull/ achy in character w shooting towards the L side of head. Pain is provoked by rotation. Pain is alleviated with PT w massage x 6 wks in May 2022, heat, ice occasionally, hot showers, medications, repositioning and rest. Interventional pain procedures completed include KYRA R paramedian C6-7 x2 Patient is currently on Ibu Patient denies any side effects of the medication(s), denies excessive drowsiness or sleepiness, denies suicidal ideation and reports that the current pain medication is helping to control the pain and improve activities of daily living. Patient denies any motor or sensory deficits. Patient denies any fever or night sweats, denies any change in the bowel movements or urination. Physical Examination: -Constitutional: Cooperative. Not in acute distress . - Neurologic: Cranial nerve II to XII intact. No focal neurological deficits. - Psychatric: Alert & oriented x 3. Matching mood & appropriate affect. Manuela gment and insight intact. - Musculoskeletal: Cervical spine: Muscle bulk/ tone/ strength in the bilateral upper extremities normal Vertebral body tenderness to palpation over C6 Spurling test positive on C6 Distraction test positive Facet loading test positive TTP Thoracic spine Muscle bulk / tone/ strength in the bilateral paraspinal muscles normal Vertebral body tender to palpation over Facet loading test positive TTP Lumbar spine: Motor bulk/ tone/ strength lower extremities , thigh and legs : 5/5 Deep tendon reflexes : Normal Knee Jerk. Normal Ankle Jerk . Vertebral body tenderness to palpation over Lumbar Facet Loading Test positive Straight Leg Raise: positive at 30 degrees right side/ left side Gaenslen's Test positive Sacral spine : Severe tenderness over the Sacroiliac joint: right side / left side Range of motion: Flexion of the lumbar spine <60 degrees Range of motion: Extension of the lumbar spine <20 degrees Gaenslen's Test positive R / L Vannesa test: positive right side / left side Thigh Thrust Test positive R / L Sacral Thrust Test positive R/ L Assessment and plan: Chronic neck pain secondary to cervical DDD, spondylosis with facet arthropathy without myelopathy Recommendation of L paramedian KYRA C6-7. May need a series of injections for optimal pain relief. Risks, benefits of procedure discussed and pt verbalized understanding. Admits to anticoagulant use or medical history of diabetes. Protocol for discontinuation/ continuation of medications kishore procedure discussed. Minimal anesthesia provided, if clinically indicated, consisting of Versed and Fentanyl. All questions answered. I have spent less than 30 minutes on patient care today. Dr Sidhu was available by phone for the evaluation of this patient. The time was used to review the medical records including relevant urine studies and Prescription history (MAPs), review of the available imaging, evaluation and examination of the patient, coordination of care with the medical staff and if applicable referring physicians, as well as creation of the medical record PQRS Narrative: Smoking Status Current every day smoker Narcotic Agreement Date Signed 02/01/18 Hx Alcohol Use (MH) Yes: social Home Medications: Ambulatory Orders Albuterol Nebulized [Ventolin Nebulized] 2.5 mg INHALATION QID PRN 04/26/14 Beclomethasone Dipropionate [Qvar 80 mcg/puff] 2 puff INHALATION BID PRN 04/26/14 lamoTRIgine [LaMICtal] 200 mg PO BID 01/26/17 Cyclobenzaprine [Flexeril] 10 mg PO BID PRN 12/08/18 Omeprazole [PriLOSEC] 20 mg PO BID 03/10/19 ARIPiprazole [Abilify] 15 mg PO DAILY 04/20/20 Sertraline [Zoloft] 50 mg PO DAILY 04/20/20 Celecoxib [CeleBREX] 50 mg PO DAILY 03/11/22 Gabapentin [Neurontin] 400 mg PO TID 05/01/22 HYDROcodone/APAP 10-325MG [[place] 10-325] 1 tab PO Q4-6H PRN 06/25/22 Controlled Substance Measures - Controlled Substance Measures Is patient prescribed a controlled substance at discharge?: No
== END ==
LOC: PNWHC3 08:11
PROVIDERS: ATTEND Specialist
DX: M50.323 Other cervical disc degeneration at C6-C7 level (principal); M47.812 Spondylosis without myelopathy or radiculopathy, cervical region; G89.29 Other chronic pain; F17.200 Nicotine dependence, unspecified, uncomplicated; Z91.038 Other insect allergy status; Z91.030 Bee allergy status
CPT/HCPCS: 99211

== ENCOUNTER 2023-03-19 08:57 | Day surgery (SDC) | payer OTHER ==
[~2023-03-19 08:57] MED LIST changes: -LIDOCAINE 1% (10MG/ML) FOR IV START INTRADERMA PRN
[2023-03-19 09:25] VITALS: TEMP 98.2
[2023-03-19] MEDS ORDERED: DEXAMETHASONE SOD PHOSPHATE 10 MG/ML 1 ML VIAL ONE (09:33)
[2023-03-19] MEDS ORDERED: IOPAMIDOL M200 10 ML VIAL ONE (09:33)
--- NOTE | 2023-03-19 09:47 | P.PCN ---
Date of Procedure: 03/19/23 Description of Procedure: Pre- and Post-operative Diagnosis: Cervical radiculopathy, and cervical degenerative disc disease Procedure: C6-C7 Inter-Laminar Cervical Epidural Steroid Injection under biplanar fluoroscopy #2 Surgeon: Surya Avila Anesthesia: Local: 1% Lidocaine, IV sedation : None Complications: None. Estimated blood loss: None Specimens removed: None Fluoroscopic image: saved to electronic medical records. Indications for Procedure: The patient has been suffering from neck pain and pain radiating to the upper extremity . Inadequate pain control with pharmacologic regimen. An inter-laminar approach cervical epidural steroid injection was scheduled for the patient. Procedure and Findings: The patient was seen and examined in the holding area. The written informed consent was obtained after explaining the risks, benefits, alternatives of the procedure to the patient. The patient was brought to the procedure room and was placed in the prone position on the operating table. A pillow was placed under the upper chest. Standard anesthesia monitoring was done through out the procedure. Timeout was completed. The skin preparation was done with ChloraPrep 1 and draping was done in usual sterile fashion. Sterile technique was observed throughout the procedure. Under fluoroscopic guidance, the C6-C7 inter-laminar space was identified. 3 ml of 1% Lidocaine was injected with a 25 gauge needle to achieve adequate local a nesthesia of the skin and subcutaneous tissue. A 20 gauge, 3.5 inch Tuohy type epidural needle was placed and gradually advanced up to the epidural space using loss of resistance technique and fluoroscopic guidance. Lateral, oblique fluoroscopic views confirm the needle position. No paresthesia was noted. A negative aspiration was confirmed and then 1 ml of Isovue-200 was injected. A good dye spread was seen in the epidural space and it was negative for any intrathecal, intraneural or intravascular spread. A total of 5 ml solution containing 20 mg Dexamethasone, and 3 ml preservative-free Normal Saline was injected slowly with intermittent aspiration. The needle was removed intact, area was cleaned and bandage was applied. Disposition : The patient tolerated the procedure very well. The patient was transferred to the recovery room and remained stable until discharged home. The patient was given detailed discharge instructions for bleeding, infection, increased pain at the injection site, and was advised to seek immediate medical attention should significant side effects develop. The patient will be followed up with our Pain Clinic within 4 weeks for follow-up visit.
[2023-03-19] MEDS ORDERED: LACTATED RINGERS 1,000 ML IV SCH (09:48)
[2023-03-19] MEDS ORDERED: LIDOCAINE 1% (10MG/ML) FOR IV START INTRADERMA PRN (09:48)
[2023-03-19 09:51] VITALS: PULSE 68; RESP 16
[2023-03-19 10:03] VITALS: BP 126/81
--- NOTE | 2023-03-19 10:32 | FL ---
EXAMINATION TYPE: FL guided pain mgmt statistic DATE OF EXAM: 03/19/2023 HISTORY: Fluoroscopy time Total dose area product (DAP) in uGy*m?, mGy*cm? (or similar): 0.93124 IMPRESSION: 1. Fluoroscopy time.
== END 2023-03-19 10:08 | disposition home or self-care (01) ==
LOC: ORPAIN 08:57
DX: M50.123 Cervical disc disorder at C6-C7 level with radiculopathy (principal); M51.16 Intervertebral disc disorders with radiculopathy, lumbar region; J45.909 Unspecified asthma, uncomplicated; K21.9 Gastro-esophageal reflux disease without esophagitis; F17.290 Nicotine dependence, other tobacco product, uncomplicated; F12.90 Cannabis use, unspecified, uncomplicated; Z91.030 Bee allergy status; Z79.1 Long term (current) use of non-steroidal anti-inflammatories (NSAID); Z79.51 Long term (current) use of inhaled steroids; Z79.899 Other long term (current) drug therapy
CPT/HCPCS: 62321; J1100; Q9966

== ENCOUNTER → 2023-05-07 | Outpatient (CLI) | payer OTHER ==
[2023-05-07 11:01] VITALS: BP 136/84; PULSE 71; RESP 15; TEMP 97.6
--- NOTE | 2023-05-07 13:28 | P.PAINPG ---
PQRS Measure Charge Sheet Comment: A 32 yr old male with a history of severe and chronic neck painx 1 yr secondary to cervical DDD and spondylosis with facet arthropathy without myelopathy presents today for evaluation s/p KYRA L paramedian C6-7. Pt states he experienced 75 % pain relief x 6 wks s/p procedure. Pain level is provoked at 7/10 in intensity, constant, localized in the lower lumbar spine, dull/ achy in character w shooting like a band L & R of midline. Pain is provoked by standing/ walking for periods of 15 min or more. Pain is alleviated with PT w massage x 6 wks in May 2022, heat, ice occasionally, hot showers, medications, repositioning and rest. Oswestry axial pain score of 21. Pt states he underwent a BL RFA L4- L5, L5-S1 in May 2020 where he admits he experienced 80% pain relief x 1 yr s/p procedure. Interventional pain procedures completed include KYRA C6-7 x3, BL RFA L3-L5 (May 2020) Patient is currently on Ibu Patient denies any side effects of the medication(s), denies excessive drowsiness or sleepiness, denies suicidal ideation and reports that the current pain medication is helping to control the pain and improve activities of daily living. Patient denies any motor or sensory deficits. Patient denies any fever or night sweats, denies any change in the bowel movements or urination. Physical Examination: -Constitutional: Cooperative. Not in acute distress . - Neurologic: Cranial nerve II to XII intact. No focal neurological deficits. - Psychatric: Alert & oriented x 3. Matching mood & appropriate affect. Judgment and insight intact. - Musculoskeletal: Cervical spine: Muscle bulk/ tone/ strength in the bilateral upper extremities normal Vertebral body tenderness to palpation over C6 Spurling test positive Distraction test positive Facet loading test positive TTP Thoracic spine Muscle bulk / tone/ strength in the bilateral paraspinal muscles normal Vertebral body tender to palpation over Facet loading test positive TTP Lumbar spine: Motor bulk/ tone/ strength lower extremities , thigh and legs : 5/5 Deep tendon reflexes : Normal Knee Jerk. Normal Ankle Jerk . Vertebral body tenderness to palpation over Lumbar Facet Loading Test positive over BL L4-L5, L5-S1 Straight Leg Raise: positive at 30 degrees right side/ left side Gaenslen's Test positive Sacral spine : Severe tenderness over the Sacroiliac joint: right side / left side Range of motion: Flexion of the lumbar spine <60 degrees Range of motion: Extension of the lumbar spine <20 degrees Gaenslen's Test positive R / L Vannesa test: positive right side / left side Thigh Thrust Test positive R / L Sacral Thrust Test positive R/ L Assessment and plan: Chronic LBP secondary to lumbar DDD, spondylosis with facet arthropathy without myelopathy Recommendation of BL RFA L4-L5, L5-S1. Pt exhibited substantial pain relief w prior RFA procedure. Risks, benefits of procedure discussed and pt verbalized understanding. Protocol for discontinuation/ continuation of medications kishore procedure discussed. All questions answered. I have spent less than 30 minutes on patient care today. Dr Sidhu was available by phone for the evaluation of this patient. The time was used to review the medical records including relevant urine studies and Prescription history (MAPs), review of the available imaging, evaluation and examination of the patient, coordination of care with the medical staff and if applicable referring physicians, as well as creation of the medical record PQRS Narrative: Smoking Status Current every day smoker Narcotic Agreement Date Signed 02/01/18 Hx Alcohol Use (MH) Yes: social Home Medications: Ambulatory Orders Albuterol Nebulized [Ventolin Nebulized] 2.5 mg INHALATION QID PRN 04/26/14 Beclomethasone Dipropionate [Qvar 80 mcg/puff] 2 puff INHALATION BID PRN 04/26/14 lamoTRIgine [LaMICtal] 200 mg PO BID 01/26/17 Cyclobenzaprine [Flexeril] 10 mg PO BID PRN 12/08/18 Omeprazole [PriLOSEC] 20 mg PO BID 03/10/19 ARIPiprazole [Abilify] 15 mg PO DAILY 04/20/20 Sertraline [Zoloft] 50 mg PO DAILY 04/20/20 Celecoxib [CeleBREX] 50 mg PO DAILY 03/11/22 Gabapentin [Neurontin] 400 mg PO TID 05/01/22 HYDROcodone/APAP 10-325MG [[place] 10-325] 1 tab PO Q4-6H PRN 06/25/22 Controlled Substance Measures - Controlled Substance Measures Is patient prescribed a controlled substance at discharge?: No
== END ==
LOC: PNWHC3 10:32
PROVIDERS: ATTEND Specialist
DX: M51.37 Other intervertebral disc degeneration, lumbosacral region (principal); M47.817 Spondylosis without myelopathy or radiculopathy, lumbosacral region; G89.29 Other chronic pain; F17.200 Nicotine dependence, unspecified, uncomplicated; Z91.030 Bee allergy status; Z91.038 Other insect allergy status
CPT/HCPCS: 99211

== ENCOUNTER → 2023-05-21 | Day surgery (SDC) | payer OTHER ==
[~2023-05-21] MED LIST changes: +LACTATED RINGERS 1,000 ML IV ONE; +LIDOCAINE 1% (10MG/ML) FOR IV START INTRADERMA PRN; +MIDAZOLAM 2 MG/2 ML VIAL ONE; +ROPIVACAINE 5 MG/ML 20 ML AMPULE ONE; +fentaNYL (PF) 50 MCG/ML 2 ML AMP ONE; +methylPREDNISolone ACETATE 40 MG/ML 1 ML VIAL ONE
[2023-05-21 06:22] VITALS: TEMP 97
--- NOTE | 2023-05-21 07:38 | P.PCN ---
Date of Procedure: 05/21/23 Procedure(s) Performed: PREOPERATIVE DIAGNOSIS: 1-Lumbar Spondylosis with Facet Arthropathy without myelopathy. 2- Lumber degenerative disc disease. POSTOPERATIVE DIAGNOSIS: 1- Lumbar Spondylosis with Facet Arthropathy without myelopathy. 2- Lumber degenerative disc disease. PROCEDURES : Bilateral Radiofrequency thermocoagulation, L3 , L4 , and L5 medial branch, with fluoroscopic guidance (fluoroscopy images available in the radiology department) ( to denervate the facet joint at bilateral L4-5 ,and L5-S1 levels ). ANESTHESIA: Moderate sedation with intravenous versed 2 mg and fentaneyl 150 mcg, and local infiltration with Ropivacaine 0.5 % . Sedations start time at 07:05, end time 07:35. EBL: Minimal PROCEDURE INDICATION: The patient with low back pain secondary to lumbar facet arthropathy who had more than 50% relief of her pain with previous diagnostic lumbar medial branch block with bupivacaine. PROCEDURE DESCRIPTION / TECHNIQUE: The patient was seen and identified in the preoperative area. Risks, benefits, complications, including but not limited to risk of infection ,bleeding , allergic reactions to the medications and no complete pain releife , and alternatives were discussed with the patient, the patient agreed to proceed with the procedure and signed the consent. IV was started. Vital signs remained stable throughout the procedure. Patient was taken to the OR and time out was completed. The patient was placed in the prone position on the procedure table. The lumber area was prepped and draped in the usual sterile fashion. . Vital signs were closely monitored during the procedure .IV sedation was used during the procedure to decrease patients anxiety. Using AP and then oblique fluoroscopy, the ``eye of the Jose dog corresponding to the connection between the superior and transverse articular processes of right L3, L4, and L5 were identified, marked, and localized with 1% lidocaine. Subsequently, a 18 [id number] radiofrequency cannula with a 10- mm active tip was advanced guided by fluoroscopy to each of the``eyes of the Jose dog at right L3, L4, and L5. Each site then underwent sensory testing at 50 Hz and 0 to 1 volt and motor testing at 2.5 Hz and 0 to 3 volt with l ocal stimulation, but no radicular symptoms down the legs. Thereafter each sites underwent radiofrequency thermocoagulation at 80 degrees celsius for 90 seconds after injecting 0.5 ml of PF Ropivacaine 1ml, then after the thermocoagulation done , 1 ml of the block solution containing Depo-Medrol 20 mg and 3 ml of Ropivacaine 0.5% was injected at the right L3 , L4 , and L5 , levels after negative aspiration of CSF and blood and with no paresthesias. Cannulas were retracted while injecting lidocaine 1% until the needle is out. The same procedure was repeated at the level of Left L3, L4, and L5 levels. At the end of the procedure, the skin was cleansed and bandages were applied. COMPLICATIONS: No acute complications. DISPOSITION / PLANS: The patient was placed in a supine position and transferred to the recovery area in a stable condition for observation and was discharged from the recovery room after meeting discharge criteria. Home discharge instructions given to the patient by the staff. The patient was reexamined prior to discharge. The patient will schedule a follow up in the clinic in 2-4 weeks.
--- NOTE | 2023-05-21 07:45 | FL ---
Intraoperative/procedural fluoroscopic services were provided for bilateral lumbar radiofrequency. To keiry fluoroscopy time is 43.3 seconds with a total of 6 submitted images to PACS. Total DAP [id number] mG ym2. Please see the operative note for further details.
[2023-05-21 07:48] VITALS: RESP 16
[2023-05-21 07:58] VITALS: BP 132/78; PULSE 55
== END ==
LOC: ORPAIN 06:06
PROVIDERS: ATTEND Specialist
DX: M51.36 Other intervertebral disc degeneration, lumbar region (principal); M47.816 Spondylosis without myelopathy or radiculopathy, lumbar region
CPT/HCPCS: 64635; 64636 ×2; J2250; J1030; J3010; J2795; 99153

== ENCOUNTER → 2023-06-11 | Outpatient (CLI) | payer OTHER ==
[2023-06-11 08:31] VITALS: BP 122/83; PULSE 69; RESP 16; TEMP 98.4
--- NOTE | 2023-06-11 14:50 | P.PAINPG ---
PQRS Measure Charge Sheet Comment: A 32 yr old male with a history of severe and chronic LBP x 1 yr secondary to DDD and spondylosis with facet arthropathy without myelopathy presents today for evaluation s/p BL RFA L3-L5. Pt states he experienced 70% pain relief s/p procedure. Pain level is provoked at 5/10 in intensity, constant, localized in the lower lumbar spine, pressure like in character w shooting like a band L & R of midline. Pain is provoked by standing/ walking for periods of 15 min or more. Pain is alleviated with PT w massage x 6-8 wks in May 2022, heat, hot showers, medications, topical, repositioning and rest. Oswestry axial pain score of 21. Interventional pain procedures completed include KYRA C6-7 x3, BL RFA L3-L5 (May 2020, May 2023) Patient is currently on Ibu, Celebrex, Neurontin, Amboy, Biofreeze gel Patient denies any side effects of the medication(s), denies excessive drowsiness or sleepiness, denies suicidal ideation and reports that the current pain medication is helping to control the pain and improve activities of daily living. Patient denies any motor or sensory deficits. Patient denies any fever or night sweats, denies any change in the bowel movements or urination. Physical Examination: -Constitutional: Cooperative. Not in acute distress . - Neurologic: Cranial nerve II to XII intact. No focal neurological deficits. - Psychatric: Alert & oriented x 3. Matching mood & appropriate affect. Judgment and insight intact. - Musculoskeletal: Cervical spine: Muscle bulk/ tone/ strength in the bilateral upper extremities normal Vertebral body tenderness to palpation over C6 Spurling test positive Distraction test positive Facet loading test positive TTP Thoracic spine Muscle bulk / tone/ strength in the bilateral paraspinal muscles normal Vertebral body tender to palpation over Facet loading test positive TTP Lumbar spine: Motor bulk/ tone/ strength lower extremities , thigh and legs : 5/5 Deep tendon reflexes : Normal Knee Jerk. Normal Ankle Jerk . Vertebral body tenderness to palpation over Lumbar Facet Loading Test positive over BL L4-L5, L5-S1 Straight Leg Raise: positive at 30 degrees right side/ left side Gaenslen's Test positive Sacral spine : Severe tenderness over the Sacroiliac joint: right side / left side Range of motion: Flexion of the lumbar spine <60 degrees Range of motion: Extension of the lumbar spine <20 degrees Gaenslen's Test positive R / L Vannesa test: positive right side / left side Thigh Thrust Test positive R / L Sacral Thrust Test positive R/ L Assessment and plan: Chronic LBP secondary to lumbar DDD, spondylosis with facet arthropathy without myelopathy Will manage residual pain on his own and may return to clinic on an as needed basis. All questions answered. I have spent less than 30 minutes on patient care today. Dr Sidhu was available by phone for the evaluation of this patient. The time was used to review the medical records including relevant urine studies and Prescription history (MAPs), review of the available imaging, evaluation and examination of the patient, coordination of care with the medical staff and if applicable referring physicians, as well as creation of the medical record PQRS Narrative: Smoking Status Current every day smoker Narcotic Agreement Date Signed 02/01/18 Hx Alcohol Use (MH) Yes: social Home Medications: Ambulatory Orders Albuterol Nebulized [Ventolin Nebulized] 2.5 mg INHALATION QID PRN 04/26/14 Beclomethasone Dipropionate [Qvar 80 mcg/puff] 2 puff INHALATION BID PRN 04/26/14 lamoTRIgine [LaMICtal] 200 mg PO DAILY 01/26/17 Cyclobenzaprine [Flexeril] 10 mg PO BID PRN 12/08/18 Omeprazole [PriLOSEC] 20 mg PO BID PRN 03/10/19 ARIPiprazole [Abilify] 15 mg PO DAILY 04/20/20 Sertraline [Zoloft] 50 mg PO DAILY 04/20/20 Celecoxib [CeleBREX] 50 mg PO DAILY 03/11/22 Gabapentin [Neurontin] 400 mg PO TID 05/01/22 HYDROcodone/APAP 10-325MG [Amboy 10-325] 1 tab PO Q4-6H PRN 06/25/22 Controlled Substance Measures - Controlled Substance Measures Is patient prescribed a controlled substance at discharge?: No
== END ==
LOC: PNWHC3 08:03
PROVIDERS: ATTEND Specialist
DX: M47.817 Spondylosis without myelopathy or radiculopathy, lumbosacral region (principal); G89.29 Other chronic pain; F17.200 Nicotine dependence, unspecified, uncomplicated; Z91.030 Bee allergy status; Z91.038 Other insect allergy status
CPT/HCPCS: 99211

== ENCOUNTER 2023-06-19 08:28 | Emergency (ER) | payer OTHER ==
[2023-06-19 08:33] VITALS: RESP 18
--- NOTE | 2023-06-19 09:04 | ED ---
Male Urogenital HPI - General Chief complaint: Urogenital Stated complaint: kidney pain Time Seen by Provider: 06/19/23 08:34 Source: patient Mode of arrival: ambulatory Limitations: no limitations - History of Present Illness Initial comments: Patient is a 32-year-old male presents to the ED with the chief complaint of left lower back pain that started 2 weeks ago and has progressively gotten worse over the last 2 days. Patient reports that he went to urgent care in [place] 2 weeks ago and was diagnosed with a UTI and treated with antibiotics. Patient also noticed that 2 weeks ago he was having gross hematuria during urination. This has not occurred since and patient denies any fevers chills. Patient does have a past medical history of herniated disks in his lower back, patient reports that one month ago he actually had a epidural procedure completed for this condition. MD Complaint: dysuria Quality: aching Consistency: constant Improves with: none Worsens with: movement new medication Reports: denies other symptoms, blood in urine - Related Data Home Medications Medication Instructions Recorded Confirmed Albuterol Nebulized [Ventolin 2.5 mg INHALATION QID PRN 04/26/14 06/11/23 Nebulized] Beclomethasone Dipropionate [Qvar 2 puff INHALATION BID PRN 04/26/14 06/11/23 80 mcg/puff] lamoTRIgine [LaMICtal] 200 mg PO DAILY 01/26/17 06/11/23 Cyclobenzaprine [Flexeril] 10 mg PO BID PRN 12/08/18 06/11/23 Omeprazole [PriLOSEC] 20 mg PO BID PRN 03/10/19 06/11/23 ARIPiprazole [Abilify] 15 mg PO DAILY 04/20/20 06/11/23 Sertraline [Zoloft] 50 mg PO DAILY 04/20/20 06/11/23 Celecoxib [CeleBREX] 50 mg PO DAILY 03/11/22 06/11/23 Gabapentin [Neurontin] 400 mg PO TID 05/01/22 06/11/23 HYDROcodone/APAP 10-325MG [Lorenzo 1 tab PO Q4-6H PRN 06/25/22 06/11/23 10-325] Allergies Allergy/AdvReac Type Severity Reaction Status Date / Time shellfish derived [Shellfish] Allergy Unknown Verified 06/19/23 08:34 venom-honey bee Allergy extensive Verified 06/11/23 08:20 [bee venom (honey bee)] burning and itching mosquito bites Allergy Swelling Uncoded 06/11/23 08:20 Review of Systems ROS Statement: Those systems with pertinent positive or pertinent negative responses have been documented in the HPI. ROS Other: All systems not noted in ROS Statement are negative. Past Medical History Past Medical History: Asthma, Chest Pain / Angina, GERD/Reflux, Musculoskeletal Disorder Additional Past Medical History / Comment(s): HERNIATED DISCS, back pain radiates marissa legs, recent abd. pain, colitis rt sided chest pain,"lung pain" History of Any Multi-Drug Resistant Organisms: None Reported Past Surgical History: Cholecystectomy Additional Past Surgical History / Comment(s): myringotomy & tubes, epidural pain procedures Past Anesthesia/Blood Transfusion Reactions: No Reported Reaction, Motion Sickness Additional Past Anesthesia/Blood Transfusion Reaction / Comment(s): says tends to need alot of anesthesia to be put out Past Psychological History: ADD/ADHD, Bipolar, Depression Smoking Status: Former smoker, Vaper Past Alcohol Use History: Occasional Past Drug Use History: Marijuana - Past Family History Mother Family Medical History: No Reported History Son(s) Family Medical History: Cancer Father Family Medical History: Deep Vein Thrombosis (DVT) General Exam Limitations: no limitations Head exam: Present: atraumatic Eye exam: Present: normal appearance ENT exam: Present: normal exam Neck exam: Present: normal inspection Respiratory exam: Present: normal lung sounds bilaterally Cardiovascular Exam: Present: regular rate GI/Abdominal exam: Present: soft Back exam: Present: CVA tenderness (L) Course Vital Signs 06/19/23 06/19/23 08:30 10:33 Temperature 97.8 F 98.1 F Pulse Rate 78 62 Respiratory 18 18 Rate Blood Pressure 174/77 133/79 O2 Sat by Pulse 98 98 Oximetry Medical Decision Making - Medical Decision Making Was pt. sent in by a medical professional or institution (, PA, [employer], urgent care, hospital, or correction...) When possible be specific @ -[No] Did you speak to anyone other than the patient for history (EMS, parent, family, police, friend...)? What history was obtained from this source @ -[No] Did you review nursing and triage notes (agree or disagree)? Why? @ -[I reviewed and agree with nursing and triage notes] Were old charts reviewed (outside hosp., previous admission, EMS record, old EKG, old radiological studies, urgent care reports/EKG's, correction records)? Report findings @ -[No old charts were reviewed] Acute ligamentous injury Acute muscle strain Disk herniation (Sciatica) @ -[not applicable] none @ -[As above] none @ -[None done] CT pending . @ -[None done] U/S interpreted by me (1pt. min.). @ -[None done] What testing was considered but not performed or refused? (CT, X-rays, U/S, labs)? Why? @ -[None] What meds were considered but not given or refused? Why? @ -[None] Did you discuss the management of the patient with other professionals (professionals i.e. , PA, [employer]IVER, lab, RT, psych nurse, social media marketing analyst, environmental marketer, teacher, agricultural extension officer, test case developer)? Give summary @ -[No] Was smoking cessation discussed for >3mins.? @ -I discussed smoking cessation for greater than 3 minutes. The risk of s moking were discussed with the patient including but not limited to risks of cancer, stroke, coronary artery disease and COPD. Also discussed with patient were multiple methods of quitting smoking. Lastly we discussed the financial cost of smoking. Was critical care preformed (if so, how long)? @ -[No] Were there social determinants of health that impacted care today? How? (Homelessness, low income, unemployed, alcoholism, drug addiction, transportation, low edu. Level, literacy, decrease access to med. care, custodial, rehab)? @ -[No] Was there de-escalation of care discussed even if they declined (Discuss DNR or withdrawal of care, Hospice)? DNR status @ -[No] What co-morbidities impacted this encounter? (DM, HTN, Smoking, COPD, CAD, Cancer, CVA, ARF, Chemo, Hep., AIDS, mental health diagnosis, sleep apnea, morbid obesity)? @ -[None] Was patient admitted / discharged? Hospital course, mention meds given and route, prescriptions, significant lab abnormalities, going to OR and other pertinent info. @ - CT and UA no sign of infection CT shows small nonobstructive stone, BP reduced to 133/76 after rechecking, LBP probably due to herniated disk issues rather than GI or stones issue, UA was negative, informed pt to f/u with pcp within 1 week. Regarding Leukocytosis and BG/hepatomegaly pt to f/u with pcp within 1 week of d/c. pt Informed pt to use supportive tx regarding MSK issue, pt denied ab Undiagnosed new problem with uncertain prognosis? @ -No Drug Therapy requiring intensive monitoring for toxicity (Heparin, Nitro, Insulin, Cardizem)? @ -[No] Were any procedures done? @ -[No] Diagnosis/symptom? @ -Flank pain due to LBP etiology Acute, or Chronic, or Acute on Chronic? @ -Acute Uncomplicated (without systemic symptoms) or Complicated (systemic symptoms)? @ -uncomplicated Side effects of treatment? @ -none Exacerbation, Progression, or Severe Exacerbation? @ -[No] Poses a threat to life or bodily function? How? (Chest pain, [place], [place], pneumonia, PE, COPD, DKA, ARF, appy, cholecystitis, CVA, Diverticulitis, Homicidal, Suicidal, threat to staff... and all critical care pts) @ -[No] - Lab Data Result diagrams: 06/19/23 08:59 06/19/23 08:59 Lab Results 06/19/23 06/19/23 06/19/23 Range/Units 08:59 08:59 08:59 WBC 10.9 H (3.8-10.6) k/uL RBC 4.71 (4.30-5.90) m/uL Hgb 14.5 (13.0-17.5) gm/dL Hct 41.5 (39.0-53.0) % MCV 88.0 (80.0-100.0) fL MCH 30.8 (25.0-35.0) pg MCHC 35.0 (31.0-37.0) g/dL RDW 12.9 (11.5-15.5) % Plt Count 333 (150-450) k/uL MPV 7.3 Neutrophils % 65 % Lymphocytes % 25 % Monocytes % 6 % Eosinophils % 2 % Basophils % 0 % Neutrophils # 7.1 (1.3-7.7) k/uL Lymphocytes # 2.7 (1.0-4.8) k/uL Monocytes # 0.7 (0-1.0) k/uL Eosinophils # 0.2 (0-0.7) k/uL Basophils # 0.0 (0-0.2) k/uL Sodium 138 (137-145) mmol/L Potassium 4.2 (3.5-5.1) mmol/L Chloride 108 H (98-107) mmol/L Carbon Dioxide 24 (22-30) mmol/L Anion Gap 6 mmol/L BUN 13 (9-20) mg/dL Creatinine 0.88 (0.66-1.25) mg/dL Est GFR (CKD-EPI)AfAm >90 (>60 ml/min/1.73 sqM) Est GFR (CKD-EPI)NonAf >90 (>60 ml/min/1.73 sqM) Glucose 96 (74-99) mg/dL Plasma Lactic Acid Santosh (0.7-2.0) mmol/L Calcium 9.3 (8.4-10.2) mg/dL Total Bilirubin 0.4 (0.2-1.3) mg/dL AST 33 (17-59) U/L ALT 36 (4-49) U/L Alkaline Phosphatase 62 (38-126) U/L Total Protein 7.0 (6.3-8.2) g/dL Albumin 4.2 (3.5-5.0) g/dL Urine Color Colorless Urine Appearance Clear (Clear) Urine pH 6.5 (5.0-8.0) Ur Specific [place] 1.009 (1.001-1.035) Urine Protein Negative (Negative) Urine Glucose (UA) Negative (Negative) Urine Ketones Negative (Negative) Urine Blood Negative (Negative) Urine Nitrite Negative (Negative) Urine Bilirubin Negative (Negative) Urine Urobilinogen <2.0 (<2.0) mg/dL Ur Leukocyte Esterase Negative (Negative) 06/19/23 Range/Units 08:59 WBC (3.8-10.6) k/uL RBC (4.30-5.90) m/uL Hgb (13.0-17.5) gm/dL Hct (39.0-53.0) % MCV (80.0-100.0) fL MCH (25.0-35.0) pg MCHC (31.0-37.0) g/dL RDW (11.5-15.5) % Plt Count (150-450) k/uL MPV Neutrophils % % Lymphocytes % % Monocytes % % Eosinophils % % Basophils % % Neutrophils # (1.3-7.7) k/uL Lymphocytes # (1.0-4.8) k/uL Monocytes # (0-1.0) k/uL Eosinophils # (0-0.7) k/uL Basophils # (0-0.2) k/uL Sodium (137-145) mmol/L Potassium (3.5-5.1) mmol/L Chloride (98-107) mmol/L Carbon Dioxide (22-30) mmol/L Anion Gap mmol/L BUN (9-20) mg/dL Creatinine (0.66-1.25) mg/dL Est GFR (CKD-EPI)AfAm (>60 ml/min/1.73 sqM) Est GFR (CKD-EPI)NonAf (>60 ml/min/1.73 sqM) Glucose (74-99) mg/dL Plasma Lactic Acid Santosh 1.1 (0.7-2.0) mmol/L Calcium (8.4-10.2) mg/dL Total Bilirubin (0.2-1.3) mg/dL AST (17-59) U/L ALT (4-49) U/L Alkaline Phosphatase (38-126) U/L Total Protein (6.3-8.2) g/dL Albumin (3.5-5.0) g/dL Urine Color Urine Appearance (Clear) Urine pH (5.0-8.0) Ur Specific [place] (1.001-1.035) Urine Protein (Negative) Urine Glucose (UA) (Negative) Urine Ketones (Negative) Urine Blood (Negative) Urine Nitrite (Negative) Urine Bilirubin (Negative) Urine Urobilinogen (<2.0) mg/dL Ur Leukocyte Esterase (Negative) Disposition Clinical Impression: Flank pain Disposition: HOME SELF-CARE Condition: Good Additional Instructions: Should follow-up within 1 week with pcp regarding Hepatomegaly and Lower back pain. Pt may use OTC NSAIDS for pain and increase hydration. Is patient prescribed a controlled substance at d/c from ED?: No If prescribed controlled substance>3 days was MAPS reviewed?: No Referrals: Mery Isaac PAC [REFERRING] - 1-2 days Time of Disposition: 12:01
[2023-06-19 09:17] LABS: Basophils % (A) 0 %; Eosinophils # (A) 0.2 k/uL (0-0.7); Eosinophils % (A) 2 %; HCT 41.5 % (39.0-53.0); HGB 14.5 gm/dL (13.0-17.5); Lymphocytes # (A) 2.7 k/uL (1.0-4.8); Lymphocytes % (A) 25 %; MCH 30.8 pg (25.0-35.0); Mean Platelet Volume 7.3; Monocytes # (A) 0.7 k/uL (0-1.0); Monocytes % (A) 6 %; Neutrophils # (A) 7.1 k/uL (1.3-7.7); Neutrophils % (A) 65 %; Platelet Count 333 k/uL (150-450); RBC 4.71 m/uL (4.30-5.90); RDW 12.9 % (11.5-15.5); WBC 10.9 k/uL (3.8-10.6)
[2023-06-19 09:18] LABS: Appearance,Urine Clear (Clear); Bilirubin,Urine Negative (Negative); Blood,Urine Negative (Negative); Color,Urine Colorless; Glucose,Urine (UA) Negative (Negative); Ketones,Urine Negative (Negative); Leukocyte Esterase,Urine Negative (Negative); Nitrite,Urine Negative (Negative); PH, Urine 6.5 (5.0-8.0); Protein,Urine Negative (Negative); Specific Gravity,Urine 1.009 (1.001-1.035); Urobilinogen,Urine <2.0 mg/dL (<2.0)
[2023-06-19 09:42] LABS: African American GFR (CKD) >90 (>60 ml/min/1.73 sqM); Albumin 4.2 g/dL (3.5-5.0); Anion Gap 6 mmol/L; Blood Urea Nitrogen 13 mg/dL (9-20); Carbon Dioxide 24 mmol/L (22-30); Chloride 108 mmol/L (98-107); Glucose 96 mg/dL (74-99); Non-African American GFR(CKD) >90 (>60 ml/min/1.73 sqM); Potassium 4.2 mmol/L (3.5-5.1); Sodium 138 mmol/L (137-145)
[2023-06-19 09:43] LABS: ALT 36 U/L (4-49); AST 33 U/L (17-59); Alkaline Phosphatase 62 U/L (38-126); Calcium 9.3 mg/dL (8.4-10.2); Total Bilirubin 0.4 mg/dL (0.2-1.3)
[2023-06-19 10:41] VITALS: BP 133/79; PULSE 62; TEMP 98.1
--- NOTE | 2023-06-19 10:49 | CT ---
EXAMINATION TYPE: CT abdomen pelvis wo con DATE OF EXAM: 06/19/2023 COMPARISON: 12/29/2018 HISTORY: 32-year-old male Lt flank pain CT DLP: 1649.4 mGycm. Automated exposure control for dose reduction was used. TECHNIQUE: Contiguous axial scanning of the abdomen and pelvis without IV contrast. Coronal and sagit keiry reconstructions performed. FINDINGS: LUNG BASES: No significant abnormality is appreciated. LIVER/GB: Hepatomegaly at 19.4 cm with at least mild fatty infiltration of the liver. Gallbladder lidya gically absent. PANCREAS: No significant abnormality is seen. SPLEEN: No significant abnormality is seen. ADRENALS: No significant abnormality is seen. KIDNEYS: 5 mm nonobstructive calculus left kidney. No hydronephrosis on either side. No ureteral calc ulus identified. BOWEL: No significant abnormality is seen. Normal appendix. Scattered mild stool. LYMPH NODES: No significant abnormality is seen. OTHER: No free fluid or free air. PELVIS: No significant abnormality is seen. BONES: L3 bilateral pars defects with hypertrophic facet arthropathy and grade 1 anterolisthesis L3-L 4 and moderate to advanced degenerative disc disease here. IMPRESSION: 1. A nonobstructive 5 mm stone in the left kidney. No obstructive uropathy seen. 2. Hepatomegaly at 19.4 cm with at least mild fatty infiltration of the liver. Appropriate clinical management recommended. 3. Bilateral L3 pars defects with hypertrophic facet arthropathy and grade 1 anterolisthesis here at L3-L4. Associated moderate to advanced degenerative disc disease here as well.
== END 2023-06-19 11:11 | disposition home or self-care (01) ==
LOC: EC 08:28 → SUPCPDRO 08:28 → EC 11:11
DX: N20.0 Calculus of kidney (principal); J45.909 Unspecified asthma, uncomplicated; K21.9 Gastro-esophageal reflux disease without esophagitis; F31.9 Bipolar disorder, unspecified; F41.9 Anxiety disorder, unspecified; F17.290 Nicotine dependence, other tobacco product, uncomplicated; Z79.899 Other long term (current) drug therapy; Z91.013 Allergy to seafood; Z91.030 Bee allergy status; Z91.038 Other insect allergy status
CPT/HCPCS: 36415; 74176; 80053; 81003; 83605; 85025; 99284; 99406

== ENCOUNTER → 2023-08-26 | Outpatient (CLI) | payer OTHER ==
[2023-08-26 08:53] VITALS: BP 136/97; PULSE 62; RESP 15; TEMP 98.7
--- NOTE | 2023-08-26 09:20 | XR ---
EXAM TYPE: LUMBAR SPINE X RAY SERIES COMPARISON: 07/09/2012 HISTORY: Pain TECHNIQUE: 4 views are submitted. FINDINGS: Alignment is anatomic. The pedicles are intact. The transverse processes are intact. 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 There is an endplate deformity T12 with areas of scler osis possibly related to bone island or Schmorl's node. Severe degenerative disc disease L3-4. Modera te changes of L5-S1. IMPRESSION: 1. 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 Recommend follow-up MRI as foraminal encroachment is suspected 2. Moderate degenerative disc disease L5-S1
--- NOTE | 2023-08-26 14:40 | P.PAINPG ---
PQRS Measure Charge Sheet Comment: A 32 yr old male with a history of severe and chronic LBP x 1 yr secondary to DDD and spondylosis with facet arthropathy without myelopathy presents today for evaluation. Pain level is provoked at 6/10 in intensity, constant, localized in the lower lumbar spine, predominatly axial and pressure like in ch aracter w shooting like a band down the LLE. Pain is provoked by standing/ walking for periods of 15 min or more. Pain is alleviated with PT w massage x 6- 8 wks in May 2022, heat, hot showers, medications, topical, repositioning and rest. Oswestry axial pain score of 21. Interventional pain procedures completed include KYRA C6-7 x3, BL RFA L3-L5 (May 2020, May 2023) Patient is currently on Ibu, Celebrex, Neurontin, Grant, Biofreeze gel Patient denies any side effects of the medication(s), denies excessive drowsiness or sleepiness, denies suicidal ideation and reports that the current pain medication is helping to control the pain and improve activities of daily living. Patient denies any motor or sensory deficits. Patient denies any fever or night sweats, denies any change in the bowel movements or urination. Physical Examination: -Constitutional: Cooperative. Not in acute distress . - Neurologic: Cranial nerve II to XII intact. No focal neurological deficits. - Psychatric: Alert & oriented x 3. Matching mood & appropriate affect. Judgment and insight intact. - Musculoskeletal: Cervical spine: Muscle bulk/ tone/ strength in the bilateral upper extremities normal Vertebral body tenderness to palpation over C6 Spurling test positive Distraction test positive Facet loading test positive TTP Thoracic spine Muscle bulk / tone/ strength in the bilateral paraspinal muscles normal Vertebral body tender to palpation over Facet loading test positive TTP Lumbar spine: Motor bulk/ tone/ strength lower extremities , thigh and legs : 5/5 Deep tendon reflexes : Normal Knee Jerk. Normal Ankle Jerk . Vertebral body tenderness to palpation over L4 Lumbar Facet Loading Test positive Straight Leg Raise: positive at 30 degrees right side/ left side Gaenslen's Test positive Sacral spine : Severe tenderness over the Sacroiliac joint: right side / left side Range of motion: Flexion of the lumbar spine <60 degrees Range of motion: Extension of the lumbar spine <20 degrees Gaenslen's Test positive R / L Vannesa test: positive right side / left side Thigh Thrust Test positive R / L Sacral Thrust Test positive R/ L Assessment and plan: Chronic LBP secondary to lumbar DDD, spondylosis with facet arthropathy without myelopathy Recommendation of lumbar x ray and PT x 6 wks M51.36. All questions answered. I have spent less than 30 minutes on patient care today. Dr Sidhu was available by phone for the evaluation of this patient. The time was used to review the medical records including relevant urine studies and Prescription history (MAPs), review of the available imaging, evaluation and examination of the patient, coordination of care with the medical staff and if applicable referring physicians, as well as creation of the medical record PQRS Narrative: Smoking Status Current every day smoker Narcotic Agreement Date Signed 02/01/18 Hx Alcohol Use (MH) Yes: social Home Medications: Ambulatory Orders Albuterol Nebulized [Ventolin Nebulized] 2.5 mg INHALATION QID PRN 04/26/14 Beclomethasone Dipropionate [Qvar 80 mcg/puff] 2 puff INHALATION BID PRN 04/26/14 lamoTRIgine [LaMICtal] 200 mg PO DAILY 01/26/17 Cyclobenzaprine [Flexeril] 10 mg PO BID PRN 12/08/18 Omeprazole [PriLOSEC] 20 mg PO BID PRN 03/10/19 ARIPiprazole [Abilify] 15 mg PO DAILY 04/20/20 Sertraline [Zoloft] 50 mg PO DAILY 04/20/20 Celecoxib [CeleBREX] 50 mg PO DAILY 03/11/22 Gabapentin [Neurontin] 400 mg PO TID 05/01/22 HYDROcodone/APAP 10-325MG [Grant 10-325] 1 tab PO Q4-6H PRN 06/25/22 Controlled Substance Measures - Controlled Substance Measures Is patient prescribed a controlled substance at discharge?: No
== END ==
LOC: PNWHC3 08:07
PROVIDERS: ATTEND Specialist
DX: M51.37 Other intervertebral disc degeneration, lumbosacral region (principal); M47.817 Spondylosis without myelopathy or radiculopathy, lumbosacral region; M43.16 Spondylolisthesis, lumbar region; F17.200 Nicotine dependence, unspecified, uncomplicated; G89.29 Other chronic pain; Z91.013 Allergy to seafood; Z91.030 Bee allergy status; Z91.038 Other insect allergy status
CPT/HCPCS: 72100; G0463; 99211

== ENCOUNTER → 2023-09-07 | Outpatient (CLI) | payer OTHER ==
--- NOTE | 2023-09-08 22:00 | MR ---
EXAMINATION TYPE: MR lumbar spine wo con DATE OF EXAM: 09/07/2023 10:43 PM CLINICAL INDICATION:Male, 33 years old with history of M51.36; PHH, Chronic pain radiating down both legs. COMPARISON: 10/10/2016 07/31/2017 TECHNIQUE: Multi planar, multi sequence imaging was performed utilizing: T1-weighted, T2-weighted, a nd turbo inversion recovery imaging of the lumbar spine. IV Contrast: cc . (None if empty) FINDINGS: Alignment: The lumbar vertebral bodies have preserved heights with grade 1 anterolisthesis of and L3 on L4. Cord: The conus medullaris and the distal spinal cord appear unremarkable with regards to their signa l intensity and morphology. Bones/Discs: Minimal disc degeneration changes worse at L3-L5 with disc space narrowing, osteophytes and Modic endplate changes. There are Schmorl's nodes most pronounced at the L1 superior endplate. Mu ltilevel disc desiccation is present. T12-L1: No evidence of significant spinal canal stenosis or neural foraminal stenosis. L1-L2: No evidence of significant spinal canal stenosis or neural foraminal stenosis. L2-L3: No evidence of significant spinal canal stenosis or neural foraminal stenosis. L3-L4: Disc uncovering from grade 1 anterolisthesis and facet joint arthropathy with mild to moderate spinal canal stenosis there may be superimposed central protrusion at this level. Additionally there is moderate to severe bilateral neural foraminal stenosis. L4-L5: Disc bulge and facet joint arthropathy result in mild to moderate spinal canal and moderate to severe bilateral neural foraminal stenosis. There is left central disc extrusion series 411 image 7 and has decreased in size from 10/10/2016. L5-S1: The disc is rounded posterior morphology without significant spinal canal stenosis. Facet join t arthropathy with mild bilateral neural foraminal stenosis. No significant spinal canal or neural foraminal stenosis in the remainder of the visualized levels. Other findings: None. IMPRESSION: 1. Mild to moderate L3-L4 and L4-5 spinal calcinosis. Superimposed L4-L5 disc extrusion seen on prio r has decreased in size. 2. Grade 1 1 anterolisthesis of L3 on L4 with disc uncovering/possible protrusion. 3. Multilevel disc degeneration with associated osteoarthritic changes worse at L3-L4 and L4-L5. Thi s results in moderate to severe severe L3-L4 and L4-L5 neural foraminal stenosis bilaterally.
== END | disposition home or self-care (01) ==
LOC: RADMRIMAIN 21:50
PROVIDERS: ATTEND Specialist
DX: M51.36 Other intervertebral disc degeneration, lumbar region (principal); M43.16 Spondylolisthesis, lumbar region; M47.816 Spondylosis without myelopathy or radiculopathy, lumbar region; M99.73 Connective tissue and disc stenosis of intervertebral foramina of lumbar region
CPT/HCPCS: 72148

== ENCOUNTER → 2023-09-30 | Outpatient (CLI) | payer OTHER ==
[2023-09-30 09:51] VITALS: BP 128/89; PULSE 74; RESP 16; TEMP 98.4
--- NOTE | 2023-09-30 14:09 | P.PAINPG ---
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 Pain level is provoked at 8/10 in intensity, constant, localized in the lower lumbar spine, predominantly axial and pressure like in character w occasional shooting pain straight down the LLE. Pain is provoked by standing/ walking for periods of 15 min or more. Pain is alleviated with PT w massage x 6-8 wks in May 2022, heat, hot showers, medications, topical, repositioning and rest. Oswestry axial pain score of 21. Interventional pain procedures completed include KYRA C6-7 x3, BL RFA L3-L5 (May 2020, May 2023) Patient is currently on Ibu, Celebrex, Neurontin, Gates, Biofreeze gel Patient denies any side effects of the medication(s), denies excessive drowsiness or sleepiness, denies suicidal ideation and reports that the current pain medication is helping to control the pain and improve activities of daily living. Patient denies any motor or sensory deficits. Patient denies any fever or night sweats, denies any change in the bowel movements or urination. Physical Examination: -Constitutional: Cooperative. Not in acute distress . - Neurologic: Cranial nerve II to XII intact. No focal neurological deficits. - Psychatric: Alert & oriented x 3. Matching mood & appropriate affect. Judgment and insight intact. - Musculoskeletal: Cervical spine: Muscle bulk/ tone/ strength in the bilateral upper extremities normal Vertebral body tenderness to palpation over C6 Spurling test positive Distraction test positive Facet loading test positive TTP Thoracic spine Muscle bulk / tone/ strength in the bilateral paraspinal muscles normal Vertebral body tender to palpation over Facet loading test positive TTP Lumbar spine: Motor bulk/ tone/ strength lower extremities , thigh and legs : 5/5 Deep tendon reflexes : Normal Knee Jerk. Normal Ankle Jerk . Vertebral body tenderness to palpation over L4 Lumbar Facet Loading Test positive Straight Leg Raise: positive at 30 degrees right side/ left side Gaenslen's Test positive Sacral spine : Severe tenderness over the Sacroiliac joint: right side / left side Range of motion: Flexion of the lumbar spine <60 degrees Range of motion: Extension of the lumbar spine <20 degrees Gaenslen's Test positive R / L Vannesa test: positive right side / left side Thigh Thrust Test positive R / L Sacral Thrust Test positive R/ L Imaging: MRI noncontrast of the lumbar spine from 09/07/23 reviewed Assessment and plan: Chronic LBP secondary to lumbar stenosis, DDD, spondylosis with facet arthropathy without myelopathy Recommendation of PT to focus on therapeutic massage M51.36. If ineffective, will try KYRA L4-L5 #1 but may need to consider surgery at a later time. All questions answered. I have spent less than 30 minutes on patient care today. Dr Sidhu was available by phone for the evaluation of this patient. The time was used to review the medical records including relevant urine studies and Prescription history (MAPs), review of the available imaging, evaluation and examination of the patient, coordination of care with the medical staff and if applicable referring physicians, as well as creation of the medical record PQRS Narrative: Smoking Status Current every day smoker Narcotic Agreement Date Signed 02/01/18 Hx Alcohol Use (MH) Yes: social Home Medications: Ambulatory Orders Albuterol Nebulized [Ventolin Nebulized] 2.5 mg INHALATION QID PRN 04/26/14 Beclomethasone Dipropionate [Qvar 80 mcg/puff] 2 puff INHALATION BID PRN 04/26/14 lamoTRIgine [LaMICtal] 200 mg PO DAILY 01/26/17 Cyclobenzaprine [Flexeril] 10 mg PO BID PRN 12/08/18 Omeprazole [PriLOSEC] 20 mg PO BID PRN 03/10/19 ARIPiprazole [Abilify] 15 mg PO DAILY 04/20/20 Sertraline [Zoloft] 50 mg PO DAILY 04/20/20 Celecoxib [CeleBREX] 50 mg PO DAILY 03/11/22 Gabapentin [Neurontin] 400 mg PO TID 05/01/22 HYDROcodone/APAP 10-325MG [Gates 10-325] 1 tab PO Q4-6H PRN 06/25/22 Controlled Substance Measures - Controlled Substance Measures Is patient prescribed a controlled substance at discharge?: Yes When asked, does pt state using other controlled substances?: Yes If prescribed controlled substance>3 days was MAPS reviewed?: Prescribed <3 Days
== END ==
LOC: PNWHC3 08:40
PROVIDERS: ATTEND Specialist
DX: M47.816 Spondylosis without myelopathy or radiculopathy, lumbar region (principal); M51.36 Other intervertebral disc degeneration, lumbar region; M48.061 Spinal stenosis, lumbar region without neurogenic claudication; G89.29 Other chronic pain; F17.200 Nicotine dependence, unspecified, uncomplicated; Z91.013 Allergy to seafood; Z91.030 Bee allergy status; Z91.038 Other insect allergy status
CPT/HCPCS: 99211

== ENCOUNTER 2024-04-03 19:31 | Emergency (ER) | payer OTHER ==
[2024-04-03 19:57] VITALS: RESP 18; TEMP 98.3
--- NOTE | 2024-04-03 20:13 | ED ---
General Adult HPI - General Source: patient Mode of arrival: ambulatory Limitations: no limitations <Lyndon Pickering - Last Filed: 04/03/24 20:46> <Kumar Asif - Last Filed: 04/15/24 22:00> - General Chief complaint: Dizziness Stated complaint: Hypertension, Headaches Time Seen by Provider: 04/03/24 20:03 - History of Present Illness Initial comments: Dictation was produced using [employer] dictation software. please excuse any grammatical, word or spelling errors. Chief Complaint: 33-year-old male presents to the emergency department congestion and hypertension History of Present Illness: Patient 33-year-old male for the last several days he has been having symptoms of throat congestion, chest congestion. He states that he has been sick. He was exposed to his who had some mild stomach cramping symptoms without any respiratory symptoms. Patient reports she has a history of asthma. Patient lost his insurance and has not follow-up with primary care doctor. He noticed that his blood pressure has been high for the last 3 days. He states blood pressure measurements has been as high as between the 140s and 150s. Patient denies any history of hypertension. He has not seen a primary care doctor in several months. Has never been diagnosed with hypertension before. The ROS documented in this emergency department record has been reviewed and confirmed by me. Those systems with pertinent positive or negative responses have been documented in the HPI. All other systems are other negative and/or noncontributory. (Lyndon Pickering) - Related Data Home Medications Medication Instructions Recorded Confirmed Albuterol Nebulized [Ventolin 2.5 mg INHALATION QID PRN 04/26/14 09/30/23 Nebulized] Beclomethasone Dipropionate [Qvar 2 puff INHALATION BID PRN 04/26/14 09/30/23 80 mcg/puff] lamoTRIgine [LaMICtal] 200 mg PO DAILY 01/26/17 09/30/23 Cyclobenzaprine [Flexeril] 10 mg PO BID PRN 12/08/18 09/30/23 Omeprazole [PriLOSEC] 20 mg PO BID PRN 03/10/19 09/30/23 ARIPiprazole [Abilify] 15 mg PO DAILY 04/20/20 09/30/23 Sertraline [Zoloft] 50 mg PO DAILY 04/20/20 09/30/23 Celecoxib [CeleBREX] 50 mg PO DAILY 03/11/22 09/30/23 Gabapentin [Neurontin] 400 mg PO TID 05/01/22 09/30/23 HYDROcodone/APAP 10-325MG [[place] 1 tab PO Q4-6H PRN 06/25/22 09/30/23 10-325] Allergies Allergy/AdvReac Type Severity Reaction Status Date / Time shellfish derived [Shellfish] Allergy Unknown Verified 04/03/24 19:59 venom-honey bee Allergy extensive Verified 04/03/24 19:59 [bee venom (honey bee)] burning and itching mosquito bites Allergy Swelling Uncoded 04/03/24 19:59 Review of Systems ROS Other: All systems not noted in ROS Statement are negative. <Lyndon Pickering - Last Filed: 04/03/24 20:46> ROS Other: All systems not noted in ROS Statement are negative. <Kumar Asif - Last Filed: 04/15/24 22:00> ROS Statement: Those systems with pertinent positive or pertinent negative responses have been documented in the HPI. Past Medical History Past Medical History: Asthma, Chest Pain / Angina, GERD/Reflux, Musculoskeletal Disorder Additional Past Medical History / Comment(s): HERNIATED DISCS, back pain radiates marissa legs, recent abd. pain, colitis rt sided chest pain,"lung pain" History of Any Multi-Drug Resistant Organisms: None Reported Past Surgical History: Cholecystectomy Additional Past Surgical History / Comment(s): myringotomy & tubes, epidural pain procedures Past Anesthesia/Blood Transfusion Reactions: No Reported Reaction, Motion Sickness Additional Past Anesthesia/Blood Transfusion Reaction / Comment(s): says tends to need alot of anesthesia to be put out Past Psychological History: ADD/ADHD, Bipolar, Depression Smoking Status: Former smoker, Vaper Past Alcohol Use History: Rare Past Drug Use History: Marijuana - Past Family History Mother Family Medical History: No Reported History Son(s) Family Medical History: Cancer Father Family Medical History: Deep Vein Thrombosis (DVT) <Lyndon Pickering - Last Filed: 04/03/24 20:46> General Exam Limitations: no limitations <Lyndon Pickering - Last Filed: 04/03/24 20:46> - General Exam Comments Initial Comments: PHYSICAL EXAM: General Impression: Alert and oriented x3, not in acute distress HEENT: Normocephalic atraumatic, extra-ocular movements intact, pupils equal and reactive to light bilaterally, mucous membranes moist, inflamed tonsils bilaterally Cardiovascular: Heart regular rate and rhythm Chest: Able to complete full sentences, no retractions, no tachypnea Abdomen: abdomen soft, non-tender, non-distended, no organomegaly Musculoskeletal: Pulses present and equal in all extremities, no peripheral edema Motor: no focal deficits noted Neurological: CN II-XII grossly intact, no focal motor or sensory deficits noted Skin: Intact with no visualized rashes Psych: Normal affect and mood (Lyndon Pickering) Course <Kumar Asif - Last Filed: 04/15/24 22:00> Vital Signs 04/03/24 04/03/24 19:51 23:02 Temperature 98.3 F Pulse Rate 72 63 Respiratory 18 18 Rate Blood Pressure 156/97 139/89 O2 Sat by Pulse 98 98 Oximetry - Reevaluation(s) Reevaluation #1: Medical records reviewed (Kumar Asif) Reevaluation #2: Patient symptoms improved (Kumar Asif) Reevaluation #3: Patient informed of results and questions answered (Kumar Asfi) Medical Decision Making <Lyndon Pickering - Last Filed: 04/03/24 20:46> - Radiology Data Radiology results: report reviewed (Chest x-ray is negative for acute disease), image reviewed <Kumar Asif - Last Filed: 04/15/24 22:00> - Medical Decision Making Was pt. sent in by a medical professional or institution (, PA, HOUSING GRANT ANALYST, urgent care, hospital, or snf...) When possible be specific @ -No Did you speak to anyone other than the patient for history (EMS, parent, family, police, friend...)? What history was obtained from this source @ -No Did you review nursing and triage notes (agree or disagree)? Why? @ -I reviewed and agree with nursing and triage notes Were old charts reviewed (outside hosp., previous admission, EMS record, old EKG, old radiological studies, urgent care reports/EKG's, snf records)? Report findings @ -No old charts were reviewed Differential Diagnosis (chest pain, altered mental status, abdominal pain women, abdominal pain men, vaginal bleeding, musculoskeletal, weakness, fever, dyspnea, syncope, headache, dizziness, GI bleed, back pain, seizure, CVA, palpatations, mental health)? @ -Differential Dyspnea: Coronary syndrome, arrhythmia, tamponade, asthma, COPD, pulmonary embolism, pneumonia, pneumothorax, pulmonary effusion, anaphylaxis, diabetic ketoacidosis, flailed chest, pulmonary contusion, diaphragmatic rupture, anemia, neuromuscular, this is not meant to be an all-inclusive list. EKG interpreted by me (3pts min.). @ -None done X-rays interpreted by me (1pt min.). @ -Chest x-ray is nonacute CT interpreted by me (1pt min.). @ -None done U/S interpreted by me (1pt. min.). @ -None done What testing was considered but not performed or refused? (CT, X-rays, U/S, labs)? Why? @ -None What meds were considered but not given or refused? Why? @ -None Was smoking cessation discussed for >3mins.? @ -No Were there social determinants of health that impacted care today? How? (Homelessness, low income, unemployed, alcoholism, drug addiction, transportation, low edu. Level, literacy, decrease access to med. care, usp, rehab)? @ -No Was there de-escalation of care discussed even if they declined (Discuss DNR or withdrawal of care, Hospice)? DNR status @ -No What co-morbidities impacted this encounter? (DM, HTN, Smoking, COPD, CAD, Cancer, CVA, ARF, Chemo, Hep., AIDS, mental health diagnosis, sleep apnea, morbid obesity)? @ -None Was patient admitted / discharged? Hospital course, mention meds given and route, prescriptions, significant lab abnormalities, going to OR and other pertinent info. @ -33-year-old male presents to the emergency department with several days of viral URI type symptoms. He also has secondary complaint of hypertension. Vital signs are stable. Patient well-appearing in no acute distress. He does have inflamed tonsils. Chest x-ray is negative. Patient care signed out to Dr. Gilliam, at 9:00 PM pending swabs results Did you discuss the management of the patient with other professionals (professionals i.e. , PA, HOUSING GRANT ANALYST, lab, RT, psych nurse, social director, administrative staff supervisor, teacher, public service officer, case making machine operator)? Give summary @ -No Was critical care preformed (if so, how long)? @ -No Undiagnosed new problem with uncertain prognosis? @ -No Drug Therapy requiring intensive monitoring for toxicity (Heparin, Nitro, Insulin, Cardizem)? @ -No Were any procedures done? @ -No Diagnosis/symptom? Acute, or Chronic, or Acute on Chronic? Uncomplicated (without systemic symptoms) or Complicated (systemic symptoms)? @ - Side effects of treatment? @ -No Exacerbation, Progression, or Severe Exacerbation? @ -No Poses a threat to life or bodily function? How? (Chest pain, [place], CA, pneumonia, PE, COPD, DKA, ARF, appy, cholecystitis, CVA, Diverticulitis, Homicidal, Suicidal, threat to staff... and all critical care pts) @ -No (Lyndon Pickering) 33 male with nonspecific symptoms, patient has no acute diagnoses here in the ER informed of results questions answered patient feels improved and can be discharged home (Kumar Asif) - Lab Data Lab Results 04/03/24 04/03/24 Range/Units 20:53 20:53 Influenza Type A (PCR) Not Detected (Not Detectd) Influenza Type B (PCR) Not Detected (Not Detectd) RSV (PCR) Not Detected (Not Detectd) SARS-CoV-2 (PCR) Not Detected (Not Detectd) Group A Strep (PCR) NOT DETECTED (Not Detectd) Disposition Is patient prescribed a controlled substance at d/c from ED?: No Time of Disposition: 20:12 <Lyndon Pickering - Last Filed: 04/03/24 20:46> Is patient prescribed a controlled substance at d/c from ED?: No <Kumar Asif - Last Filed: 04/15/24 22:00> Clinical Impression: Hypertension, Pharyngitis Disposition: HOME SELF-CARE Condition: Fair Instructions (If sedation given, give patient instructions): Pharyngitis (ED), Hypertension (ED) Referrals: Sandra Julian DO [Primary Care Provider] - 1-2 days
--- NOTE | 2024-04-03 20:39 | XR ---
EXAMINATION TYPE: XR chest 2V DATE OF EXAM: 04/03/2024 8:25 PM CLINICAL INDICATION:Male, 33 years old with history of congestion; H COMPARISON: Chest radiographs from 03/14/2022. TECHNIQUE: XR chest 2V Frontal and lateral views of the chest. FINDINGS: Lungs/Pleura: There is no evidence of pleural effusion, focal consolidation, or pneumothorax. Pulmonary vascularity: Unremarkable. Heart/mediastinum: Cardiomediastinal silhouette is unremarkable. Musculoskeletal: No acute osseous pathology. IMPRESSION: No acute cardiopulmonary disease/process.
[2024-04-03 23:08] VITALS: BP 139/89; PULSE 63
== END 2024-04-03 23:03 | disposition home or self-care (01) ==
LOC: EC 19:31
DX: J02.9 Acute pharyngitis, unspecified (principal); I10 Essential (primary) hypertension; F17.290 Nicotine dependence, other tobacco product, uncomplicated; F12.90 Cannabis use, unspecified, uncomplicated; Z91.013 Allergy to seafood; Z91.030 Bee allergy status; Z88.8 Allergy status to other drugs, medicaments and biological substances; Z11.52 Encounter for screening for COVID-19
CPT/HCPCS: 71046; 87636; 87651; 99284

== ENCOUNTER 2024-05-02 02:12 | Emergency (ER) | payer OTHER ==
[2024-05-02 02:22] VITALS: BP 147/96; PULSE 89; RESP 20; TEMP 98.6
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
[2024-05-02] MEDS: IBUPROFEN 600 MG STARTER PACK 4 TAB BTL PO STA (02:56)
[2024-05-02] MEDS: traMADol 50 MG STARTER PACK 3 TAB BTL PO STA (02:57)
[2024-05-02] MEDS: traMADol 50 MG TAB PO STA (02:58)
[2024-05-02] MEDS: HYDROmorphone 1 MG/ML 1 ML SYRINGE IM STA (02:58)
== END 2024-05-02 03:24 | disposition home or self-care (01) ==
LOC: EC 02:12
DX: T23.251A Burn of second degree of right palm, initial encounter (principal); T23.221A Burn of second degree of single right finger (nail) except thumb, initial encounter; F17.290 Nicotine dependence, other tobacco product, uncomplicated; Z91.013 Allergy to seafood; Z91.030 Bee allergy status; Z88.8 Allergy status to other drugs, medicaments and biological substances
CPT/HCPCS: 99283 ×2; 96372 ×2; J1170

== ENCOUNTER 2024-07-24 03:33 | Emergency (ER) | payer OTHER ==
[2024-07-24 03:39] VITALS: BP 134/90; PULSE 65; RESP 18; TEMP 97.4
--- NOTE | 2024-07-24 04:04 | ED ---
Skin/Abscess/FB HPI - General Chief complaint: Skin/Abscess/Foreign Body Stated complaint: Rash on arms and legs Time Seen by Provider: 07/24/24 03:40 Source: patient, RN notes reviewed, old records reviewed Mode of arrival: ambulatory Limitations: no limitations - History of Present Illness Initial comments: This is a 33-year-old male to the ER for evaluation of a rash generalized body rash has been going on since yesterday with pretty significant itching and rash and rash on the hands chest and overall generalized body with swelling facial swelling MD complaint: rash -: days(s) Tetanus Up to Date: yes Location: generalized Severity: severe Severity scale (1-10): 9 Consistency: constant Improves with: none Worsens with: none Context: none Associated symptoms: itching Treatments Prior to Arrival: none - Related Data Home Medications Medication Instructions Recorded Confirmed Albuterol Nebulized [Ventolin 2.5 mg INHALATION QID PRN 04/26/14 09/30/23 Nebulized] Beclomethasone Dipropionate [Qvar 2 puff INHALATION BID PRN 04/26/14 09/30/23 80 mcg/puff] lamoTRIgine [LaMICtal] 200 mg PO DAILY 01/26/17 09/30/23 Cyclobenzaprine [Flexeril] 10 mg PO BID PRN 12/08/18 09/30/23 Omeprazole [PriLOSEC] 20 mg PO BID PRN 03/10/19 09/30/23 ARIPiprazole [Abilify] 15 mg PO DAILY 04/20/20 09/30/23 Sertraline [Zoloft] 50 mg PO DAILY 04/20/20 09/30/23 Celecoxib [CeleBREX] 50 mg PO DAILY 03/11/22 09/30/23 Gabapentin [Neurontin] 400 mg PO TID 05/01/22 09/30/23 HYDROcodone/APAP 10-325MG [[place] 1 tab PO Q4-6H PRN 06/25/22 09/30/23 10-325] Previous Rx's Medication Instructions Recorded Famotidine [Pepcid] 40 mg PO BID #28 tablet 07/24/24 hydrOXYzine HCL [Atarax] 25 mg PO TID PRN #15 tab 07/24/24 predniSONE 50 mg PO DAILY #5 tab 07/24/24 Allergies Allergy/AdvReac Type Severity Reaction Status Date / Time shellfish derived [Shellfish] Allergy Unknown Verified 07/24/24 03:39 venom-honey bee Allergy extensive Verified 07/24/24 03:39 [bee venom (honey bee)] burning and itching mosquito bites Allergy Swelling Uncoded 07/24/24 03:39 Review of Systems ROS Statement: Those systems with pertinent positive or pertinent negative responses have been documented in the HPI. ROS Other: All systems not noted in ROS Statement are negative. Past Medical History Past Medical History: Asthma, Chest Pain / Angina, GERD/Reflux, Musculoskeletal Disorder Additional Past Medical History / Comment(s): HERNIATED DISCS, back pain radiates marissa legs, recent abd. pain, colitis rt sided chest pain,"lung pain" History of Any Multi-Drug Resistant Organisms: None Reported Past Surgical History: Ablation, Cholecystectomy Additional Past Surgical History / Comment(s): myringotomy & tubes, epidural pain procedures Past Anesthesia/Blood Transfusion Reactions: No Reported Reaction, Motion Sickness Additional Past Anesthesia/Blood Transfusion Reaction / Comment(s): says tends to need alot of anesthesia to be put out Past Psychological History: ADD/ADHD, Bipolar, Depression Smoking Status: Former smoker, Vaper Past Alcohol Use History: Rare Past Drug Use History: Marijuana - Past Family History Mother Family Medical History: No Reported History Son(s) Family Medical History: Cancer Father Family Medical History: Deep Vein Thrombosis (DVT) General Exam General appearance: alert, in no apparent distress Head exam: Present: atraumatic, normocephalic, normal inspection Eye exam: Present: normal appearance, PERRL, EOMI. Absent: scleral icterus, conjunctival injection, periorbital swelling ENT exam: Present: normal exam, mucous membranes moist Neck exam: Present: normal inspection. Absent: tenderness, meningismus, lymphadenopathy Respiratory exam: Present: normal lung sounds bilaterally. Absent: respiratory distress, wheezes, rales, rhonchi, stridor Cardiovascular Exam: Present: regular rate, normal rhythm, normal heart sounds. Absent: systolic murmur, diastolic murmur, rubs, gallop, clicks GI/Abdominal exam: Present: soft, normal bowel sounds. Absent: distended, tenderness, guarding, rebound, rigid Extremities exam: Present: normal inspection, full ROM, normal capillary refill. Absent: tenderness, pedal edema, joint swelling, calf tenderness Back exam: Present: normal inspection Neurological exam: Present: alert, oriented X3, CN II-XII intact Psychiatric exam: Present: normal affect, normal mood Skin exam: Present: warm, dry, intact, normal color. Absent: rash Course Vital Signs 07/24/24 03:36 Temperature 97.4 F L Pulse Rate 65 Respiratory 18 Rate Blood Pressure 134/90 O2 Sat by Pulse 98 Oximetry - Reevaluation(s) Reevaluation #1: 07/24/24 04:02 Medical records reviewed Reevaluation #2: 07/24/24 04:02 Patient symptoms improved Reevaluation #3: 07/24/24 04:02 Patient informed of results and questions answered Reevaluation #4: Was pt. sent in by a medical professional or institution ([facility]IE Beckwith, [employer], urgent care, hospital, or skilled nursing...) When possible be specific @ -no Did you speak to anyone other than the patient for history (EMS, parent, family, police, friend...)? What history was obtained from this source @ -no Did you review nursing and triage notes (agree or disagree)? Why? @ -agree Are old charts reviewed (outside hosp., previous admission, EMS record, old EKG, old radiological studies, urgent care reports/EKG's, skilled nursing records)? Report findings @ -yes Differential Diagnosis (chest pain, altered mental status, abdominal pain women, abdominal pain men, vaginal bleeding, weakness, fever, dyspnea, syncope, headache, dizziness, GI bleed, back pain, seizure, CVA, palpatations, mental health, musculoskeletal)? @ -prior EKG interpreted by me (3pts min.). @ -no X-rays interpreted by me (1pt min.). @ -no CT interpreted by me (1pt min.). @ -no U/S interpreted by me (1pt. min.). @ -no What testing was considered but not performed or refused? (CT, X-rays, U/S, labs)? Why? @ -none What meds were considered but not given or refused? Why? @ -none Did you discuss the management of the patient with other professionals (professionals i.e. JOLIE Beckwith, [employer], lab, RT, psych nurse, hospice social worker, spray painter, teacher, licensed mortgage loan officer, telehealth case manager)? Give summary @ -no Was smoking cessation discussed for >3mins.? @ -no Was critical care preformed (if so, how long)? @ -no Were there social determinants of health that impacted care today? How? (H omelessness, low income, unemployed, alcoholism, drug addiction, transportation, low edu. Level, literacy, decrease access to med. care, halfway, rehab)? @ -none Was there de-escalation of care discussed even if they declined (Discuss DNR or withdrawal of care, Hospice)? DNR status @ -no What co-morbidities impacted this encounter? (DM, HTN, Smoking, COPD, CAD, Cancer, CVA, ARF, Chemo, Hep., AIDS, mental health diagnosis, sleep apnea, morbid obesity)? @ -none Was patient admitted / discharged? Hospital course, mention meds given and route, prescriptions, significant lab abnormalities, going to OR and other pertinent info. @ - 33 male with allergic urticaria and hives. Patient replaced on steroids and antihistamines and can be discharged home Discharge Undiagnosed new problem with uncertain prognosis? @ -no Drug Therapy requiring intensive monitoring for toxicity (Heparin, Nitro, Insulin, Cardizem)? @ -no Were any procedures done? @ -no Diagnosis/symptom? @ -Urticaria Acute, or Chronic, or Acute on Chronic? @ -Acute Uncomplicated (without systemic symptoms) or Complicated (systemic symptoms)? @ -Complicated Side effects of treatment? @ -no Exacerbation, Progression, or Severe Exacerbation? @ -exacerbation Poses a threat to life or bodily function? How? (Chest pain, [place], [place], pneumonia, PE, COPD, DKA, ARF, appy, cholecystitis, CVA, Diverticulitis, Homicidal, Suicidal, threat to staff... and all critical care pts) @ -no Medical Decision Making - Medical Decision Making 33 male with allergic urticaria and hives. Patient replaced on steroids and antihistamines and can be discharged home Disposition Clinical Impression: Urticaria Disposition: HOME SELF-CARE Condition: Good Instructions (If sedation given, give patient instructions): Urticaria (ED) Prescriptions: hydrOXYzine HCL [Atarax] 25 mg PO TID PRN #15 tab PRN Reason: Itching Famotidine [Pepcid] 40 mg PO BID #28 tablet predniSONE 50 mg PO DAILY #5 tab Is patient prescribed a controlled substance at d/c from ED?: No Referrals: Sandra Julian DO [Primary Care Provider] - 1-2 days Time of Disposition: 04:00
[2024-07-24] MEDS: predniSONE 20 MG TAB PO STA (04:05)
[2024-07-24] MEDS: FAMOTIDINE 20 MG TAB PO STA (04:11)
[2024-07-24] MEDS: DEXAMETHASONE SOD PHOSPHATE 10 MG/ML 1 ML VIAL IM STA (04:11)
[2024-07-24] MEDS: hydrOXYzine HCL 25 MG TAB PO STA (04:17)
== END 2024-07-24 04:36 | disposition home or self-care (01) ==
LOC: EC 03:33
CPT/HCPCS: 96372; 99282

== ENCOUNTER → 2025-04-20 | Outpatient (CLI) | payer OTHER ==
[2025-04-20 08:45] VITALS: BP 146/95; PULSE 77; RESP 16
--- NOTE | 2025-04-20 12:29 | P.PAINPG ---
PQRS Measure Charge Sheet Comment: A 34 yr old male with a history of severe and chronic LBP x 1 yr secondary to radiculopathy, spondylosis with facet arthropathy without myelopathy presents today for evaluation. Pain level is provoked at 8 /10 in intensity, constant, localized in the lower lumbar spine, predominantly axial and pressure like in character w occasional shooting pain straight down the LLE. Pain is provoked by standing/ walking for periods of 15 min or more. Pain is alleviated with PT w massage x 6-8 wks in May 2022, heat, hot showers, medications, topical, repositioning and rest. Oswestry axial pain score of 2. Interventional pain procedures completed include KYRA C6-7 x3, BL RFA L3-L5 (May 2020, May 2023) Patient is currently on Ibu, Celebrex, Neurontin, [place], Biofreeze gel Patient denies any side effects of the medication(s), denies excessive drowsiness or sleepiness, denies suicidal ideation and reports that the current pain medication is helping to control the pain and improve activities of daily living. Patient denies any motor or sensory deficits. Patient denies any fever or night sweats, denies any change in the bowel movements or urination. Physical Examination: -Constitutional: Cooperative. Not in acute distress . - Neurologic: Cranial nerve II to XII intact. No focal neurological deficits. - Psychatric: Alert & oriented x 3. Matching mood & appropriate affect. Judgment and insight intact. - Musculoskeletal: Cervical spine: Muscle bulk/ tone/ strength in the bilateral upper extremities normal Vertebral body tenderness to palpation over C6 Spurling test positive Distraction test positive Facet loading test positive TTP Thoracic spine Muscle bulk / tone/ strength in the bilateral paraspinal muscles normal Vertebral body tender to palpation over Facet loading test positive TTP Lumbar spine: Motor bulk/ tone/ strength lower extremities , thigh and legs : 5/5 Deep tendon reflexes : Normal Knee Jerk. Normal Ankle Jerk . Vertebral body tenderness to palpation over L4 Lumbar Facet Loading Test positive Straight Leg Raise: positive at 30 degrees right side/ left side Gaenslen's Test positive Sacral spine : Severe tenderness over the Sacroiliac joint: right side / left side Range of motion: Flexion of the lumbar spine <60 degrees Range of motion: Extension of the lumbar spine <20 degrees Gaenslen's Test positive R / L Vannesa test: positive right side / left side Thigh Thrust Test positive R / L Sacral Thrust Test positive R/ L Imaging: MRI noncontrast of the lumbar spine from 09/07/23 reviewed Assessment and plan: Chronic LBP secondary to lumbar stenosis, radiculopathy, spondylosis with facet arthropathy without myelopathy Recommendation of PT x 6 wks . Will try KYRA L4-L5 #1 but may need to consider surgery at a later time. All questions answered. I have spent less than 30 minutes on patient care today. Dr Sidhu was available by phone for the evaluation of this patient. The time was used to review the medical records including relevant urine studies and Prescription history (MAPs), review of the available imaging, evaluation and examination of the patient, coordination of care with the medical staff and if applicable referring physicians, as well as creation of the medical record - Pain Location Bilateral Lower Back Non-Pharmacological Interventions: Chiropractic Treatment, Heat, Massage, Physical Therapy, Stretching Pharmacological Interventions: Medication, Topical Medication PQRS Narrative: Smoking Status Current every day smoker Narcotic Agreement Date Signed 02/01/18 Hx Alcohol Use (MH) Yes: social Home Medications: Ambulatory Orders Albuterol Nebulized [Ventolin Nebulized] 2.5 mg INHALATION QID PRN 04/26/14 Beclomethasone Dipropionate [Qvar 80 mcg/puff] 2 puff INHALATION BID PRN 04/26/14 lamoTRIgine [LaMICtal] 200 mg PO DAILY 01/26/17 Cyclobenzaprine [Flexeril] 10 mg PO BID PRN 12/08/18 Omeprazole [PriLOSEC] 20 mg PO BID PRN 03/10/19 ARIPiprazole [Abilify] 15 mg PO DAILY 04/20/20 Sertraline [Zoloft] 50 mg PO DAILY 04/20/20 Celecoxib [CeleBREX] 50 mg PO DAILY 03/11/22 Gabapentin [Neurontin] 400 mg PO TID 05/01/22 HYDROcodone/APAP 10-325MG [[place] 10-325] 1 tab PO Q4-6H PRN 06/25/22 Cariprazine HCl [Vraylar] 4.5 mg PO 04/20/25 Controlled Substance Measures - Controlled Substance Measures Is patient prescribed a controlled substance at discharge?: No
== END ==
LOC: PNWHC3 07:33
PROVIDERS: ATTEND Specialist
DX: M47.26 Other spondylosis with radiculopathy, lumbar region (principal); F17.200 Nicotine dependence, unspecified, uncomplicated; Z91.030 Bee allergy status; Z91.013 Allergy to seafood; Z91.038 Other insect allergy status
CPT/HCPCS: 99211